=== PATIENT | male | born 1960 | race Caucasian/White ===

== ENCOUNTER → 2017-10-10 16:01 | Outpatient (CLI) | payer OTHER, SELFPAY ==
[2017-10-10 18:03] LABS: BUN 27 mg/dL (7-18); BUN/Creat Ratio 18.5 RATIO (10-20); Calcium,Total 9.1 mg/dL (8.5-10.1); Chloride 104 mmol/L (98-107); Creatinine, Serum 1.46 mg/dL (0.70-1.30); EST Glomerular Filtration Rate 53 mL/min (>60); Est Glom Filt Rate - Afr Amer 64 mL/min (>60); Glucose 89 mg/dL (74-106); Phosphorus 3.3 mg/dL (2.5-4.9); Potassium 3.8 mmol/L (3.5-5.1); Sodium Level 141 mmol/L (136-145)
[2017-10-10 18:14] LABS: Protein, Urine (Random) < 6.0 mg/dL (<11.9)
== END ==
PROVIDERS: Family Provider Preventive Medicine Occupational Medicine; PCP Preventive Medicine Occupational Medicine; Visit Provider Internal Medicine Nephrology
DX: N17.9 Acute kidney failure, unspecified (principal)
CPT/HCPCS: 36415; 80069; 82570; 84156

== ENCOUNTER 2019-10-08 23:36 | Emergency (ER) | payer OTHER, SELFPAY ==
[2019-10-08 23:37] VITALS: BP 132/101; PULSE 95; RESP 14; TEMP 36; O2SAT 96; BMI 23.8
[2019-10-08 23:50] VITALS: BP 139/100; PULSE 80; RESP 16; O2SAT 95
--- NOTE | 2019-10-08 23:57 | ED.VIS.GEN ---
History of Present Illness Chief Complaint: Complaint Detail of Chief Complaint: bladder spasms Informant: Patient Onset: Today Context: Gradual Onset Timing: Waxes and wanes Quality: pain Location: bladder Current Severity: Mild Maximum Severity: Moderate Worsened by: trying to urinate Relieved by: nothing in particular Associated Symptoms: Trouble urinating Narrative: Patient had a TURP [address] mal[address] He had hematuria, lots of bladder spasms, leaking of urine around his Mehta, and the catheter was clogged earlier today, he went to [facility] ER about 1.5 hrs ago, they removed his catheter but did not place a new one in, he states that they were uncomfortable and told him to go to [place] if he was unable to urinate. He states when the catheter was removed, he urinated a little but not a lot. Patient preferred not to go to [place] if he could help it, and is here because now he thinks he may have urinary retention. He states he feels like he needs to urinate but he is just dribbling but does not have a lot of severe discomfort right now. He was having some bladder spasms earlier, but that has resolved since the catheter was removed. He has been urinating some amount of blood. Denies any fevers but they told him he had an infection in the urine and [place], and he was prescribed an antibiotic, he does not know what it is. - Past Medical History (1) Stage III chronic kidney disease Status: Chronic (2) BPH (benign prostatic hyperplasia) Status: Chronic Past Medical History - Allergies and Home Meds Allergies/Adverse Reactions: Allergies No Known Allergies Allergy (Verified 10/08/19 23:37) Primary Care Physician: Cliff Amaro DO [Primary Care Provider] - Surgical History: TURP Lives: Spouse/ Significant Other Drugs: None Review of Systems General: Denies: Chills, Fever, Malaise, Sweats Eyes: Denies: Visual changes - bilaterally, Diplopia ENT: Denies: Rhinorrhea, Sore throat Cardiovascular: Denies: Chest pain, Palpitations Respiratory: Denies: Dyspnea, Cough, Dyspnea on exertion Gastrointestinal: Reports: Abdominal pain. Denies: Nausea, Vomiting, Diarrhea, Melena, Hematochezia Genitourinary: Reports: Dysuria, Hematuria, - - prob urinary retention. Denies: Frequency Musculoskeletal: Reports: Back pain - right low, worse w/ movement, mild. Denies: Neck pain, Swelling, Extremity Pain Skin: Denies: Rash, Wounds Neurological: Denies: Headache, Weakness, Numbness Physical Exam Vital Signs/Narrative: Vital Signs Temp Pulse Resp BP Pulse Ox 10/08/19 23:50 80 16 139/100 H 95 10/08/19 23:37 96.8 F L 95 14 132/101 H 96 Inital Vital Signs reviewed: Yes General: Well nourished, Well developed, No Acute Distress Head: Normocephalic, Atraumatic Eyes: Perrl, EOMI ENT: Moist mucous membranes, No rhinorrhea Neck: Supple, Nontender Cardiovascular: Regular rate, Regular rhythm, No murmurs Respiratory: No distress, CTA bilaterally, Chest nontender Abdomen: Soft, Nontender, Nondistended, Normal bowel sounds Back: Nontender, Normal Inspection. Negative for: CVA tenderness, Spinal tenderness Extremities: Nontender, No edema Skin: Normal color, No rash, No Trauma Neurological: Alert, Oriented x3, Cranial nerves II-XII grossly intact, Normal Strength, Normal Sensation, Normal Gait Psychological: Normal affect, Normal Mood Diagnostic/Tx/Re-eval - Medical Decision Making Patient urinated light bloody urine without clots here in the ER, relatively small amount. He was in a lot of discomfort just afterwards due to burning dysuria, which quickly resolved. He bladder scanned for 0 after that. I discussed with Dr. Rios who was on-call for his urologist. He advised reassuring the patient, he has an appointment tomorrow morning, he should be stable to follow-up then. He does not sound obstructed. Small amounts of hematuria postoperatively especially after the catheter comes out are normal. Discussed reasons to return. Patient is comfortable with that plan. ED Disposition - Plan for ED Patient: Disposition: Home or Assisted Living Diagnosis: Hematuria, S/P TURP Instructions: ED Hematuria, Transurethral Resection of the Prostate (TURP): Home Recovery Referrals: Cliff Amaro DO [Primary Care Provider] - Billy Malik [Other] (as scheduled at 10:30 tomorrow)
== END 2019-10-09 00:44 | disposition home or self-care (01) ==
LOC: ED 10-09 00:43
PROVIDERS: Emergency Provider Emergency Medicine; PCP Preventive Medicine Occupational Medicine
DX: R31.9 Hematuria, unspecified (principal); Z98.890 Other specified postprocedural states; N40.0 Benign prostatic hyperplasia without lower urinary tract symptoms; N18.3 Chronic kidney disease, stage 3 (moderate); Z79.899 Other long term (current) drug therapy
CPT/HCPCS: 99282

== ENCOUNTER 2019-10-11 10:51 | Emergency (ER) | payer OTHER, SELFPAY ==
[2019-10-11 10:53] VITALS: BP 127/91; PULSE 95; RESP 17; TEMP 36.4; O2SAT 95; BMI 23.7
--- NOTE | 2019-10-11 11:04 | CT_ITS ---
STUDY: CT ABDOMEN AND PELVIS WITH CONTRAST REASON FOR EXAM: Male, 59 years old. ABD PAIN S/P TURP 10/01/19, CONSTIPATION X 1 WK, PRESSURE, CHOLECYSTECTOMY RADIATION DOSAGE (If Supplied By Facility): CTDIvol = ( 13.11 ) mGy, DLP = ( 678.42 ) mGycm TECHNIQUE: Transaxial images were obtained from the dome of the diaphragm to the symphysis pubis without oral contrast. IV 100mL Isovue-300 was administered. Sagittal and coronal images were reconstructed. Individualized dose optimization techniques were used for this CT. COMPARISON: None. FINDINGS: The visualized lung bases are unremarkable. The visualized portions of the heart are within normal limits. Normal liver. There are surgical clips in the gallbladder fossa consistent with a prior cholecystectomy. Normal spleen. Normal pancreas. Normal bilateral adrenal glands. Normal right kidney. There is a cyst in the left kidney measures 3 cm. Normal visualized stomach. Normal small intestine. There are multiple colonic diverticula consistent with diverticulosis. The appendix is visualized and appears normal. Normal abdominal aorta. Normal inferior vena cava. Normal retroperitoneum. Normal urinary bladder. Normal abdominal wall. There are diffuse degenerative changes of the visualized lumbar spine. CT/Abdomen/Pelvis W IV Cont ONLY IMPRESSION: Descending colon and sigmoid diverticulosis. Electronically Signed: Lala Barlow, at 13:30 EDT Tel , Service support ,
--- NOTE | 2019-10-11 11:06 | ED.VIS.GEN ---
History of Present Illness Chief Complaint: Constipation Informant: Patient Onset: Days Context: Gradual Onset Timing: Continuous Current Severity: Moderate Maximum Severity: Moderate Narrative: Patient is a 59-year-old male presents to the emergency department with abdominal pain, constipation, and bladder spasm. The patient had a TURP done at [facility] on the 12th of this month. His postoperative care was complicated because he had obstruction of his three-way catheter. It was removed. The patient states he has been voiding without issue. He states over the past 2 days, he has had a lot more spasm in his bladder. He states he has been taking stool softener, but has not had any stool output. He called his urologist referred him to the emergency department. He denies any fevers or chills. He has no history of prior abdominal surgery. He is otherwise been in his normal state of health. Prior similar symptoms: No Recent Illness/Hospitalization: Yes Past Medical History - Allergies and Home Meds Allergies/Adverse Reactions: Allergies NSAIDS (Non-Steroidal Anti-Inflamma Adverse Reaction (Verified 10/11/19 10:53) STAGE 3 KIDNEY DISEASE Primary Care Physician: Cliff Amaro DO [Primary Care Provider] - Prior records reviewed: Yes Past Medical History: None Surgical History: TURP Smoking Status: Former smoker Review of Systems General: Denies: Chills, Fever, Sweats Eyes: Denies: Visual changes - bilaterally, Diplopia ENT: Denies: Rhinorrhea, Sore throat Cardiovascular: Denies: Chest pain, Palpitations Respiratory: Denies: Dyspnea, Cough, Dyspnea on exertion Gastrointestinal: Reports: Abdominal pain, Constipation. Denies: Nausea, Vomiting, Diarrhea, Melena, Hematochezia Genitourinary: Reports: Frequency. Denies: Dysuria, Hematuria Musculoskeletal: Denies: Back pain, Extremity Pain Skin: Denies: Rash, Wounds Neurological: Denies: Headache, Weakness, Numbness Physical Exam Vital Signs/Narrative: Vital Signs Temp Pulse Resp BP Pulse Ox 10/11/19 10:53 97.6 F L 95 17 127/91 H 95 Inital Vital Signs reviewed: Yes General: Well nourished, Well developed, No Acute Distress Head: Normocephalic, Atraumatic Eyes: Perrl, EOMI ENT: Moist mucous membranes, No rhinorrhea Neck: Supple, Nontender Cardiovascular: Regular rate, Regular rhythm, No murmurs Respiratory: No distress, CTA bilaterally, Chest nontender Abdomen: Soft, Nontender, Nondistended, Normal bowel sounds Back: Nontender, Normal Inspection Extremities: Nontender, No edema Skin: Normal color, No rash Neurological: Alert, Oriented x3, Cranial nerves II-XII grossly intact, Normal Strength, Normal Sensation Psychological: Normal affect, Normal Mood Diagnostic/Tx/Re-eval Clinical Impression(s) from Imaging Studies Abdomen/Pelvis CT 10/11/19 11:04 IMPRESSION: Descending colon and sigmoid diverticulosis. Electronically Signed: Lala Barlow, at 13:30 EDT Tel , Service support , Abnormal Lab Results 10/11/19 10/11/19 10/11/19 11:07 11:07 12:25 WBC 6.9 RBC 5.14 Hgb 14.7 Hct 45.2 MCV 87.9 MCH 28.6 MCHC 32.5 RDW Std Deviation 38.7 RDW Coeff of Armen 12.0 Plt Count 318 MPV 10.1 Immature Gran % (Auto) 0.300 Neut % (Auto) 71.8 H Lymph % (Auto) 17.4 L [place] % (Auto) 6.9 Eos % (Auto) 3.2 Baso % (Auto) 0.4 Absolute Neuts (auto) 5.0 Absolute Lymphs (auto) 1.21 Nucleated RBC % 0 Sodium 138 Potassium 3.8 Chloride 102 Carbon Dioxide 26.0 Anion Gap 10 BUN 29 H Creatinine 1.35 H Estim Creat Clear Calc 63.52 Est GFR (MDRD) Af Amer 70 Est GFR (MDRD) Non-Af 58 L BUN/Creatinine Ratio 21.5 H Glucose 112 H Calcium 9.6 Total Bilirubin 1.10 H AST 20 ALT 37 Alkaline Phosphatase 63 Total Protein 8.2 Albumin 3.6 Globulin 4.6 H Albumin/Globulin Ratio 0.8 L Urine Color Brown Urine Clarity Sl. Cloudy Urine pH 5.0 Ur Specific [place] 1.025 Urine Protein 100 H Urine Glucose (UA) Normal Urine Ketones 15 H Urine Occult Blood 250 H Urine Nitrite Positive H Urine Bilirubin 1 H Urine Urobilinogen 4 H Ur Leukocyte Esterase 100 H Urine RBC > 100 SEEN Urine WBC 5-10 SEEN Ur Squamous Epith Cells 0 SEEN Urine Bacteria 1+ Urine Mucus 0 SEEN - Medical Decision Making Patient presents with bladder spasm and constipation after TURP procedure. He is afebrile. His abdomen is soft and nontender. He was concerned that he may have had an obstruction. With his recent intervention, I did want to rule out deep space process. Screening labs were obtained were unremarkable. His urine does show evidence of infection and he has been on antibiotics for 3 days. Culture was added. CT does not show evidence of obstruction or other dangerous process. I did discuss the patient with urology who is in agreement for changing antibiotics to Cipro and adding antispasmodics. This was discussed with the patient and who are comfortable with this. He will be discharged home. Impression 1. Cystitis 2. Bladder spasm ED Disposition - Plan for ED Patient: Instructions: ED Constipation, ED CYSTITIS Male Adult Prescriptions: Ciprofloxacin [Cipro] 500 mg PO BID #14 tab Prescription Printed Oxybutynin [Ditropan] 5 mg PO BID #10 tab Prescription Printed Referrals: Cliff Amaro DO [Primary Care Provider] -
[2019-10-11] MEDS: 0.9% Normal Saline 1,000 ML 125 ML IV (11:23)
[2019-10-11 11:25] LABS: Absolute Lymphocyte Count 1.21 X10^3/uL (0.83-4.51); Basophil# 0.03 X10^3/uL; Basophil% 0.4 % (0-1); Eosinophil# 0.22 X10^3/uL; Eosinophils% 3.2 % (0-5); Hematocrit 45.2 % (40-54); Hemoglobin 14.7 g/dL (13.0-16.5); Lymphocyte # 1.21 X10^3/ul (4.0); Lymphocyte % 17.4 % (19-41); Mean Corp Hgb Conc 32.5 g/dL (32-36); Mean Corpuscular Hgb 28.6 pg (27.0-32.0); Mean Corpuscular Volume 87.9 fL (80-94); Mean Platelet Vol. 10.1 fl (6.2-12.0); Monocyte# 0.48 X10^3/uL; Monocyte% 6.9 % (0-10); NRBC Flagged by Analyzer 0 % (0-5); Neutrophil # 4.98 X10^3/uL (2.7-7.7); Neutrophil % 71.8 % (47-70); Platelet Count 318 K/mm3 (150-450); RBC Distribution Width SD 38.7 fl (35.1-43.9); Red Blood Count 5.14 M/mm3 (4.6-6.2); White Blood Count 6.9 K/mm3 (4.4-11.0)
[2019-10-11 11:40] LABS: ALB/GLOB Ratio 0.8 RATIO (0.9-2.4); AST(SGOT) 20 U/L (15-37); Alanine Aminotransfer ALT/SGPT 37 U/L (16-61); Albumin, Serum 3.6 g/dL (3.2-5.0); Alkaline Phosphatase 63 U/L (45-117); Anion Gap 10 (5-15); BUN 29 mg/dL (7-18); BUN/Creat Ratio 21.5 RATIO (10-20); Calcium,Total 9.6 mg/dL (8.5-10.1); Chloride 102 mmol/L (98-107); Creatinine, Serum 1.35 mg/dL (0.70-1.30); EST Glomerular Filtration Rate 58 mL/min (>60); Est Glom Filt Rate - Afr Amer 70 mL/min (>60); Estimated Creatinine Clearance 63.52 ml/min; Globulin 4.6 g/dL (2.2-4.2); Glucose 112 mg/dL (74-106); Potassium 3.8 mmol/L (3.5-5.1); Protein, Total 8.2 g/dL (6.4-8.2); Sodium Level 138 mmol/L (136-145)
[2019-10-11 12:41] LABS: Mucous, Urine 0 SEEN /hpf (<or=2+); Squamous Epithelial Cells - UA 0 SEEN /hpf (0-5)
[2019-10-11 12:45] LABS: Color, Urine Brown (Yellow); Glucose, Dipstick Normal (Normal); Ketone-Dipstick 15 mg/dl (Negative); Leukocyte Esterase-Dipstick 100 /ul (Negative); Nitrite-Dipstick Positive (Negative); Occult Blood-Urine 250 /ul (Negative); Protein-Dipstick 100 mg/dl (Negative); Specific Gravity, Urine 1.025 (1.002-1.030); Urine Clarity Sl. Cloudy (Clear); Urine Urobilinogen 4 mg/dl (Normal)
[2019-10-11 12:52] LABS: Urine Bilirubin Dipstick 1 mg/dL (Negative)
[2019-10-11 12:56] LABS: Bacteria 1+ /hpf (None Seen); Red Blood Cells-Urine > 100 SEEN /hpf (0-5); White Blood Cells 5-10 SEEN /hpf (0-5)
[2019-10-11 14:13] VITALS: BP 138/77; PULSE 79; RESP 16; O2SAT 98
== END 2019-10-11 14:20 | disposition home or self-care (01) ==
LOC: ED 11:32
PROVIDERS: Emergency Provider Emergency Medicine; PCP Preventive Medicine Occupational Medicine
DX: N30.90 Cystitis, unspecified without hematuria (principal); N32.89 Other specified disorders of bladder; K57.30 Diverticulosis of large intestine without perforation or abscess without bleeding; K59.00 Constipation, unspecified; Z87.891 Personal history of nicotine dependence
CPT/HCPCS: 74177; 80053; 81001; 85025; 87086; 96360; 96361; 99284; J7030; Q9967

== ENCOUNTER 2019-10-13 18:34 | Emergency (ER) | payer OTHER, SELFPAY ==
[2019-10-13 18:34] VITALS: BP 129/92; PULSE 100; RESP 18; TEMP 36.6; O2SAT 95; BMI 23.8
[2019-10-13 18:36] VITALS: BP 129/92; PULSE 100; RESP 18; TEMP 36.6; O2SAT 95
--- NOTE | 2019-10-13 19:06 | ED.VIS.GEN ---
History of Present Illness Chief Complaint: Complaint Informant: Patient Onset: Days Context: Gradual Onset Timing: Intermittent Narrative: Patient is a 59-year-old male that is 12 days postop from a TURP performed by at [facility] presenting with difficulty urinating and bladder spasms. Patient's postoperative course has been located by retention caused by sedimentation or blockage of his three-way Mehta catheter.His three-way Mehta catheter was removed on the , 5 days ago. Since then patient has had some difficulty urinating felt like he has been dribbling and not able to have a good stream of urine. He was seen in our ER on the for continued bladder spasms and discomfort. He was continued to have hematuria as well. At that time he did not have any acute urinary retention. He had a CT his abdomen pelvis which did not show any significant intra-abdominal process. Patient states he is also been constipated that time however he had a really good bowel movement today after 3 days of home medications. Patient is concerned because he gets strong urges to urinate but can only get a very small amount of urine out. He has discomfort in his lower abdomen/suprapubic region. He is currently on Cipro, oxybutynin, fenofibrate and tamsulosin. He denies any other complaints at this time including fever or chills or back pain. Past Medical History - Allergies and Home Meds Allergies/Adverse Reactions: Allergies NSAIDS (Non-Steroidal Anti-Inflamma Adverse Reaction (Verified 10/13/19 18:34) STAGE 3 KIDNEY DISEASE Primary Care Physician: Cliff Amaro DO [Primary Care Provider] - Past Medical History: - - CKD 3, BPH Surgical History: TURP Lives: Spouse/ Significant Other Smoking Status: Former smoker Review of Systems General: Denies: Chills, Fever, Sweats Eyes: Denies: Visual changes - bilaterally, Diplopia ENT: Denies: Rhinorrhea, Sore throat Cardiovascular: Denies: Chest pain, Palpitations Respiratory: Denies: Dyspnea, Cough, Dyspnea on exertion Gastrointestinal: Denies: Abdominal pain, Nausea, Vomiting, Diarrhea, Melena, Hematochezia Genitourinary: Reports: Dysuria, - - Bladder spasms, urinary retention. Denies: Hematuria, Frequency Musculoskeletal: Denies: Back pain, Extremity Pain Skin: Denies: Rash, Wounds Neurological: Denies: Headache, Weakness, Numbness Physical Exam Vital Signs/Narrative: Vital Signs Temp Pulse Resp BP Pulse Ox 10/13/19 18:36 97.9 F 100 18 129/92 H 95 10/13/19 18:34 97.9 F 100 18 129/92 H 95 Inital Vital Signs reviewed: Yes General: Well nourished, Well developed, No Acute Distress Head: Normocephalic, Atraumatic Eyes: Perrl, EOMI ENT: Moist mucous membranes, No rhinorrhea Neck: Supple, Nontender Cardiovascular: Regular rate, Regular rhythm, No murmurs Respiratory: No distress, CTA bilaterally, Chest nontender Abdomen: Soft, Nontender, Nondistended, Normal bowel sounds, - - Bladder is not palpable however he does have tenderness in the suprapubic region. Back: Nontender, Normal Inspection. Negative for: CVA tenderness Extremities: Nontender, No edema Skin: Normal color, No rash Neurological: Alert, Oriented x3, Cranial nerves II-XII grossly intact, Normal Strength, Normal Sensation Psychological: Normal affect, Normal Mood Diagnostic/Tx/Re-eval Laboratory Data 10/13/19 19:44 Urine Color [place] Urine Clarity Cloudy Urine pH 5.0 Ur Specific [place] 1.030 Urine Protein 100 H Urine Glucose (UA) Normal Urine Ketones 5 H Urine Occult Blood 250 H Urine Nitrite Positive H Urine Bilirubin 1 H Urine Urobilinogen 4 H Ur Leukocyte Esterase 100 H Urine RBC 50-100 SEEN Urine WBC 10-25 SEEN Ur Squamous Epith Cells 0 SEEN Calcium Oxalate Crystal RARE Amorphous Sediment 2+ Urine Bacteria 0 SEEN Urine Mucus 0 SEEN - Medical Decision Making Patient is evaluated for bladder spasms and urinary retention. He is 2 weeks postop from a TURP. Urinalysis is consistent with infection. Prior to urinalysis over the last week were more consistent with hematuria with negative cultures. Patient will be switched from Cipro which he is currently on to Keflex. Repeat culture sent. Mehta catheter is placed which he tolerated well. Patient ultimately had 600 cc of dark brown urine out. No obvious clots or sediment. Irrigation was not required. I did discuss the case with his urologist, , who is agreeable with plan. As patient does not have any further spasms he does not need any further medicine for pain control emergency room. Patient is counseled on Mehta catheter care and how to flush it. He is given a leg bag as well as larger bag for nighttime. Patient has Keflex at home so he will take his first dose tonight but he is given a new prescription for 5-day course. Patient is counseled on signs and symptoms requiring return to the emergency room. Patient verbalizes agreement and understand this plan. Patient discharged home in stable and improved condition. ED Disposition - Plan for ED Patient: Disposition: Home or Assisted Living Diagnosis: UTI (urinary tract infection), Urinary retention Instructions: ED Mehta Catheter Care, ED Urinary Retention Male, ED CYSTITIS Male Adult Prescriptions: Cephalexin [Keflex] 500 mg PO BID #10 cap Transmission Status: Received by [facility]/pharmacy #[id number] Referrals: Cliff Amaro DO [Primary Care Provider] - Additional Instructions: Call your urology office on Monday to set up follow-up for later this week for reevaluation of your Mehta catheter. Your urine is highly suspicious for urinary tract infection today. We will restart you on Keflex. Please take a dose tonight when you get home. If your Mehta catheter is not draining or you feel like your bladder is full, please flush the catheter as you were taught today. Return the emergency room with any worsening symptoms.
[2019-10-13] MEDS: Lidocaine Jelly 2% 20 ML Syringe (URO-JET) 20 APPLIC TOPICAL (19:26)
[2019-10-13 20:04] LABS: Bacteria 0 SEEN /hpf (None Seen); Mucous, Urine 0 SEEN /hpf (<or=2+); Squamous Epithelial Cells - UA 0 SEEN /hpf (0-5)
[2019-10-13 20:06] LABS: Color, Urine Amber (Yellow); Glucose, Dipstick Normal (Normal); Ketone-Dipstick 5 mg/dl (Negative); Leukocyte Esterase-Dipstick 100 /ul (Negative); Nitrite-Dipstick Positive (Negative); Occult Blood-Urine 250 /ul (Negative); Protein-Dipstick 100 mg/dl (Negative); Urine Clarity Cloudy (Clear); Urine Urobilinogen 4 mg/dl (Normal)
[2019-10-13 20:23] LABS: Urine Bilirubin Dipstick 1 mg/dL (Negative)
[2019-10-13 20:26] LABS: Amorphous Sediment 2+; White Blood Cells 10-25 SEEN /hpf (0-5)
[2019-10-13 20:27] LABS: Calcium Oxalate Crystals Ur RARE /hpf (<or=2+)
[2019-10-13 20:28] LABS: Red Blood Cells-Urine 50-100 SEEN /hpf (0-5)
[2019-10-13 20:34] VITALS: BP 125/82; PULSE 89; RESP 18; O2SAT 96
== END 2019-10-13 22:19 | disposition home or self-care (01) ==
PROVIDERS: Emergency Provider Emergency Medicine; PCP Preventive Medicine Occupational Medicine
DX: N39.0 Urinary tract infection, site not specified (principal); N40.1 Benign prostatic hyperplasia with lower urinary tract symptoms; R33.8 Other retention of urine; N18.3 Chronic kidney disease, stage 3 (moderate); Z79.899 Other long term (current) drug therapy; Z87.891 Personal history of nicotine dependence
CPT/HCPCS: 51702; 81001; 87086; 99283

== ENCOUNTER 2019-10-15 05:20 | Emergency (ER) | payer OTHER, SELFPAY ==
[2019-10-15 05:21] VITALS: BP 126/86; PULSE 80; RESP 16; TEMP 36.6; O2SAT 99; BMI 25.1
--- NOTE | 2019-10-15 06:05 | ED.VIS.GEN ---
History of Present Illness Chief Complaint: Complaint Informant: Patient Onset: Hours - several Timing: Intermittent Quality: suprapubic pressure, perineal pain Current Severity: Mild Maximum Severity: Severe Worsened by: nothing in particular Relieved by: nothing Narrative: Patient has been seen here multiple times in the past week. Initially seen by me because he was concerned that he had a urinary obstruction after having his clogged catheter removed postoperative from his TURP, he then returned 4 days later for fear of the same thing, he was flowing well, imaging was obtained, and after discussing with his urologist then, the physician placed him on Cipro for possible UTI. The culture from that day returned negative, from my review now. He then returned 2 days later and had urinary retention, had a catheter placed for 600 cc, he was having intense bladder spasms and pain before that, the catheter relieve that discomfort temporarily, but now he presents after having more bladder spasms and although his urine has been flowing through the catheter into the bag, it has been less tonight overnight, and he is fearful that he has an obstructed catheter again. He states he flushed at home, and when he flushed with 30 cc of fluid, only 20 came out, hence his fear. He was switched to cephalexin which she is been taking and another culture was sent, which is not yet returned/resulted. He denies any fevers, nausea, vomiting, other symptoms. He has not followed up with his urologist yet because it has been a holiday weekend, he is due to call today for an appointment. - Past Medical History (1) BPH (benign prostatic hyperplasia) Status: Chronic (2) Stage III chronic kidney disease Status: Chronic Past Medical History - Allergies and Home Meds Allergies/Adverse Reactions: Allergies NSAIDS (Non-Steroidal Anti-Inflamma Adverse Reaction (Verified 10/15/19 05:26) STAGE 3 KIDNEY DISEASE Primary Care Physician: Cliff Amaro DO [Primary Care Provider] - Surgical History: TURP Lives: Spouse/ Significant Other Smoking Status: Never smoker Review of Systems General: Denies: Chills, Fever, Sweats Eyes: Denies: Visual changes - bilaterally, Diplopia ENT: Denies: Rhinorrhea, Sore throat Cardiovascular: Denies: Chest pain, Palpitations Respiratory: Denies: Dyspnea, Cough, Dyspnea on exertion Gastrointestinal: Reports: Abdominal pain. Denies: Nausea, Vomiting, Diarrhea, Melena, Hematochezia Genitourinary: Denies: Hematuria Musculoskeletal: Denies: Neck pain, Back pain, Extremity Pain Skin: Denies: Rash, Wounds Neurological: Denies: Headache, Weakness, Numbness Physical Exam Vital Signs/Narrative: Vital Signs Temp Pulse Resp BP Pulse Ox 10/15/19 05:21 97.9 F 80 16 126/86 H 99 Inital Vital Signs reviewed: Yes General: Well nourished, Well developed, No Acute Distress Head: Normocephalic, Atraumatic Eyes: Perrl, EOMI Cardiovascular: Regular rate, Regular rhythm. Negative for: Tachycardia Respiratory: No distress, CTA bilaterally Abdomen: Soft, Nondistended, Normal bowel sounds, Tender - Mild suprapubic only. Negative for: Guarding, Rebound tenderness Back: Nontender, Normal Inspection. Negative for: CVA tenderness Skin: Normal color, No rash Neurological: Alert, Oriented x3, Cranial nerves II-XII grossly intact, Normal Strength, Normal Sensation, Normal Gait Psychological: Normal Mood, - - Anxious Diagnostic/Tx/Re-eval - Medical Decision Making Patient had a bladder scan was 0. We irrigated his Mehta with 60 cc of sterile saline, each 30 cc aliquot immediately return 20 cc, followed by a small amount later in the catheter. This indicates that the catheter is patent. Patient is concerned why he has not had as much urine output and why it looks dark. He drank 3 bottles of water yesterday. He was advised that overnight, since we are basically sleeping we tend not to drink as much and put out as much urine, plus he also has stage III chronic kidney disease. Patient is reassured and given a belladonna opium suppository which he refused to take but was offered to take it with him. He was requesting a small bottle of saline to take in case he wants to irrigate at home, I recommend not doing this on a routine basis only if he needs to, and he was advised to follow-up with his urologist to continue the cephalexin until the culture returns. ED Disposition - Plan for ED Patient: Disposition: Home or Assisted Living Diagnosis: Bladder spasms Instructions: ED Mehta Catheter Care Referrals: Cliff Amaro DO [Primary Care Provider] - Billy Mccarthy [Other] (thien) Additional Instructions: Do not flush her catheter regularly unless your urologist wants you to. Rather, only attempt to flush if you are having discomfort and there is no output.
[2019-10-15 07:02] VITALS: PULSE 88; RESP 16; O2SAT 98
== END 2019-10-15 07:06 | disposition home or self-care (01) ==
LOC: ED 07:06
PROVIDERS: Emergency Provider Emergency Medicine; PCP Preventive Medicine Occupational Medicine
DX: N32.89 Other specified disorders of bladder (principal); Z96.0 Presence of urogenital implants; N18.3 Chronic kidney disease, stage 3 (moderate); N40.0 Benign prostatic hyperplasia without lower urinary tract symptoms; Z79.899 Other long term (current) drug therapy
CPT/HCPCS: 99282

== ENCOUNTER → 2020-07-10 15:46 | Outpatient (CLI) | payer OTHER, SELFPAY ==
--- NOTE | 2020-07-10 15:49 | CT_ITS ---
STUDY: CT ABDOMEN AND PELVIS WITHOUT CONTRAST REASON FOR EXAM: Male, 60 years old. KIDNEY CYST LEFT SIDE, INCREASING IN SIZE. STAGE 3 CKD. RADIATION DOSAGE (If Supplied By Facility): CTDIvol = ( 10.04 ) mGy, DLP = ( 578.10 ) mGycm TECHNIQUE: Transaxial images were obtained from the dome of the diaphragm to the symphysis pubis without oral contrast, and without intravenous contrast. Sagittal and coronal images were reconstructed. Individualized dose optimization techniques were used for this CT. COMPARISON: 10/11/2019. FINDINGS: The visualized lung bases are unremarkable. Mildly prominent ascending aorta measuring 4.1 cm. The visualized portions of the heart are within normal limits. Normal liver. Status post cholecystectomy. No significant dilatation of the extrahepatic biliary system. Normal spleen. Normal pancreas. Normal bilateral adrenal glands. Normal right kidney. 2.9 x 2.4 x 2.9 cm exophytic cyst of the left kidney. This cyst previously measured 2.6 x 2.2 x 2.9 cm. Normal visualized stomach. Normal small intestine. Diverticulosis of colon. The appendix is visualized and appears normal. Normal abdominal aorta. Normal inferior vena cava. Normal retroperitoneum. Normal urinary bladder. The prostate measures 5.4 x 5.8 cm. Normal abdominal wall. Normal osseous structures. CT/Abdomen/Pelvis without Cont IMPRESSION: Left renal exophytic cyst as noted. Enlarged prostate. Colonic diverticulosis. Mildly prominent ascending aorta. Electronically Signed: Pasquale Winn DO at 16:41 EST Tel [phone], Service support ,
== END ==
PROVIDERS: PCP Preventive Medicine Occupational Medicine; Referring Provider Urology; Visit Provider Urology
DX: N28.1 Cyst of kidney, acquired (principal)
CPT/HCPCS: 74176

== ENCOUNTER 2020-08-04 11:21 | Outpatient (RCR) | payer OTHER, SELFPAY ==
[2020-08-04] MEDS: COVID-19 VACC, MRNA(PFIZER)/PF 30 MCG/0.3 ML SYRINGE IM (16:15)
[2020-08-25] MEDS: COVID-19 VACC, MRNA(PFIZER)/PF 30 MCG/0.3 ML SYRINGE IM (16:05)
== END 2020-10-27 23:59 ==
LOC: IMMUN 11:21
PROVIDERS: PCP Preventive Medicine Occupational Medicine; Visit Provider Family Medicine
DX: Z23 Encounter for immunization (principal)
CPT/HCPCS: 0001A; 0002A; 91300

== ENCOUNTER 2021-04-14 10:08 | Day surgery (SDC) | payer OTHER, SELFPAY ==
[2021-04-14] VITALS (12 sets, daily range): BP systolic 108–145; BP diastolic 72–103; PULSE 71–86; RESP 16–18; TEMP 36.3–36.8; O2SAT 92–99; BMI 24.5
--- NOTE | 2021-04-14 10:25 | EKG12_ITS ---
Test Reason : PRE-OP Blood Pressure : / mmHG Vent. Rate : 063 BPM Atrial Rate : 063 BPM P-R Int : 162 ms QRS Dur : 092 ms QT Int : 374 ms P-R-T Axes : 031 -32 017 degrees QTc Int : 382 ms Normal sinus rhythm Left axis deviation Abnormal ECG Confirmed by ОЛЕГ MORGAN, KAIT ([id number]), desk editor CHERI PALMER ([id number]) on 04/21/2021 9:31:15 AM Referred By: Chidi Farrell Confirmed By:KAIT DENNEY MD
[2021-04-14 10:49] LABS: Hematocrit 46.2 % (40-54); Hemoglobin 15.1 g/dL (13.0-16.5); Mean Corp Hgb Conc 32.7 g/dL (32-36); Mean Corpuscular Hgb 28.8 pg (27.0-32.0); Mean Platelet Vol. 9.5 fl (6.2-12.0); Platelet Count 350 K/mm3 (150-450); RBC Distribution Width CV 12.4 % (11.6-14.6); RBC Distribution Width SD 39.7 fl (35.1-43.9); Red Blood Count 5.25 M/mm3 (4.6-6.2); White Blood Count 5.2 K/mm3 (4.4-11.0)
[2021-04-14] MEDS: Lactated Ringers 1,000 ML 15 ML IV ×2 (10:54→14:00)
--- NOTE | 2021-04-14 12:10 | PROS_PTH ---
PATIENT: STEVE CLAUDIO LOC: [facility] [place] U#:[id number] AGE/SX: 61/M ROOM: RE04/14/[address]: Dr. Chidi Farrell MD : 1960 BED: DIS: 04/15/2021 SPEC #: [id number] RECD: 04/16/21 13:01 STATUS: BUCK REVictoria #: [id number] CRAIG: 04/14/21 12:[address]: Chidi Farrell DEPT: SURGICAL PATHOLOGY RECD BY: Clementina Juarez ENTERED: 04/16/21 13:45 SP TYPE: TURP OTHR DR: Dr. Cliff Amaro, DO Tissues: Prostate, NOS Procedures: Surgery Specimen Level IV HEADER OPERATION: Cystoscopy, transurethral resection of the prostate with the Olympus, removal of small bladder stone PRE-OP DIAGNOSIS: Benign prostatic hyperplasia with urinary obstruction TISSUE SUBMITTED: Prostate tissue and bladder stone MICROSCOPIC DIAGNOSIS Prostate, TUR: Benign prostatic hyperplasia, glandular and stromal type. Focal chronic inflammation. Fragments of stones (gross only). SJ 04/19/21 MICROSCOPIC DESCRIPTION Slides are reviewed. GROSS DESCRIPTION Received is one container labeled with the patient's name and designated prostate tissue. The specimen consists of multiple irregular fragments of pink-weber, rubbery, soft tissue that in aggregate weigh 14.4 gm and measure in aggregate 6.0 x 6.0 x 2.5cm. A few fragments of stones are also noted. Plastic Surgery Nurse tissue is submitted in ten cassettes. /HODA:phuong 04/16/21 TC:5 CPT: 52921
[2021-04-14] MEDS: Cefazolin 2 GM in 0.9% Normal Saline 100 ML IV (12:56)
--- NOTE | 2021-04-14 14:07 | PCM.HP.STD ---
HPI - General HPI Narrative STEVE CLAUDIO, is a 61 M who presents for a transurethral resection of the prostate, in the past he had a vaporization of the prostate with the button but it was an incomplete resection and he still has significant obstruction on cystoscopy so today we plan to proceed with a TURP [facility] Medical History (Updated 04/13/21 @ 09:46 by Kamilla Schrader) Alcohol use BPH (benign prostatic hyperplasia) Cardiology follow-up encounter CPAP (continuous positive airway pressure) dependence GERD (gastroesophageal reflux disease) High cholesterol History of renal disease Hypertriglyceridemia Indwelling urethral catheter present TATE on CPAP Prostate disease Smoker Stage III chronic kidney disease Wears contact lenses Wears glasses Home Medications fenofibrate 160 mg PO DAILY 10/11/19 [History Last Taken Unknown] ciprofloxacin HCl 500 mg PO BID #14 tab 04/14/21 [Rx Last Taken Unknown] Allergy/AdvReac Type Severity Reaction Status Date / Time NSAIDS (Non-Steroidal AdvReac STAGE 3 Verified 04/14/21 10:44 Anti-Inflamma KIDNEY DISEASE Family History (Updated 04/07/21 @ 16:41 by Janice Finch) Father Atrial fibrillation Cardiac pacemaker in situ Surgical History (Updated 04/13/21 @ 09:46 by Kamilla Schrader) History of back surgery History of cholecystectomy History of transurethral resection of prostate Hx of neck surgery Social History (Updated 04/07/21 @ 16:42 by Janice Finch) Smoking Status: Current some day smoker tobacco type: cigars alcohol intake: current details: Wine 3-5x per week substance use type: does not use caffeine: Yes Type: coffee Number of servings: 2 Vital Signs Vital Signs Vital Signs: 04/14/21 10:47 Temperature 97.3 F L Temperature Source Temporal Pulse Rate 71 Respiratory Rate 16 Respiratory Pattern Normal Blood Pressure 108/85 H Blood Pressure Mean 92 Blood Pressure Source Monitor Blood Pressure Position Semi-Fowlers Blood Pressure Location Left Arm Pulse Ox 97 Oxygen Delivery Method Room Air Weight Weight: 80 kg Body Mass Index (BMI) 24.5 Results Lab / Micro Data Result Diagrams: 04/14/21 10:40 Labs: Laboratory Results - last 24 hr 04/14/21 10:40: WBC 5.2, RBC 5.25, Hgb 15.1, Hct 46.2, MCV 88.0, MCH 28.8, MCHC 32.7, RDW Std Deviation 39.7, RDW Coeff of Armen 12.4, Plt Count 350, MPV 9.5
--- NOTE | 2021-04-14 14:07 | PCM.DC ---
Discharge Instructions Diet Discharge Diet: No restrictions Activity Discharge Activity: Return to Normal Activity and May Not Drive (while taking narcotic pain medications.) Dressing / Incision Call your doctor if you observe: Fever of 101 or Higher Follow Up Care Please Follow Up With: Chidi Farrell MD When: Call [phone] for an appointment Test Results: Test results from this visit will be discussed in further detail at your follow-up appointment, if applicable. Discharge Plan Admission Primary Reason for Your Visit: TURP Attending Provider: Chidi Farrell Primary Care Provider: Cliff Amaro Instructions Patient Instructions: RAMSES Home Recovery Discharge Orders/Prescriptions Prescriptions: New ciprofloxacin HCl 500 mg tablet 500 mg PO BID Qty: 14 RF: 0 Continued fenofibrate 160 MG tablet 160 mg PO DAILY RF: 0 Discontinued tamsulosin 0.4 mg capsule 0.4 mg PO BID RF: 0 dutasteride [Avodart] 0.5 mg Capsule 0.5 mg PO DAILY RF: 0 Referrals / Follow Up: Chidi Farrell MD [STAFF PHYSICIAN] - Cliff Amaro DO [Primary Care Provider] - Disposition Disposition (needs filled in before D/C Order can be placed): Home, Self Care
--- NOTE | 2021-04-14 14:08 | OP.PCM_ITS ---
Report of Operation Date of Procedure: 04/14/21 Pre-Operative Diagnosis: BPH with obstruction prior vaporization procedure he d id not have a TURP before Post-Operative Diagnosis: Same Surgery/Procedure Performed:: Transurethral resection of the prostate and cystolithalopaxy small. Description of Surgical Findings:: Patient was taken back to the operating room after smooth induction of general anesthesia he was placed in dorsolithotomy position. The penis and testicles were prepped and draped in usual sterile fashion I went into the bladder with a 26 [place] continuous-flow resectoscope using the visual obturator I inspected and found that he had a bladder stone in the back of the bladder this was a small stone less than 2.5 cm in size. He also had a lot of obstructive tissue it looks like at the bladder neck some sort of vaporization procedure had been done there was some opening at the bladder neck kind of undermining undermining the bladder up a little bit very close to the ureteral orifices is able to find the left and right ureteral orifice. I then switched over to the resectoscope but be behind the bladder neck that was vaporized with some sort of vaporization procedure it was not a TURP. I went into the bladder and using the cystoscope I had identified the stone and then the stone was removed performing litholapaxy. After this was done then I went back and proceeded with a TURP. On inspection he has NOT had aTUrP before it was sometime of vaporization procedure but had left significant tissue residual causing obstruction. Therefore this is his first TURP using a resectoscope. I then sewed the prostatic tissue from the bladder neck all the way back to the verumontanum I resected the right lobe of the prostate I resected the left lobe of the prostate I resected the apical tissue very carefully I did a flow test had a wide open flow I then used cauterization to cauterize the channel to control for bleeding on inspection at the end of the case had a nice open channel from the verumontanum all with way to the bladder neck the left and right ureteral orifice were open and clear I put a catheter in the bladder irrigated and put on continuous bladder irrigation patient was taken back to the PACU in good condition. CPT 16001 CPT 83829 Surgeon: luisa Type of Anesthesia: General Drains: 22fr 3 way Admit VTE Documentation VTE Present on Admission: No VTE Mechan Device Prophylaxis: SCD's VTE Pharm Prophylaxis ordered?: No
--- NOTE | 2021-04-14 15:48 | SUR.PHASEI ---
1520 12.5 mg benadryl 1520 10mg reglan Meds give d/t nausea post-op, see PACU order sheet.
[2021-04-14] MEDS: Acetaminophen 500 MG Tablet PO (21:55)
--- NOTE | 2021-04-14 22:00 | PCS.PANDOC ---
PANDEMIC DOCUMENTATION INITIATED: Date: 04/14/2021 Time: 9537
[2021-04-15 00:32] VITALS: BP 106/67; PULSE 64; RESP 18; TEMP 36.7; O2SAT 95
[2021-04-15 05:35] VITALS: BP 108/78; PULSE 63; RESP 18; TEMP 36.8; O2SAT 97
[2021-04-15 08:01] VITALS: BP 115/78; PULSE 69; RESP 14; TEMP 36.7; O2SAT 95
[2021-04-15] MEDS: Fenofibrate 145 MG Tablet PO (08:17)
[2021-04-15 11:30] VITALS: BP 128/90; PULSE 73; RESP 14; TEMP 36.7; O2SAT 92
[2021-04-15] MEDS: Ciprofloxacin 500 MG Tablet PO (12:46)
[2021-04-15] MEDS: Acetaminophen 500 MG Tablet PO (15:03)
--- NOTE | 2021-04-15 15:13 | NURSING ---
1300-MASSEY REMOVED, PT TOLERATED WELL. IV SITE COVERED AND PT SET UP FOR SHOWER
== END 2021-04-15 17:00 | disposition home or self-care (01) ==
LOC: SDC 10:08 → AC 10:09 → MS3 15:56
PROVIDERS: Anesthesiology; PCP Preventive Medicine Occupational Medicine; Referring Provider Urology; Visit Provider Urology
PROC: (CPT 52317; principal; 2021-04-14 12:00)
DX: N40.1 Benign prostatic hyperplasia with lower urinary tract symptoms (principal); N13.8 Other obstructive and reflux uropathy; N21.0 Calculus in bladder; E78.1 Pure hyperglyceridemia; E78.00 Pure hypercholesterolemia, unspecified; G47.33 Obstructive sleep apnea (adult) (pediatric); K21.9 Gastro-esophageal reflux disease without esophagitis; Z79.899 Other long term (current) drug therapy; F17.290 Nicotine dependence, other tobacco product, uncomplicated
CPT/HCPCS: 00914; 52317; 52601; 85027; 88305; 93005; 99406; J7120; J2405

== ENCOUNTER → 2021-05-04 13:40 | Outpatient (CLI) | payer OTHER, SELFPAY ==
--- NOTE | 2021-05-04 13:42 | ECHOD_ITS ---
Reason For Study: Family Hx Procedure This was a 2D Doppler, Color Flow transthoracic echocardiogram. The study was technically difficult. Exam performed in department. Left Ventricle Normal LV size. Left ventricular systolic function is normal. The estimated ejection fraction is 65 %. No evidence for diastolic dysfunction. No regional wall motion abnormalities noted. Right Ventricle Normal RV size. Normal systolic function. Atria Normal left atrium. Normal right atrium. No doppler evidence for ASD. Mitral Valve There is no mitral annular calcification. Normal mitral valve. Trivial mitral valve insufficiency. Tricuspid Valve Normal tricuspid valve. Mild tricuspid valve insufficiency. Right ventricular systolic pressure estimated to be 20 mmHg. Aortic Valve Trisinus/trileaflet aortic valve. Normal aortic valve. Trivial aortic valve insufficiency. Pulmonic Valve The pulmonic valve is not well visualized. Trivial pulmonic valve insufficiency. Great Vessels Mildly dilated aortic root. Pericardium/Pleural No pericardial effusion. MMode/2D Measurements & Calculations LVIDd: 3.9 cm IVSd: 1.5 cm Ao root diam: 4.2 cm LVIDs: 2.7 cm LVPWd: 1.1 cm LA dimension: 3.4 cm FS: 32.1 % LAV(MOD-bp): 41.8 ml LA A4 area: 13.7 cm2 RA A4 area: 12.9 cm2 LAV(MOD-bp) Indexed: 20.8 ml/m2 LAV(MOD-sp2): 54.7 ml LAV(MOD-sp4): 31.6 ml Time Measurements MV dec time: 0.20 sec Doppler Measurements & Calculations MV E max jose: 68.7 cm/sec Lat Peak E' Jose: 7.7 cm/sec Med Peak E' Jose: 6.9 cm/sec MV A max jose: 87.2 cm/sec E/E' lat: 8.9 E/E' med: 9.9 MV E/A: 0.79 MV V2 max: 83.8 cm/sec MV P1/2t max jose: 55.5 cm/sec Ao V2 max: 122.1 cm/sec MV max P.8 mmHg MV P1/2t: 70.9 msec Ao max P.0 mmHg MV V2 mean: 44.1 cm/sec MV dec slope: 229.3 cm/sec2 MV mean P.90 mmHg MVA(P1/2t): 3.1 cm2 MV V2 VTI: 22.7 cm LV V1 max: 107.2 cm/sec PA V2 max: 77.6 cm/sec TR max jose: 204.9 cm/sec LV V1 max P.6 mmHg TR max P.8 mmHg ECHO/Echo Complete Interpretation Summary The study was technically difficult. Left ventricular systolic function is normal. The estimated ejection fraction is 65 %. Trivial mitral valve insufficiency. Mild tricuspid valve insufficiency. Trivial aortic valve insufficiency. Trivial pulmonic valve insufficiency. Mildly dilated aortic root. Right ventricular systolic pressure estimated to be 20 mmHg. No evidence for diastolic dysfunction. Ordering Physician: Ezio Layton Referring Physician: Cliff Amaro Performed By: Brodwolf, García, RCS
== END ==
PROVIDERS: PCP Preventive Medicine Occupational Medicine; Referring Provider Internal Medicine Cardiovascular Disease; Visit Provider Internal Medicine Cardiovascular Disease
DX: E78.1 Pure hyperglyceridemia (principal); Z82.49 Family history of ischemic heart disease and other diseases of the circulatory system; R53.83 Other fatigue
CPT/HCPCS: 93306

== ENCOUNTER 2021-05-26 15:43 | Outpatient (CLI) | payer OTHER, SELFPAY ==
--- NOTE | 2021-05-26 15:46 | CT_ITS ---
EXAM: CT CHEST WITH INTRAVENOUS CONTRAST : 1960 CLINICAL INDICATION: Aortic root dilitation TECHNIQUE: Helically acquired images were obtained of the chest with intravenous contrast. This CT exam was performed using one or more of the following dose reduction techniques: automated exposure control, adjustment of the mA and/or kV according to patient size, and/or use of iterative reconstruction technique. This report was created using [employer] report generation technology. CONTRAST: IV 100mL Isovue-370 COMPARISON: None. FINDINGS: LUNGS AND PLEURAL SPACES: Unremarkable. No mass. No consolidation or edema. No pleural effusion or thickening. No pneumothorax. HEART: Unremarkable. Heart size is normal. No pericardial effusion. No significant coronary artery calcifications. MEDIASTINUM: Unremarkable. No mediastinal or hilar adenopathy. Esophagus is unremarkable. No hiatal hernia. THYROID: Unremarkable. No thyroid lesions. BONES/JOINTS: Unremarkable. No suspicious lytic or blastic abnormality. VASCULATURE: Ascending thoracic aorta measures 3.8 cm in maximum lateral dimension and 4.0 cm in AP dimension. Aortic arch measures 2.8 cm in maximum diameter. Descending thoracic aorta measures 2.7 cm in maximal diameter. No evidence of aortic dissection. No obvious central pulmonary embolism although this study was not performed with the pulmonary embolism protocol. LIVER: Mild hepatic steatosis. Several foci of enhanced contrast accumulation along the dome of the liver involving the right and left lobes suggestive of flash filling of small hemangiomata. KIDNEYS AND URETERS: No change in the 3 cm left renal cyst. CT/Chest WITH Contrast IMPRESSION: 1. No acute cardiopulmonary abnormality. 2. 4 cm maximal diameter of the ascending thoracic aorta. 3. Mild hepatic steatosis. Individualized dose optimization techniques were used for this CT. at 0830 Reported and signed by: Charles Olivares MD Electronically Signed: Charles Olivares MD at 8:29 EST Tel , Service support ,
[2021-05-26 16:05] LABS: CREATININE FINGERSTICK 1.1 mg/dL (0.70-1.30); EGFR FINGERSTICK > 60.0000 mL/min (>60)
== END 2021-05-26 23:59 | disposition short-term general hospital (02) ==
LOC: CT 15:45
PROVIDERS: PCP Family Medicine; Referring Provider Internal Medicine Cardiovascular Disease; Visit Provider Internal Medicine Cardiovascular Disease
DX: I77.810 Thoracic aortic ectasia (principal)
CPT/HCPCS: 71260; Q9967

== ENCOUNTER 2021-06-17 11:09 | Outpatient (CLI) | payer OTHER, SELFPAY ==
--- NOTE | 2021-06-17 12:53 | STRESSREP_ITS ---
Stress Test Report Date: 06-17-2021 Procedure: Exercise tolerance test/imaging study Indications: Family history of cardiovascular disease; chronic renal insuffic iency Consent: Per the patient Procedure: The patient exercised on a Basil protocol for 10 minutes and 15 seconds completing Stage III and 1 minute and 15 seconds of Stage IV achieving a peak heart rate of 160 bpm (100% predicted maximal heart rate) with a peak blood pressure 142/74 mmHg and a peak MET capacity of 13 METs. The baseline ECG demonstrated normal sinus rhythm. The peak exercise ECG demonstrated somatic/motion artifact with no obvious ECG changes. There were no cardiac dysrhythmias pretest, during exercise, or recovery. The functional capacity was considered good. There was no complaint of chest discomfort during exercise or recovery. The examination was discontinued secondary to leg discomfort. Impression: 1. Technically adequate (percent predicted maximal heart rate greater than 85%) exercise tolerance test 2. Peak exercise ECG somatic/motion artifact with no obvious ECG changes 3. There were no cardiac dysrhythmias pretest, during exercise, or recovery This note was generated with [employer] software. It may contain incorrect words, spelling, and punctuation that were not noted in checking the note before signing.
== END 2021-06-17 23:59 | disposition short-term general hospital (02) ==
LOC: CVS 11:13
PROVIDERS: PCP Family Medicine; Referring Provider Internal Medicine Cardiovascular Disease; Visit Provider Internal Medicine Cardiovascular Disease
DX: E78.1 Pure hyperglyceridemia (principal); R53.83 Other fatigue; Z82.49 Family history of ischemic heart disease and other diseases of the circulatory system
CPT/HCPCS: 93017

== ENCOUNTER → 2022-09-26 | Outpatient (CLI) | payer OTHER, SELFPAY ==
--- NOTE | 2022-09-26 14:32 | CT_ITS ---
STUDY: CT MAXILLOFACIAL SINUSES REASON FOR EXAM: Male, 62 years old. CHRONIC SINUSITIS RADIATION DOSAGE (If Supplied By Facility): CTDIvol = ( 33.06 ) mGy, DLP = ( 767.73 ) mGycm TECHNIQUE: The patient was scanned in a multi detector CT scanner. High resolution axial imaging was performed without the administration of intravenous contrast material. Sagittal and coronal images were reconstructed. Individualized dose optimization techniques were used for this CT. COMPARISON: None. FINDINGS: FRONTAL SINUSES: Minimal mucosal thickening of the left frontal sinus. ETHMOIDAL SINUSES: Partial opacification of the ethmoid sinuses bilaterally. MAXILLARY SINUSES: Partial opacification of the right maxillary sinus. Mucosal thickening of the left maxillary sinus. SPHENOIDAL SINUSES: Normal aeration, without mucosal inflammatory disease. Compromise of the ostiomeatal contours bilaterally due to mucosal thickening worse on the right side. Normal bilateral middle turbinates. Normal bilateral inferior turbinates. There is a right sided nasal septal deviation with a right sided nasal septal spur. There is patency of the bilateral nasal airways. The visualized osseous structures are normal. The visualized bilateral orbital contents are normal. CT/Sinus/Facial Bone IMPRESSION: Partial opacification of the ethmoid sinuses bilaterally. Partial opacification of the right maxillary sinus and mucosal thickening of the left maxillary sinus. Minimal mucosal thickening of the left frontal sinus. Right-sided nasal septal deviation with a right sided nasal septal spur. Electronically Signed: Jeb Rizvi MD at 14:58 EDT ,
== END | disposition home or self-care (01) ==
LOC: CT 14:30
PROVIDERS: PCP Family Medicine; Referring Provider Otolaryngology; Visit Provider Otolaryngology
DX: J32.8 Other chronic sinusitis (principal)
CPT/HCPCS: 70486

== ENCOUNTER → 2023-01-13 | Outpatient (CLI) | payer OTHER, SELFPAY ==
--- NOTE | 2023-01-13 17:49 | CT_ITS ---
STUDY: CT MAXILLOFACIAL SINUSES REASON FOR EXAM: Male, 63 years old. atypical facial pain RADIATION DOSAGE (If Supplied By Facility): CTDIvol = ( 33.06 ) mGy, DLP = ( 837.98 ) mGycm TECHNIQUE: The patient was scanned in a multi detector CT scanner. High resolution axial imaging was performed without the administration of intravenous contrast material. Sagittal and coronal images were reconstructed. Individualized dose optimization techniques were used for this CT. COMPARISON: None. FINDINGS: FRONTAL SINUSES: Slight mucosal thickening of the inferior left frontal sinus. Right frontal sinus is normal. ETHMOIDAL SINUSES: Moderate bilateral ethmoid mucosal thickening. MAXILLARY SINUSES: Focal mucosal thickening of the inferior posterior right maxillary sinus with mild inferior left maxillary sinus mucosal thickening. SPHENOIDAL SINUSES: Normal aeration, without mucosal inflammatory disease. There is patency of the bilateral maxillary infundibuli with normal uncinate processes, ethmoid bullae, and hiatus semilunaris. Normal bilateral middle turbinates. Normal bilateral inferior turbinates. There is a right sided nasal septal deviation with a right sided nasal septal spur. There is patency of the bilateral nasal airways. There is soft tissue density of the bilateral external auditory canals, probable cerumen. The visualized osseous structures are normal. The visualized bilateral orbital contents are normal. CT/Sinus/Facial Bone IMPRESSION: Ethmoid dominant paranasal sinus disease. Electronically Signed: Graham Galeana (Brooks), at 21:00 EDT Reading Location ID and State: [facility] / [place] , Service support ,
== END | disposition home or self-care (01) ==
PROVIDERS: PCP Family Medicine; Referring Provider Otolaryngology; Visit Provider Otolaryngology
DX: G50.1 Atypical facial pain (principal)
CPT/HCPCS: 70486

== ENCOUNTER → 2023-10-12 | Outpatient (CLI) | payer OTHER, SELFPAY ==
[2023-10-12 17:15] LABS: PSA,Total - Annual Screen 2.27 ng/mL (0.00-4.00)
== END | disposition home or self-care (01) ==
PROVIDERS: PCP Family Medicine; Referring Provider Urology; Visit Provider Urology
DX: Z12.5 Encounter for screening for malignant neoplasm of prostate (principal)
CPT/HCPCS: 36415; 84153; G0103

== ENCOUNTER → 2023-12-02 | Outpatient (CLI) | payer OTHER, SELFPAY ==
[2023-12-02 08:30] LABS: AST(SGOT) 31 U/L (15-37); Alanine Aminotransfer ALT/SGPT 40 U/L (16-61); Albumin, Serum 3.9 g/dL (3.2-5.0); Alkaline Phosphatase 55 U/L (45-117); Anion Gap 4 (5-15); BUN 32 mg/dL (7-18); BUN/Creat Ratio 24.2 RATIO (10-20); Calcium,Total 9.6 mg/dL (8.5-10.1); Chloride 107 mmol/L (98-107); Cholesterol 176 mg/dL (200); Creatinine, Serum 1.32 mg/dL (0.70-1.30); EST Glomerular Filtration Rate 58 mL/min (>60); Est Glom Filt Rate - Afr Amer 71 mL/min (>60); Globulin 3.8 g/dL (2.2-4.2); Glucose 117 mg/dL (74-106); High Density Lipoprotein 66 mg/dL; Protein, Total 7.7 g/dL (6.4-8.2); Sodium Level 139 mmol/L (136-145); Triglycerides 59 mg/dL; Very Low Density Lipoprotein 12 mg/dL (5-40)
== END | disposition home or self-care (01) ==
LOC: LAB 07:27
PROVIDERS: PCP Family Medicine; Referring Provider Family Medicine; Visit Provider Family Medicine
DX: Z00.00 Encounter for general adult medical examination without abnormal findings (principal); E78.1 Pure hyperglyceridemia
CPT/HCPCS: 36415; 80053; 80061

== ENCOUNTER → 2024-02-01 | Outpatient (CLI) | payer OTHER, SELFPAY ==
[2024-02-01 16:32] LABS: BUN 28 mg/dL (7-18); BUN/Creat Ratio 17.9 RATIO (10-20); Calcium,Total 9.6 mg/dL (8.5-10.1); Chloride 106 mmol/L (98-107); Creatinine, Serum 1.56 mg/dL (0.70-1.30); EST Glomerular Filtration Rate 48 mL/min (>60); Est Glom Filt Rate - Afr Amer 58 mL/min (>60); Glucose 94 mg/dL (74-106); Potassium 3.9 mmol/L (3.5-5.1); Sodium Level 139 mmol/L (136-145)
== END | disposition home or self-care (01) ==
LOC: LAB 15:42
PROVIDERS: PCP Family Medicine; Referring Provider Internal Medicine Nephrology; Visit Provider Internal Medicine Nephrology
DX: N18.31 Chronic kidney disease, stage 3a (principal)
CPT/HCPCS: 36415; 80069

== ENCOUNTER 2024-04-03 11:25 | Day surgery (SDC) | payer OTHER, SELFPAY ==
--- NOTE | 2024-03-21 13:49 | EKG12_ITS ---
Test Reason : PREOP Blood Pressure : */* mmHG Vent. Rate : 62 BPM Atrial Rate : 62 BPM P-R Int : 154 ms QRS Dur : 92 ms QT Int : 378 ms P-R-T Axes : 8 -34 28 degrees QTcB Int : 383 ms Normal sinus rhythm Left axis deviation Moderate voltage criteria for LVH, may be normal variant Abnormal ECG Confirmed by BRITT MORGAN, CITLALY ([id number]), market editor MAYNOR MAYORGA ([id number]) on 03/22/2024 11:10:02 AM Referred By: Pascual Davenport Confirmed By: CITLALY DE LA TORRE MD
[2024-03-21 14:08] LABS: Absolute Lymphocyte Count 1.82 X10^3/uL (0.83-4.51); Absolute Neutrophil Count 3.1 X10^3/uL (2.0-7.7); Basophil# 0.04 X10^3/uL; Basophil% 0.7 % (0-1); Eosinophils% 3.6 % (0-5); Hematocrit 46.2 % (40-54); Hemoglobin 15.4 g/dL (13.0-16.5); Lymphocyte # 1.82 X10^3/ul (0.83-4.51); Lymphocyte % 32.6 % (19-41); Mean Corp Hgb Conc 33.3 g/dL (32-36); Mean Corpuscular Hgb 29.3 pg (27.0-32.0); Mean Corpuscular Volume 87.8 fL (80-94); Mean Platelet Vol. 10.2 fl (6.2-12.0); Monocyte# 0.46 X10^3/uL; Monocyte% 8.2 % (0-10); NRBC Flagged by Analyzer 0 % (0-5); Neutrophil # 3.05 X10^3/uL (2.7-7.7); Neutrophil % 54.7 % (47-70); Platelet Count 288 K/mm3 (150-450); RBC Distribution Width CV 12.9 % (11.6-14.6); RBC Distribution Width SD 41.4 fl (35.1-43.9); Red Blood Count 5.26 M/mm3 (4.6-6.2); White Blood Count 5.6 K/mm3 (4.4-11.0)
[2024-03-21 14:37] LABS: Anion Gap 4 (5-15); BUN 24 mg/dL (7-18); BUN/Creat Ratio 16.8 RATIO (10-20); Calcium,Total 9.6 mg/dL (8.5-10.1); Chloride 107 mmol/L (98-107); Creatinine, Serum 1.43 mg/dL (0.70-1.30); EST Glomerular Filtration Rate 53 mL/min (>60); Est Glom Filt Rate - Afr Amer 64 mL/min (>60); Glucose 96 mg/dL (74-106); Potassium 4.1 mmol/L (3.5-5.1); Sodium Level 140 mmol/L (136-145)
[2024-03-21 14:40] LABS: Magnesium 2.7 mg/dL (1.6-2.6)
[2024-03-21 15:20] LABS: HIV - WCH Non-Reactive (Nonreactive); Hepatitis B Surface Antibody Non-Reactive; Hepatitis C Antibody Non-Reactive (Nonreactive)
[2024-03-23 05:08] LABS: Hepatitis A AB, Total Negative (Negative)
[2024-04-03] VITALS (8 sets, daily range): BP systolic 133–147; BP diastolic 87–102; PULSE 65–89; RESP 16–22; TEMP 35.8–37; O2SAT 92–100; BMI 25.0
--- NOTE | 2024-04-03 12:09 | PCM.PRE.AN2 ---
ASA Classification* ASA Classification ASA Classification: 2 Assessment & Plan Anesthesia* Anesthesia Assessment Anesthesia Assessment: Discussed sedation and/or anesthesia options, risks, benefits, and alternatives with patient/parents/legal guardian/POA. Questions invited. The patient/parents/legal guardian/POA seems to understand and agrees to proceed with anesthesia plan. Reviewed the physical assessment, medical history, allergy history and patient home medications list prior to surgery/procedure/anesthetic and documented any changes. Performed airway and anesthesia risk assessments. Anesthesia Type Anesthesia Type: General Anesthesia Focused Assessment* Airway Assessment Mouth opens: >3 cm Mallampati Score: II Focused Labs Anesthesia Preop lab: CBC WBC 5.6 K/mm3 (4.4-11.0) 03/21/24 13:38 RBC 5.26 M/mm3 (4.6-6.2) 03/21/24 13:38 Hgb 15.4 g/dL (13.0-16.5) 03/21/24 13:38 Hct 46.2 % (40-54) 03/21/24 13:38 Plt Count 288 K/mm3 (150-450) 03/21/24 13:38 CHEMISTRY Potassium 4.1 mmol/L (3.5-5.1) 03/21/24 13:38 Sodium 140 mmol/L (136-145) 03/21/24 13:38 Magnesium 2.7 mg/dL (1.6-2.6) H 03/21/24 13:38 Phosphorus 3.0 mg/dL (2.5-4.9) 02/01/24 16:04 BUN 24 mg/dL (7-18) H 03/21/24 13:38 Creatinine 1.43 mg/dL (0.70-1.30) H 03/21/24 13:38 Glucose 96 mg/dL (74-106) 03/21/24 13:38 COAG Pre-Assessment Diagnosis/Proposed Procedure Planned Operative Procedure(s): LEFT EXTRAFORAMINAL DISECTOMY L4-5 Anesthesia History 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 When Was Last Pacemaker Check QUESTION #4 FULL TEXT: You/Your Family Experience fever (hyperthermia) with Anesthesia Last Oral Intake Last Oral intake: Last Oral Intake NPO since Meds taken in AM with sips of water? Meds patient instructed to take am of surgery PONV PONV - engineering operations leader: PONV - engineering operations leader Female No 03/20/24 09:14 HX of Motion Sickness Yes 03/20/24 09:14 HX of N/V After Surgery No 03/20/24 09:14 Non-Smoker No 03/20/24 09:14 Duration of Surgery greater Yes 03/20/24 09:14 than 60 minutes Number of Risk Factors 2 03/20/24 09:14 PONV Score Moderate Risk 03/20/24 09:14 Height & Weight Height & Weight: Anesthesia: Height & Weight Height 5 ft 11 in 02/29/24 14:53 Respiratory Assessment Respiratory Assessment - engineering operations leader: Respiratory Tract Infection Hx - engineering operations leader Hx Respiratory Tract Infection No 03/20/24 09:14 STOP Sleep Apnea STOP Sleep Apnea - engineering operations leader: STOP Sleep Apnea - engineering operations leader Hx Hypertension Yes: JUST STARTED ON 03/20/24 09:14 AMLODIPINE 03/17/24 Hx Sleep Apnea Yes 03/20/24 09:14 CPAP Yes: NONCOMPLIANT 03/20/24 09:14 BIPAP No 03/20/24 09:14 Do you snore loudly (louder than talking or can be heard Do you often feel tired/ fatigued/ sleepy during daytime? Has anyone observed you stop breathing during sleep? STOP Results Positive 03/20/24 09:14 QUESTION #5 FULL TEXT : Do you snore loudly (louder than talking or can be heard through closed doors)? Tobacco Use History Tobacco Use History - engineering operations leader: Tobacco Use History - engineering operations leader Tobacco Use Smoking Status Current some day smoker 03/20/24 09:14 Hx Tobacco Use Yes 03/20/24 09:14 Years Smoking Packs Smoked per Day Smoking Cessation Date was within the last 15 years Hx Smoking Cessation Date Hx Smoking Cessation No 03/20/24 09:14 Counseling Hematologic Medial History Hematologic Hx - engineering operations leader: Hematologic Medical Hx - financial brokers Hx of Blood Transfusion No 03/20/24 09:14 Hx of Transfusion in last 3 No 03/20/24 09:14 Months Date of Last Transfusion (if within last 3 months) Ever experience any problems No 03/20/24 09:14 with transfusion(s)? Specify any problems Hx of Preganancy in last 3 N/A 03/20/24 09:14 Months Nurse Filling Out Transfusion DSCHRIBER 03/20/24 09:14 & Questions: Date: 03/20/24 03/20/24 09:14 Time: 09:16 03/20/24 09:14 Patient unable to answer at this time (ie. confused, unrespo /Reproduction History /Reproductive History - engineering operations leader: /Reproductive Hx- engineering operations leader Hx Now No 03/20/24 09:14 Gestational Age (in weeks): EDC: Hx Hx Para Hx Section SAB No 03/20/24 09:14 Active Medications Active Medications: Current Medications Generic Name Dose Route Start Last Admin Trade Name Freq PRN Reason Stop Dose Admin Acetaminophen 1,000 mg 04/03/24 13:25 Acetaminophen 500 Mg Tablet PO 04/03/24 13:26 X1 ONE Tranexamic Acid 1,000 mg/ 110 mls @ 660 mls/hr 04/03/24 13:25 Sodium Chloride IV 04/03/24 13:34 X1 ONE Tranexamic Acid 1,000 mg/ 110 mls @ 660 mls/hr 04/03/24 14:00 Sodium Chloride IV 04/03/24 14:09 X1 ONE Cefazolin Sodium 2 gm/ N/A 20 mls @ 400 mls/hr 04/03/24 13:25 IV 04/03/24 13:27 PREOP ONE Magnesium Sulfate 1 gm/ 102 mls @ 408 mls/hr 04/03/24 13:25 Dextrose IV 04/03/24 13:39 X1 ONE Lactated Ringer's 1,000 mls @ 15 mls/hr 04/03/24 11:45 IV 04/06/24 06:24 .Q48H HEATHER Protocol Insulin Human Lispro 1 - 6 unit 04/03/24 13:25 Insulin Lispro 100 Unit/Ml Insuln.Pen SC 04/03/24 19:30 Q4H PRN PRN BG>/= 180, SEE PROTOCOL Protocol PFSH Medical History History of steroid therapy Arthritis Back pain Numbness and tingling History of pain when walking Hypertension History of echocardiogram History of stress test Fatigue Family history of coronary artery disease Wears glasses Wears contact lenses Alcohol use Prostate disease History of renal disease High cholesterol Smoker CPAP (continuous positive airway pressure) dependence Cardiology follow-up encounter Hypertriglyceridemia GERD (gastroesophageal reflux disease) TATE on CPAP BPH (benign prostatic hyperplasia) Stage III chronic kidney disease Home Medications ?Medication ?Instructions ?Recorded ?Last Taken ?Type fenofibrate 160 mg tablet 160 mg PO DAILY 10/11/19 Unknown History acetaminophen 650 mg 1,300 mg PO DAILY 03/20/24 Unknown History tablet,extended release (Tylenol Arthritis Pain) amlodipine 5 mg tablet 5 mg PO DAILY 03/20/24 04/03/24 History ibuprofen 200 mg tablet 200 mg PO DAILY 03/20/24 Unknown History Allergy/AdvReac Type Severity Reaction Status Date / Time NSAIDS (Non-Steroidal AdvReac STAGE 3 Verified 04/03/24 11:55 Anti-Inflamma KIDNEY DISEASE Family History Father Atrial fibrillation Cardiac pacemaker in situ Grandfather CAD (coronary artery disease) Myocardial infarction, Onset Age: 55 Surgical History Hx of neck surgery History of transurethral resection of prostate History of back surgery History of cholecystectomy Social History household members: spouse Smoking Status: Current some day smoker tobacco type: cigars alcohol intake: current alcohol intake frequency: 0-2 drinks per day Alcohol type: wine substance use type: does not use caffeine: Yes Type: coffee Number of servings: 2 Review of Systems (Anesthesia) ROS Narrative System reviewed and no additional complaints, except as documented.
--- NOTE | 2024-04-03 12:10 | HP.PCM_ITS ---
History and Physical MR#: [id number] Acct: [id number] Name: STEVE CLAUDIO Rep #: [id number] : 1960 Provider: Dr. Pascual Davenport MD Age/Sex: 64/M Location: [facility] [place] Status: Signed Intake Vital Signs 02/28/2414:53 Height 5 ft 11 in Weight: 180 lb 2 oz BMI 25.1 Intake Visit Reasons: lumbar spine Accompanied by: Self Is patient in pain?: Yes Pain scale (1-10): 7 Allergies NSAIDS (Non-Steroidal Anti-Inflamma Adverse Reaction (Verified 03/28/24 14:25) STAGE 3 KIDNEY DISEASE Medications ?Medication ?Instructions ?Recorded ?Confirmed ?Type fenofibrate 160 mg tablet 160 mg PO DAILY 10/11/19 03/28/24 History acetaminophen 650 mg 1,300 mg PO DAILY 03/20/24 03/28/24 History tablet,extended release (Tylenol Arthritis Pain) amlodipine 5 mg tablet 5 mg PO DAILY 03/20/24 03/28/24 History ibuprofen 200 mg tablet 200 mg PO DAILY 03/20/24 03/28/24 History PFSH Medical History History of steroid therapy Arthritis Back pain Numbness and tingling History of pain when walking Hypertension History of echocardiogram History of stress test Fatigue Family history of coronary artery disease Wears glasses Wears contact lenses Alcohol use Prostate disease History of renal disease High cholesterol Smoker CPAP (continuous positive airway pressure) dependence Cardiology follow-up encounter Hypertriglyceridemia GERD (gastroesophageal reflux disease) TATE on CPAP BPH (benign prostatic hyperplasia) Stage III chronic kidney disease Surgical History Hx of neck surgery History of transurethral resection of prostate History of back surgery History of cholecystectomy Family History Father Atrial fibrillation Cardiac pacemaker in situGrandfather CAD (coronary artery disease) Myocardial infarction, Onset Age: 55 Social History household members: spouse Smoking Status: Current some day smoker tobacco type: cigars alcohol intake: current alcohol intake frequency: 0-2 drinks per day Alcohol type: wine substance use type: does not use caffeine: Yes Type: coffee Number of servings: 2 HPI lumbar spine Details: This documentation accurately reflects the service provided and the decisions made by me, Dr. Pascual Davenport MD 03/28/24 [id number]. Part of today?s visit was documented by Nancy TURNER , acting as scribe. STEVE CLAUDIO is a 64 year old M here today for Left Extraforaminal discectomy L4-5 d.o.s. 04/03/2024. Patient signed consent and received his drinks and soap. 03/01/24: STEVE CLAUDIO is a 64 year old M here today NEW patient referral from Dr Rene for low back pain. He states that 3 months ago he woke up and had pain. He states that 12 years ago he did have a lumbar laminectomy that was done by Dr. Ayala at [facility] but he is now retired. He has been seeing Dr Rene for 6 weeks and has had 2 injection which takes the edge off but doesn't completely relieve the pain. He had a lumbar epidural steroid L5-S1 injection. He does have radiating pain down his left buttock then into his left lateral calf to his willis and foot that goes to his little toes. He did do physical therapy 3 months ago which made the pain worse. Says that his pain has worsened in the 3 months. His PCP tried steroids which didn't help and also gave him gabapentin but he doesn't take it. He does have stage 3 kidney disease so he take Tylenol arthritis. He states that longer he walks the worse the pain gets. His pain is now affecting his ADLs such as putting his shoes and socks on or getting dressed. He notes even sneezing send his pain through the roof. He did have a recent MRI on 01/15/24 from an outside facility. Ortho Exam General General: Yes no acute distress Neurologic: Yes alert and Yes oriented x3 Spine SPINE TESTING CERVICAL THORACIC LUMBAR Musculoskeletal Strength 0=absent - 5=normal Details: Neurological exam of the lower extremities shows 5x5 power. Physical examination movements exacerbated pain. Antalgic when going from sitting to standing. Normal sensations across all dermatomes. No hyperreflexia. No clonus. No midline or paraspinal tenderness. Passive straight leg raise test is positive on the left. Coding Level of Care Code Off vis,est,level 4 Diagnoses Lumbar disc herniation with radiculopathy M51.16 Time Spent (min) 35 Assessment and Plan Assessment and Plan (1) Lumbar disc herniation with radiculopathy: Status: Acute Plan Again reviewed imaging today with the patient and reviewed MRI from 01/15/24. Imaging shows multilevel disc height loss with it most severe at L5-S1, a slight retrolisthesis at L4 on L5. MRI showed postsurgical changes of right laminotomy at L5-S1 from the past. There is a disc herniation at L4-L5 which is predominantly foraminal extraforaminal on the left. No dynamic instability on flexion-extension views. Again discussed imaging findings in detail. Patient has new onset 3-month history of severe radiculopathy in the left lower extremity which is not improving with physical therapy and epidural injections. Discussed options today which includes more injections from pain management, more physical therapy, or surgery. Given that he has tried PT and injections with no benefit and because he has had progressively worsening pain that is decreasing his quality of life and making it difficult to do activities of daily living, he wishes to discuss surgical options. Discussed surgical options inclu ding decompression alone versus decompression and fusion. Considering that majority of his symptoms are radicular, I recommend L4-5 extraforaminal discectomy on the left. BENEFITS and alternatives were discussed in detail with the risks include but are not limited to infection, bleeding, hematoma formation, injury to nerves and vessels, nerve injury, foot drop, persistent pain, persistent radiculopathy, persistent weakness and numbness, need for further surgery, need for fusion in the future, recurrent disc herniation, DVT, pulm embolism, cardiopulmonary event. Patient understands and agrees to proceed with surgery. Consent was signed.
[2024-04-03] MEDS: Magnesium 1 GM over 15 mins IV (12:18)
[2024-04-03] MEDS: Acetaminophen 500 MG Tablet 1000 MG PO (12:18)
[2024-04-03] MEDS: Lactated Ringers 1,000 ML 15 ML IV ×2 (12:18→16:21)
[2024-04-03 12:52] LABS: Bedside Glucose 104 mg/dL (74-106)
[2024-04-03] MEDS: Cefazolin 2 GM in Syringe IV (13:35)
[2024-04-03] MEDS: TXA 1000mg in NS100 100ml (IVPB at Incision) 660 MG IV (13:42)
--- NOTE | 2024-04-03 13:42 | RAD_ITS ---
STUDY: X-RAY - LUMBAR SPINE REASON FOR EXAM: Male, 64 years old. LT EXTRAFORAMINAL DISCECTOMY L4-5, ENDOSCOPIC TECHNIQUE: 4 fluoroscopic spot view(s) of the lumbar spine were obtained. 4 fluoroscopic spot films. 25.66 mgy COMPARISON: Lumbar spine radiograph February 29, 2024 FINDINGS: 4 fluoroscopic spot films demonstrate a metallic probe placement at L4-5 laterally. RAD/Lumbar Spine 2 or 3 Views IMPRESSION: Please correlate with clinical service Electronically Signed: Aries Ewing MD at 0:00 EST ,
[2024-04-03] MEDS: TXA 1000mg in NS100 100ml (IVPB at Closure) 660 MG IV (15:24)
[2024-04-03] MEDS: Triamcinolone Acetonide 40 MG/ML Vial (15:27)
[2024-04-03] MEDS: Bupiv/Epi 0.25% 30 ML Vial (15:27)
--- NOTE | 2024-04-03 15:37 | PCM.OPRPT ---
Operative Report (Standard) Operative Information Surgery/Procedure Performed: L4-5 left extraforaminal discectomy and decompression Surgeon: Pascual Davenport Date of Procedure: 04/03/24 Procedure Start Time: 14:04 Procedure Stop Time: 15:45 Pre-Operative Diagnosis: L4-5 left foraminal disc herniation Post-Operative Diagnosis: Same Select all DRAINS/GRAFTS/IMPLANTS that apply: None Type of Anesthesia: General Estimated Blood Loss: 5 cc Specimen collected: No Description of surgery: Preoperative diagnosis: L4-5 left foraminal disc herniation Postoperative diagnosis: Same Name of procedure: L4-5 left extraforaminal discectomy, foraminal decompression CPT 07119 Attending Surgeon: Dr. Pascual Davenport Estimated blood loss: 5 mL Anesthesia: General Indications: Patient is a 64-year-old gentleman who presented with low back pain and severe left lower extremity radiation. Imaging showed prior L5-S1 right laminotomy surgical changes, L4-5 disc degeneration with left foraminal disc herniation and stenosis. All options of treatment were discussed which included continued nonoperative treatment measures like rest physical therapy, injections. After failing a prolonged nonsurgical treatment, patient requested surgical intervention for discectomy. All risks and benefits associated with the procedure were explained to the patient. The risks include but are not limited to infection, bleeding, injury to nerves and vessels, persistent paresthesia, incidental dural tear, recurrent disc herniation, spinal instability and need for fusion or other procedures in future, persistent pain, persistent weakness and numbness, etc. Procedure: The patient was identified in the preoperative holding suite using Unique patient identifiers. Skin was marked, consent was reviewed, and all questions were answered. The patient was then brought back to the operative room. A surgical timeout was performed to make sure correct procedure was being done on the correct patient and all operative room staff were on the same page. General endotracheal anesthesia was then given to the patient. The patient was then turned prone onto a Travis table over a Talat frame. The back was prepped and draped in usual fashion. Preoperative antibiotic was injected IV. A final timeout was then again done just before starting the procedure. C-arm AP view was utilized to identify and the plane of the L4-5 disc. Skin markers were utilized to michele the midline, lateral pedicle line and line joining superior ipsilateral pedicle and inferior contralateral pedicle border. A lateral view was then taken to identify the depth of the L4-5 disc and this was measured and the incision was marked on the oblique pedicle line with the same distance from the midline. Long spinal needle was then introduced in an oblique direction going towards the left L4-5 facet joint. AP view confirmed the tip just lateral to the superior tickler process near the superior border of the left L5 pedicle. This was confirmed on lateral view to be in the foramen right above the L5 pedicle. A transverse incision was taken in this paramedian direction using the spinal needle. Guidewire was placed through the cannula of the spinal needle. Tubular retractors with serial tubular dilators were used using the C-arm AP view to dock onto the junction of the superior border of TP and lateral border of superior articular process of L5. Under direct light based visualization, soft tissues were removed with pituitary, bipolar was used to obtain hemostasis and the L4-5 disc was exposed and the Kambin Lima. A bur was utilized to remove a portion of the lateral superior articular process of L3. Kerrison rongeur was utilized to undercut the SAP from the lateral aspect. The left L5 pedicle was palpated. Disc space was confirmed on the C arm. This is a punch was utilized to make an annulotomy. Small pituitary was used to remove any loose fragments from the disc space. A ball-tipped probe was then utilized to remove the extruded fragments in the foramen. The fragments came out piecemeal. Adequate foraminotomy was then performed using Kerrison rongeurs undercutting the SAP. The ball-tipped probe was then used to probe in all directions to tease out more disc fragments. Further loose disc fragments from the disc space were also removed with help of pituitary. once adequate decompression was obtained by removal of all loose disc fragments including the ones that were extruded, 40 mg Kenalog was then injected in the foramen which is wide open and in communication with the lateral recess and extraforaminal area. The tubular cannula was then removed. Marcaine with epinephrine was injected along the path of the cannula. Closure was done in layers, 2-0 Vicryl for subcutaneous tissue, and 4-0 Monocryl for the skin. The skin closure was augmented with Dermabond. 2 x 2 gauze was then placed over the wound covered with Tegaderm. The patient was then turned supine onto a hospital bed. The patient was extubated and taken to PACU in stable condition. The patient tolerated the procedure well and no complications occurred. No instrumentation was utilized in this case. No dural tear occurred in this case. I was present for the entirety of the case and performed the surgery myself. 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
--- NOTE | 2024-04-03 16:45 | PCM.POST.ANE ---
Anesthesia: Postop Eval I Current Vital Signs Temperature: 98.6 F Pulse Rate: 77 Blood Pressure: 134/87 Respiratory Rate: 19 Pulse Ox: 99 Assessment Airway patent: Yes Spontaneous unlabored respirations: Yes nausea: No Vomiting: No Anesthesia Complication: No Fluid Hydration Crystalloid volume administer (ml): 800 Total IV fluid infused: 800 Progress Note Anesthesia document: Postop Eval 1 completed: Yes
--- NOTE | 2024-04-03 17:11 | PCM.POSTANE2 ---
Anesthesia Postop Eval I Sum Anesthesia Postop Eval I Summary Anesthesia Postop Eval I Summary: Anesthesia Postop Eval I: Assessment Summary Airway patent Spontaneous unlabored respirations Mental status nausea Vomiting Anesthesia Postop Eval I: Fluid Summary Crystalloid volume administer (ml) Colloids volume administered ( ml) Blood Product volume administered (ml) Total IV fluid infused Anesthesia Postop Eval I: Summary Notes Anesthesia Complication Anesthesia Complication Comment: Post-operative progress note Anesthesia: Postop Eval II Evaluation Mental status: Awake and Calm Pain Level: 2 nausea: No Vomiting: No Progress Note Post-operative progress note: Nausea treated in PACU with Benedryl/Reglan Complications Anesthesia Complication: No
[2024-04-04 08:08] VITALS: BP 134/87; PULSE 77; RESP 19; TEMP 37; O2SAT 99
== END 2024-04-03 17:51 | disposition home or self-care (01) ==
LOC: SDC 11:26 → AC 11:27
PROVIDERS: Anesthesiology; PCP Family Medicine; Referring Provider Orthopaedic Surgery Orthopaedic Surgery of the Spine; Visit Provider Orthopaedic Surgery Orthopaedic Surgery of the Spine
PROC: 0SB24ZZ Excision of Lumbar Vertebral Disc, Percutaneous Endoscopic Approach (ICD-10-PCS; CPT 62287; principal; 2024-04-03 13:10)
DX: M51.16 Intervertebral disc disorders with radiculopathy, lumbar region (principal); N18.30 Chronic kidney disease, stage 3 unspecified; I12.9 Hypertensive chronic kidney disease with stage 1 through stage 4 chronic kidney disease, or unspecified chronic kidney disease; E78.00 Pure hypercholesterolemia, unspecified; Z79.899 Other long term (current) drug therapy; N40.0 Benign prostatic hyperplasia without lower urinary tract symptoms; G47.33 Obstructive sleep apnea (adult) (pediatric); K21.9 Gastro-esophageal reflux disease without esophagitis; F17.290 Nicotine dependence, other tobacco product, uncomplicated
CPT/HCPCS: 63056; 00670; 36415; 72100; 76000; 80048; 82962; 83735; 85025; 86703; 86706; 86708; 86803; 86850; 86900; 86901; 87081; 93005; J7120; J2405; J3475

== ENCOUNTER → 2024-04-19 | Outpatient (CLI) | payer OTHER, SELFPAY ==
--- NOTE | 2024-04-19 11:04 | MRI_ITS ---
EXAM: MR LUMBAR SPINE WITHOUT INTRAVENOUS CONTRAST CLINICAL INDICATION: pain --persistent Lumbar Radiculopathy L5-S1, discectomy 2 weeks ago, no relief TECHNIQUE: Multiplanar and multisequence MR images of the lumbar spine without intravenous contrast. COMPARISON: MR Lumbar Spine dated 01/15/2024 FINDINGS: VERTEBRAE: Alignment of the lumbar vertebral bodies is normal. Normal vertebral body height. No bone marrow edema. SPINAL CORD: Normal. Normal position and signal intensity of the conus medullaris. SOFT TISSUES: Normal. DISCS/SPINAL CANAL/NEURAL FORAMINA: L1-L2: Normal. Normal disc height and morphology. Normal spinal canal and lateral recesses. Normal neuroforamina. L2-L3: Normal. Normal disc height and morphology. Normal spinal canal and lateral recesses. Normal neuroforamina. L3-L4: Normal. Normal disc height and morphology. Normal spinal canal and lateral recesses. Normal neuroforamina. L4-L5: Mild disc space narrowing at L4-5 unchanged from prior exam. Left posterolateral disc protrusion and facet arthropathy result in narrowing of the left lateral recess and left neural foramen. Mild spinal stenosis. L5-S1: Moderate disc space narrowing associated with Modic type II endplate changes. No disc protrusion. No spinal stenosis. Prominent narrowing of the right neural foramen related to vertebral body hypertrophy and facet arthropathy. Intact left neural foramen. MRI/Spine Lumbar (Routine) IMPRESSION: 1. Narrowing of the left L4-5 lateral recess and neural foramen related to the left sided disc protrusion. 2. Prominent narrowing of the right L5-S1 neural foramen secondary to bony hypertrophy. Electronically Signed: Charles Olivares MD at 16:56 EST ,
== END | disposition home or self-care (01) ==
LOC: MRI 10:50
PROVIDERS: PCP Family Medicine; Referring Provider Orthopaedic Surgery Orthopaedic Surgery of the Spine; Visit Provider Orthopaedic Surgery Orthopaedic Surgery of the Spine
DX: Z98.890 Other specified postprocedural states (principal); M54.16 Radiculopathy, lumbar region
CPT/HCPCS: 72148

== ENCOUNTER → 2024-08-03 | Outpatient (CLI) | payer OTHER, SELFPAY ==
[2024-08-03 08:58] LABS: Hemoglobin A1c 5.9 % (<=5.6)
[2024-08-03 09:07] LABS: ALB/GLOB Ratio 1.5 RATIO (0.9-2.4); AST(SGOT) 37 U/L (<=37); Alanine Aminotransfer ALT/SGPT 33 U/L (<=46); Albumin, Serum 4.6 g/dL (3.4-4.8); Alkaline Phosphatase 63 U/L (40-129); Anion Gap 12 (5-15); BUN 28 mg/dL (4-19); BUN/Creat Ratio 21.2 RATIO (10-20); Calcium,Total 9.9 mg/dL (7.6-11.0); Carbon Dioxide 24.3 mmol/L (21.0-32.0); Chloride 105 mmol/L (98-108); Cholesterol 202 mg/dL (<=200); Creatinine, Serum 1.34 mg/dL (0.70-1.20); EST Glomerular Filtration Rate 60 (>60); Glucose 107 mg/dL (70-99); High Density Lipoprotein 63 mg/dL; Low Density Lipoprotein Calc. 125 mg/dL; Potassium 4.2 mmol/L (3.3-5.1); Protein, Total 7.6 g/dL (5.9-8.4); Sodium Level 141 mmol/L (133-145); Total Bilirubin 0.64 mg/dL (0.00-1.30); Triglycerides 72 mg/dL; Very Low Density Lipoprotein 14 mg/dL (5-40); cholesterol:hdl ratio screen 3.23
== END | disposition home or self-care (01) ==
LOC: LAB 07:55
PROVIDERS: PCP Family Medicine; Referring Provider Family Medicine; Visit Provider Family Medicine
DX: Z00.00 Encounter for general adult medical examination without abnormal findings (principal); Z12.5 Encounter for screening for malignant neoplasm of prostate; R73.01 Impaired fasting glucose
CPT/HCPCS: 36415; 80053; 80061; 83036; 84153; G0103

== ENCOUNTER 2024-12-19 06:06 | Day surgery (SDC) | payer OTHER, SELFPAY ==
--- NOTE | 2024-12-16 09:40 | PAT.ANE_ITS ---
Pre-Assessment Diagnosis/Proposed Procedure Planned Operative Procedure(s): COLONOSCOPY Anesthesia History Anesthesia History - occupational health professional: Anesthesia History - occupational health professional Hx Hospitalization No 12/16/24 09:34 Any Problems With Anesthesia Yes: SLOW TO AWAKEN 12/16/24 09:34 Cholinesterase deficiency No 12/16/24 09:34 You/Your Family Experience No 12/16/24 09:34 fever (hyperthermia) with Relationship Recent Exposure to Contagious No 04/03/24 12:01 Disease Does patient have nerve No 12/16/24 09:34 stimulator Patient instructed to have device shut off --Does patient have Pacemaker or ICD? When Was Last Pacemaker Check QUESTION #4 FULL TEXT: You/Your Family Experience fever (hyperthermia) with Anesthesia Last Oral Intake Last Oral intake: Last Oral Intake NPO since Meds taken in AM with sips of water? Meds patient instructed to take am of surgery PONV PONV - occupational health professional: PONV - occupational health professional Female No 12/16/24 09:34 HX of Motion Sickness No 12/16/24 09:34 HX of N/V After Surgery No 12/16/24 09:34 Non-Smoker Yes 12/16/24 09:34 Duration of Surgery greater No 12/16/24 09:34 than 60 minutes Number of Risk Factors 1 12/16/24 09:34 PONV Score Low Risk 12/16/24 09:34 Height & Weight Height & Weight: Anesthesia: Height & Weight Height 5 ft 11 in 10/24/24 14:31 Respiratory Assessment Respiratory Assessment - occupational health professional: Respiratory Tract Infection Hx - occupational health professional Hx Respiratory Tract Infection No 12/16/24 09:34 STOP Sleep Apnea STOP Sleep Apnea - occupational health professional: STOP Sleep Apnea - occupational health professional Hx Hypertension Yes: CONTROLLED ON MED 12/16/24 09:34 Hx Sleep Apnea Yes 12/16/24 09:34 CPAP Yes: NONCOMPLIANT 12/16/24 09:34 BIPAP No 12/16/24 09:34 Do you snore loudly (louder than talking or can be heard Do you often feel tired/ fatigued/ sleepy during daytime? Has anyone observed you stop breathing during sleep? STOP Results Positive 12/16/24 09:34 QUESTION #5 FULL TEXT : Do you snore loudly (louder than talking or can be heard through closed doors)? 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 Specify any problems Hx of Preganancy in last 3 N/A 12/16/24 09:34 Months Nurse Filling Out Transfusion VCHRISTIN 12/16/24 09:34 & Questions: Date: 12/16/24 12/16/24 09:34 Time: 09:35 12/16/24 09:34 Patient unable to answer at this time (ie. confused, unrespo /Reproduction History /Reproductive History - occupational health professional: /Reproductive Hx- occupational health professional Hx Now No 12/16/24 09:34 Gestational Age (in weeks): EDC: Hx Hx Para Hx Section SAB No 12/16/24 09:34 [facility] Medical History (Updated 12/16/24 @ 09:37 by Zehra Hyman) History of steroid therapy Arthritis Back pain Numbness and tingling History of pain when walking Hypertension History of echocardiogram History of stress test Fatigue Family history of coronary artery disease Wears glasses Wears contact lenses Alcohol use Prostate disease History of renal disease High cholesterol Smoker CPAP (continuous positive airway pressure) dependence Cardiology follow-up encounter Hypertriglyceridemia GERD (gastroesophageal reflux disease) TATE on CPAP BPH (benign prostatic hyperplasia) Stage III chronic kidney disease Home Medications ?Medication ?Instructions ?Recorded ?Last Taken ?Type fenofibrate 160 mg tablet 160 mg PO DAILY 10/11/19 Unk nown History amlodipine 5 mg tablet 5 mg PO DAILY 03/20/2404/03 History multivitamin 1 tab PO QDAY 10/24/24 Unkno wn History sod picosulf 10 mg-magnes 3.5 175 ml PO .COMPLEX 1 dos e #350 mL 10/24/24 Unknown Rx gram-citric 12 gram/175 mL oral solution (Clenpiq) Allergy/AdvReac Type Severity Reaction Status Date / Time gabapentin AdvReac Other Verified 12/16/24 09:30 NSAIDS (Non-Steroidal AdvReac STAGE 3 Verified 12/16/24 09:30 Anti-Inflamma KIDNEY DISEASE Family History Father Atrial fibrillation Cardiac pacemaker in situ Grandfather CAD (coronary artery disease) Myocardial infarction, Onset Age: 55 Surgical History (Updated 12/16/24 @ 09:34 by Zehra Hyman) History of back surgery Hx of microdiscectomy Hx of neck surgery History of transurethral resection of prostate History of back surgery History of cholecystectomy Social History household members: spouse Smoking Status: Current some day smoker tobacco type: cigars alcohol intake: current alcohol intake frequency: 0-2 drinks per day Alcohol type: wine substance use type: does not use caffeine: Yes Type: coffee Number of servings: 2 Audit: Pertinent Findings Pertinent Findings EKG Perinent findings: 03/21/2024. Normal sinus rhythm 62 bpm. Stress test pertinent findings: 06/17/2021. Negative. Echo (EF%) pertinent findings: 05/04/2021. EF 65%. Pulmonary artery pressure 20. Consult pertinent findings: Cardiology 04/22/2021. Family history of coronary artery disease. Check stress test and echocardiogram. Recommendation Anesthesia Recommendation Anesthesia recommendation: OPTIMIZED for anesthesia
--- OUTSIDE RECORDS SUMMARY | 2024-12-19 06:10 | XMS RPT_ITS | CCD ---
Author Organization [facility] Care Team Providers Care Aboriginal Education Worker Coordinator Name Role Phone KAIT SAM Unavailable Unavailable KAIT ASM Unavailable Unavailable JENNIFER HOFFMAN Unavailable Unavailable Jennifer Hoffman Primary Care Provider [phone] JENNIFER HOFFMAN DO Primary Care Physician ABRAHAM , DR JEFF Spann Primary Care Physician ROSELINE RIVAS Attending Un available ABRAHAM DO, DR JEFF Spann Primary Care Unavailabl e ABRAHAM DO, DR JEFF Spann Attending Unavailabl e ABRAHAM DO, DR JEFF Spann Primary Care Unavailabl e ABRAHAM DO, DR JEFF Spann Attending Unavailabl e ABRAHAM DO, DR JEFF Spann Primary Care Unavailabl e ABRAHAM DO, DR JEFF Spann Attending Unavailabl e ABRAHAM DO, DR JEFF Spann Primary Care Unavailabl e ROSELINE RIVAS Attending Un available ABRAHAM DO, DR JEFF Spann Primary Care Unavailabl e Jennifer Hoffman DO Primary Care Provider DIPAK ALBERTO Attending Unavailable JENNIFER HOFFMAN Primary Care Unavailable BONYN HERMOSILLO Referring Unavailable LALO COVARRUBIAS Referring Unavailable JENNIFER HOFFMAN Primary Care Unavailable Jeff Rosario MD Primary Care Provider [phone] Abraham , Dr. Obregon Primary Care Provider Abraham GRANADO, Dr. Obregon Referring Provider Issac MORGAN, Dr. Garner Attending Provider [phone] Dr. Pascual Davenport MD Referring Provider Abraham GRANADO, Dr. Obregon Attending Provider [phone] SELF, SELF Referring Unavailable ABRAHAM, JEFF Primary Care Unavailable MEYER, ROSELINE Attending Unavailable ABRAHAM, JEFF Primary Care Unavailable MEYER, ROSELINE Attending Unavailable MEYER, ROSELINE Admitting Unavailable SELF, SELF Referring Unavailable ABRAHAM, JEFF Primary Care Unavailable MEYER, ROSELINE Attending Unavailable ABRAHAM, JEFF Primary Care Unavailable MEYER, ROSELINE Attending Unavailable MEYER, ROSELINE Referring Unavailable SELF, SELF Referring Unavailable BELULAURA Attending Unavailable ABRAHAM, JEFF Primary Care Unavailable ABRAHAM, JEFF Primary Care Unavailable ABRAHAM, JEFF Referring Unavailable MEYER, ROSELINE Attending Unavailable MEYER, ROSELINE Referring Unavailable JEF, MADI B Attending Unavailable ABRAHAM, JEFF Primary Care Unavailable JEF, MADI B Attending Unavailable MEYER, ROSELINE Referring Unavailable ABRAHAM, JEFF Primary Care Unavailable ABRAHAM DO, DR JEFF Spann Primary Care Unavailabl e ABRAHAM DO, DR JEFF Spann Attending Unavailabl e BELU, AIR TRAFFIC SUPERVISOR-CENA LAURA Attending Unavaila ble ABRAHAM DO, DR JEFF Spann Primary Care Unavailabl e JUAN DO, HILARY Emery Attending Unavailable ABRAHAM DO, DR JEFF Spann Primary Care Unavailabl e ABRAHAM DO, DR JEFF Spann Primary Care Unavailabl e ABRAHAM DO, DR JEFF Spann Attending Unavailabl e Abraham DO, Dr. Obregon Primary Care Provider Abraham DO, Dr. Obregon Referring Provider Johnson SEXUAL ABUSE COUNSELLOR-CLaura Attending Provider Abraham, Jeff Primary Care Unavailable Yenni Correa Attending Unavailable Abraham, Jeff Referring Unavailable Abraham, Jeff Primary Care Unavailable Abraham, Jeff Attending Unavailable Abraham, Jeff Primary Care Unavailable Sunny Yenni Referring Unavailable SunnyYenni Attending Unavailable Abraham, Jeff Primary Care Unavailable Davenport, Pascual Referring Unavailable Davenport, Pascual Attending Unavailable Abraham, Jeff Primary Care Unavailable Abraham, Jeff Referring Unavailable Bernadette, Felisa Attending Unavailable Davenport, Pascual Consulting Unavailable Abraham, Jeff Primary Care Unavailable Davenport, Pascual Referring Unavailable Davenport, Pascual Attending Unavailable Abraham, Jeff Primary Care Unavailable Kody, Ricky Attending Unavailable Abraham, Jeff Primary Care Unavailable Abraham, Jeff Referring Unavailable Davenport, Pascual Attending Unavailable Abraham, Jeff Primary Care Unavailable Abraham, Jeff Referring Unavailable Davenport, Pascual Attending Unavailable Abraham, Jeff Primary Care Unavailable Abraham, Jeff Referring Unavailable Davenport, Pascual Attending Unavailable Abraham, Jeff Primary Care Unavailable Abraham, Jeff Referring Unavailable JohnsonKaylee traylorfer Attending Unavailable Abraham, Jeff Primary Care Unavailable Abraham, Jeff Referring Unavailable Davenport, Pascual Attending Unavailable Abraham, Jeff Primary Care Unavailable Davenport, Pascual Referring Unavailable Kody, [place] Attending Unavailable Davenport, Pascual Referring Unavailable Abraham, Jeff Primary Care Unavailable Davenport, Pascual Attending Unavailable Abraham, Jeff Referring Unavailable Abraham, Jeff Primary Care Unavailable Friend, Chris Attending Unavailable Allergies Allergy Classification Reported Allergen(s) Allergy Type Date of Onset Reaction(s) Facility (13 sources) Ibuprofen; Translations: [IBUPROFEN] Drug Allergy 09-27-19 Other: See Comments [place], [place] (14 sources) Chlorpheniramine / Pseudoephedrine; Translations: [chlorpheniramine-p seudoephedrine] Drug Allergy 12-18-19 Swollen prostate (finding), Other: See Comments [facility] (15 sources) NSAIDs; Translations: [NSAIDs] Drug allergy 05-10-20 kidney disease [facility] (4 sources) Nonsteroidal Anti-inflammatory Compounds Propensity to adverse reactions 04-22-20 STAGE 3 KIDNEY DISEASE [facility] (5 sources) Non-steroidal anti-inflammatory agent; Translations: [NSAIDS (NON-STEROIDAL ANTI-INFLAMMATORY DRUG)] Drug Allergy 10-11-19 Other: See Comments [facility] (1 source) CHLORPHENIRAMINE-PS EUDOEPHED; Translations: [CHLORPHENIRAMINE-P SEUDOEPHED] Propensity to adverse reactions to drug (disorder) 12-18-19 [facility] (7 sources) gabapentin Drug Allergy 04-26-20 [facility] Work Phone: Comment on above: Made genitals bright red and burning sensation (1 source) gabapentin Drug Allergy 12-17-19 [facility] (1 source) NSAIDs Drug allergy (disorder) 12-17-19 [facility] Medications Current Medications Medication Drug Class(es) Dates Sig (Normalized) Sig (Original) acetaminophen 325 mg / oxyCODONE hydrochloride 5 mg oral tablet (4 sources) Opioid Agonist Start: 12-02-2014 take 1 tablet by mouth every four hours as needed oxyCODONE-acetam inophen (PERCOCET) 5-325 mg tablet Take 1 tablet by mouth every 4 hours as needed. 30 tablet 0 12/02/2014 Active amLODIPine 5 mg oral tablet (10 sources) Dihydropyridine Calcium Channel Cherie Start: 03-14-2024 take 1 tablet by mouth once daily Amlodipine 5 mg tablet Active 5 mg PO DAILY March 20, 2024 12:00am calcium chloride 0.0014 meq/ml / potassium chloride 0.004 meq/ml / sodium chloride 0.103 meq/ml / sodium lactate 0.028 meq/ml injectable solution (1 source) Start: 10-01-2019 lactated ringers infusion dicyclomine hydrochloride 20 mg oral tablet (4 sources) Anticholinergic Start: 11-11-2014 dicyclomine (BENTYL) 20 mg tablet 11/11/2014 Active 0.4 ml enoxaparin sodium 100 mg/ml prefilled syringe (1 source) Low Molecular Weight Heparin Start: 10-01-2019 enoxaparin (LOVENOX) injection 40 mg fenofibrate 160 mg oral tablet (20 sources) Peroxisome Proliferator Receptor alpha Agonist Start: 10-01-2019 take 1 tablet by mouth once daily Fenofibrate 160 MG tablet Active 160 mg PO DAILY October 11, 2019 12:00am lidocaine hydrochloride 0.02 mg/mg topical gel (2 sources) Antiarrhythmic, Amide Local Anesthetic Start: 11-09-2019 lidocaine (XYLOCAINE) 2 % uro-jet Start: 10-07-2019 Lidocaine HCl 2 % CREA Apply 1 Bottle topically 2 times daily as needed (apply to tip of penis twice daily as needed for pain) 118 mL 0 10/07/2019 Active Multiple Vitamins-Minerals (THERAPEUTIC MULTIVITAMIN-MINERALS) tablet (3 sources) take 1 tablet by mouth once daily Multiple Vitamins-Minerals (THERAPEUTIC MULTIVITAMIN-MINERALS) tablet Take 1 tablet by mouth daily 0 Active Multivitamin preparation (10 sources) Start: 12-01-19 take 1 tablet by mouth once daily Multivitamin Dose = 1 tab(s), Oral, Daily, 0 Refill(s) Start Date: 11/30/20 Status: Ordered Repeat number: 1 Start: 11-30-2020 take 1 tablet by tasha th once daily Multivitamin Dose = 1 tab(s), Oral, Daily, 0 Refill(s) Start Date: 11/30/20 Status: Ordered Multivitamin tablet (1 source) Start: 10-24-2024 Multivitamin t ablet Active 1 {tbl} PO daily October 24, 2024 12:00am omeprazole 40 mg delayed release oral capsule (4 sources) Proton Pump Inhibitor Start: 11-05-2014 Omeprazole 40 mg capsule 11/05/2014 Active 2 ml ondansetron 2 mg/ml injection (5 sources) Serotonin-3 Receptor Antagonist Start: 10-01-2019 ondansetron (ZOFRAN) injection 4 mg Start: 12-04-2014 take 1 tablet by tasah th every eight hours as needed ondansetron (ZOFRAN, HYDROCHLORIDE,) 4 mg tablet Take 1 tablet by mouth every 8 hours as needed. 20 tablet 0 12/04/2014 Active 24 hr oxybutynin chloride 5 mg extended release oral tablet (1 source) Cholinergic Muscarinic Antagonist Start: 10-15-2019 take 1 tablet by mouth once daily oxybutynin (DITROPAN-XL) 5 MG extended release tablet Indications: Bladder spasm Take 1 tablet by mouth daily for 7 days 7 tablet 0 10/15/2019 Active phenazopyridine hydrochloride 200 mg oral tablet (3 sources) Start: 10-02-2019 End: 10-05-2019 take 1 tablet by mouth three times daily as needed for pain phenazopyridine (PYRIDIUM) 200 MG tablet Take 1 tablet by mouth 3 times daily as needed for Pain 9 tablet 0 10/02/2019 10/05/2019 Active Start: 10-01-2019 phenazopyridin e (PYRIDIUM) tablet 100 mg polyethylene glycol 3350 [id number] mg powder for oral solution (1 source) Osmotic Laxative Start: 10-01-2019 polyethylene glycol (GLYCOLAX) packet 17 g silodosin 8 mg oral capsule (4 sources) alpha-Adrenergi c Cherie take 1 capsule by mouth once daily at dinner silodosin (RAPAFLO) 8 mg cap capsule Take by mouth daily with dinner. Active Sod Picosulf-Mag Ox-Citric Ac (1 source) Start: 10-24-2024 Sod Picosulf-M ag Ox-Citric Ac (Clenpiq) 10 mg-3.5 gram- 12 gram/175 mL solution Active 175 mL PO .COMPLEX 350 October 24, 2024 12:00am 175 mL orally; as directed for split dose bowel prep 3 ml sodium chloride 9 mg/ml injection (3 sources) Start: 10-01-2019 0.9 % sodium chloride infusion Start: 10-01-2019 sodium chlorid e flush 0.9 % injection 10 mL sodium chloride flush 0.9 % injection 3 mL (1 source) Start: 11-09-2019 sodium chloride flush 0.9 % injection 3 mL sulfamethoxazole 800 mg / trimethoprim 160 mg oral tablet (1 source) Dihydrofolate Reductase Inhibitor Antibacterial, Sulfonamide Antimicrobial Start: 10-29-2019 take 1 tablet by mouth twice daily sulfamethoxazole -trimethoprim (BACTRIM DS) 800-160 MG per tablet Indications: Benign prostatic hyperplasia with post-void dribbling Take 1 tablet by mouth 2 times daily 42 tablet 0 10/29/2019 Active therapeutic multivitamin-minerals tablet (5 sources) take 1 tablet by mouth once daily in the morning therapeutic multivitamin-min erals tablet Take 1 tablet by mouth daily every morning. Active take 1 tablet by mouth once marielle y therapeutic multivitamin-minerals tablet Take 1 tablet by mouth daily. Active tiZANidine 4 mg oral tablet (1 source) Central alpha-2 Adrenergic Agonist Start: 12-20-2023 tiZANidine 4 mg oral tablet Dose : 4 mg = 1 tab(s), Oral, qHS, # 10 tab(s), 1 Refill(s), Pharmacy: [facility]/pharmacy #[id number], Acute radicular low back pain, 180, cm, 12/20/23 13:17:00 EDT, Height, kg, 12/20/23 13:17:00 EDT, Dosing Weight Start Date: 12/20/23 Status: Ordered traMADol hydrochloride 50 mg oral tablet (4 sources) Opioid Agonist Start: 12-04-2014 take 1 tablet by mouth every four hours as needed traMADol (ULTRAM) 50 mg tablet Take 1 tablet by mouth every 4 hours as needed. 30 tablet 0 12/04/2014 Active Completed/Discontinued Medications Medication Drug Class(es) Dates Sig (Normalized) Sig (Original) acetaminophen 500 mg oral tablet (8 sources) Start: 06-14-2024 End: 06-27-2024 take 2 tablets by mouth every six hours as needed acetaminophen 500 MG tablet Take 2 tablets by mouth every 6 hours as needed for Mild Pain for up to 14 days. 112 tablet 06/14/2024 06/27/2024 Discontinued Start: 03-20-2024 End: 04-03-2024 Acetaminophen (Tylenol Arthr itis Pain) 650 mg tablet extended release Discontinued 1300 mg PO DAILY March 20, 2024 12:00am April 03, 2024 4:46pm Start: 10-01-2019 acetaminophen (TYLENOL) tablet 650 mg Start: 10-01-2019 End: 10-01-2019 acetaminophen (TYLENOL) tabl et 1,000 mg Start: 06-19-2019 acetaminophen (TYLENOL) 500 mg tablet 800 mg. 06/19/2019 Active take 2 tablets by mo uth once daily in the morning Acetaminophen (TYLENOL ARTHRITIS EXT RELIEF PO) Take 2 tablets by mouth daily every morning. Active acetaminophen 325 mg / HYDROcodone bitartrate 5 mg oral tablet (2 sources) Opioid Agonist Start: 04-03-2024 End: 04-16-2024 Hydrocodone-Acetaminophen 5-325 mg tablet Discontinued 1 {tbl} PO EVERY 6 HOURS as needed for pain 12 April 03, 2024 April 16, 2024 3:41pm ceFAZolin 2000 mg injection (1 source) Cephalosporin Antibacterial Start: 10-01-2019 End: 10-01-2019 ceFAZolin (ANCEF) 2 g in dextrose 4 % 100 mL IVPB (premix) ciprofloxacin 500 mg oral tablet (4 sources) Quinolone Antimicrobial Start: 04-14-2021 End: 04-22-2021 take 1 tablet by mouth twice daily Ciprofloxacin Hcl 500 mg tablet Discontinued 500 mg PO TWICE A DAY April 14, 2021 1:00am April 22, 2021 4:06pm cyclobenzaprine hydrochloride 5 mg oral tablet (1 source) Muscle Relaxant Start: 06-14-2024 End: 06-27-2024 take 1 tablet by mouth three times daily as needed for muscle spasms Cyclobenzaprine 5 MG tablet Take 1 tablet by mouth 3 times daily as needed for Muscle spasms for up to 7 days. 20 tablet 06/14/2024 06/27/2024 Discontinued dutasteride 0.5 mg oral capsule (8 sources) 5-alpha Reductase Inhibitor Start: 04-13-2021 End: 04-22-2021 take 1 capsule by mouth once daily Dutasteride 0.5 mg Capsule Discontinued 0.5 mg PO DAILY April 14, 2021 1:00am April 22, 2021 4:06pm famotidine 20 mg oral tablet (1 source) Histamine-2 Receptor Antagonist Start: 10-01-2019 End: 10-01-2019 famotidine (PEPCID) tablet 20 mg Start: 10-01-2019 End: 10-01-2019 famotidine (PEPCID) tablet 2 0 mg gabapentin 300 mg oral capsule (3 sources) Anti-epileptic Agent Start: 04-16-2024 End: 10-24-2024 take 1 capsule by mouth at bedtime Gabapentin 300 mg capsule Discontinued 300 mg PO AT BEDTIME April 16, 2024 1:00am October 24, 2024 2:29pm Start: 10-01-2019 End: 10-01-2019 gabapentin (NEURONTIN) capsu le 300 mg 1 ml HYDROmorphone hydrochloride 1 mg/ml cartridge (1 source) Opioid Agonist Start: 10-01-2019 End: 10-01-2019 HYDROmorphone (DILAUDID) injection 0.5 mg ibuprofen 200 mg oral tablet (2 sources) Nonsteroidal Anti-inflammatory Drug Start: 03-20-2024 End: 10-24-2024 take 1 tablet by mouth once daily Ibuprofen 200 mg tablet Discontinued 200 mg PO DAILY March 20, 2024 12:00am October 24, 2024 2:29pm loratadine 10 mg oral tablet (4 sources) Start: 06-09-2023 End: 06-16-2023 Claritin 10 mg oral tablet Dose : 10 mg = 1 tab(s), Oral, qDay, # 7 tab(s), 0 Refill(s) Start Date: 06/09/23 Stop Date: 06/16/23 Status: Ordered Quantity: 7.0 Unit: tab(s) Repeat number: 1 1 ml LORazepam 2 mg/ml injection (2 sources) Benzodiazepine Start: 10-01-2019 End: 10-01-2019 LORazepam (ATIVAN) 2 MG/ML injection Start: 10-01-2019 End: 10-01-2019 LORazepam (ATIVAN) injection 0.5 mg 1 ml meperidine hydrochloride 25 mg/ml cartridge (1 source) Opioid Agonist Start: 10-01-2019 End: 10-01-2019 meperidine (DEMEROL) injection 12.5 mg methylPREDNISolone 4 mg oral tablet (4 sources) Corticosteroid Start: 06-17-2024 End: 06-27-2024 methylPREDNIsolone 4 MG Tab Therapy Pack tablet follow package directions 21 tablet 06/17/2024 06/27/2024 Discontinued Start: 04-09-2024 End: 04-16-2024 take 1 tablet by mouth once Methylprednisolone (Medrol (Jacky)) 4 mg tablets,dose pack Discontinued 0 PO per package directions April 09, 2024 1:00am April 16, 2024 3:41pm PO PER PKG DIR Start: 12-20-2023 End: 12-26-2023 take 1 tablet by mouth once daily methylPREDNISolone 4 mg oral tablet 1 packet(s), Oral, qDay, as directed on package labeling, X 6 day(s), # 21 tab(s), 0 Refill(s), 12/26/23 1:54:00 PM EDT, Pharmacy: [facility]/pharmacy #[id number], Acute radicular low back pain, 180, cm, 12/20/23 13:17:00 EDT, Height, kg, 12/20/23 13:17:00 EDT, Dosing Weight Start Date: 12/20/23 Stop Date: 12/26/23 Status: Ordered oxyCODONE hydrochloride 5 mg oral tablet (1 source) Opioid Agonist Start: 06-14-2024 End: 06-27-2024 take 1 tablet by mouth every six hours as needed for pain oxyCODONE 5 MG tablet Indications: Post-op pain Take 1 tablet by mouth every 6 hours as needed for Moderate Pain or Severe Pain for up to 7 days. 28 tablet 06/14/2024 06/27/2024 Discontinued predniSONE 10 mg oral tablet (10 sources) Start: 04-16-2024 End: 06-27-2024 take 1 tablet by mouth once daily in the morning predniSONE 10 MG tablet Take 1 tablet by mouth daily every morning. 04/16/2024 06/27/2024 Discontinued Start: 04-16-2024 End: 10-24-2024 take 1 tablet by mouth twice daily Prednisone 10 mg tablet Discontinued 10 mg PO TWICE A DAY May 08, 2024 9:44am October 24, 2024 2:30pm Start: 01-16-2023 End: 01-28-2023 prednisone 10mg tab (TAPER) Taper 40-30-20-10 x 3 days each dose, Oral, qDay, Take with food/meal, # 30 tab(s), 0 Refill(s), Pharmacy: [facility]/pharmacy #[id number], Cervical pain Sinus congestion, 177, cm, 01/16/23 14:32:00 EDT, Height, kg, 01/16/23 14:32:00 EDT, Dosing Weight Start Date: 01/16/23 Stop Date: 01/28/23 Status: Ordered tamsulosin hydrochloride 0.4 mg oral capsule (19 sources) alpha-Adrenergic Cherie Start: 02-15-2019 End: 04-22-2021 take 0.4 mg by mouth twice daily Flomax Discontinued 0.4 mg SL/PO TWICE A DAY April 14, 2021 1:00am April 22, 2021 4:06pm Problems Active Problems Problem Classification Problem Date Documented Date Episodic/Chronic Acute and unspecified renal failure (10 sources) Chronic renal failure 02-11-2019 Chronic Aortic; peripheral; and visceral artery aneurysms (7 sources) Aortic root dilatation; Translations: [Thoracic aortic ectasia] 05-05-2021 Chronic Chronic kidney disease (5 sources) Chronic kidney disease stage 3; Translations: [Stage 3 chronic kidney disease] 04-07-2021 Chronic Chronic kidney disease (2 sources) Chronic kidney disease; Translations: [Chronic kidney disease, stage 3a] Onset: 02-02-2024 Diabetes mellitus without complication (11 sources) Prediabetes; Translations: [Prediabetes] 02-11-2019 Episodic Disorders of lipid metabolism (15 sources) Hypertriglyceridemia; Translations: [Pure hyperglyceridemia] 02-11-2019 Chronic Esophageal disorders (14 sources) Gastroesophageal reflux disease; Translations: [Gastro-esophageal reflux disease without esophagitis] 05-08-2015 Chronic Essential hypertension (4 sources) Hypertensive disorder; Translations: [Benign essential hypertension] 03-14-2024 Chronic Genitourinary symptoms and ill-defined conditions (14 sources) Acute retention of urine ; Translations: [Retention of urine] Onset: 10-15-2019 10-15-2019 Episodic Hyperplasia of prostate (20 sources) Benign prostatic hyperplasia; Translations: [Benign prostatic hypertrophy with outflow obstruction] Onset: 12-01-2016 05-08-2019 Chronic Inflammatory conditions of male genital organs (1 source) Chronic prostatitis; Translations: [Chronic prostatitis] Onset: 11-06-2019 11-06-2019 Chronic Malaise and fatigue (7 sources) Fatigue; Translations: [Other fatigue] Onset: 08-07-2024 04-22-2021 Episodic Nutritional deficiencies (10 sources) Vitamin D deficiency 02-11-2019 Chronic Other connective tissue disease (1 source) Pain of left thigh; Translations: [Pain in left thigh] Episodic Other diseases of bladder and urethra (4 sources) Spasm of bladder; Translations: [Other specified disorders of bladder] 10-16-2019 Chronic Other diseases of bladder and urethra (1 source) Spasm of bladder; Translations: [Bladder spasm] Onset: 10-15-2019 10-15-2019 Episodic Other nutritional; endocrine; and metabolic disorders (1 source) Hypophosphatemia; Translations: [Other disorders of phosphorus metabolism] 06-06-2024 Chronic Other screening for suspected conditions (not mental disorders or infectious disease) (3 sources) Patient encounter status; Translations: [Encounter for screening for malignant neoplasm of colon] Onset: 10-24-2024 10-24-2024 Episodic Other upper respiratory infections (7 sources) Sinusitis 08-03-2022 Chronic Residual codes; unclassified (15 sources) Obstructive sleep apnea syndrome; Translations: [Obstructive sleep apnea (adult) (pediatric)] 01-28-2021 Chronic Residual codes; unclassified (3 sources) History of transurethral prostatectomy; Translations: [S/P TURP] Onset: 10-01-2019 10-01-2019 Episodic Residual codes; unclassified (4 sources) Family history of coronary arteriosclerosis; Translations: [Family history of ischemic heart disease and other diseases of the circulatory system] 04-22-2021 Episodic Residual codes; unclassified (2 sources) History of lumbar discectomy; Translations: [Other specified postprocedural states] 06-27-2024 Episodic Residual codes; unclassified (2 sources) History of operative procedure on lumbar spinal structure; Translations: [Other specified postprocedural states] 04-03-2024 Episodic Residual codes; unclassified (1 source) Physical deconditioning 08-18-2024 Episodic Spondylosis; intervertebral disc disorders; other back problems (9 sources) Cervical spondylosis; Translations: [Spondylosis without myelopathy or radiculopathy, cervical region] Onset: 02-01-2012 Chronic Unclassified (1 source) Unknown / UNK(Unknown) Onset: 12-01-2016 Unclassified (10 sources) Patient encounter status 02-11-2019 Unclassified (1 source) Low back pain, unspecified; Translations: [Low back pain, unspecified] Onset: 02-29-2024 Urinary tract infections (4 sources) Urinary tract infectious disease; Translations: [Urinary tract infection, site not specified] 10-14-2019 Episodic Past or Other Problems Problem Classification Problem Date Documented Da te Episodic/Chronic Biliary tract disease (4 sources) Biliary colic; Translations: [Calculus of bile duct without cholangitis or cholecystitis without obstruction] Onset: 11-26-2014 11-26-2014 Episodic Other diseases of kidney and ureters (4 sources) Renal insufficiency; Translations: [Disorder of kidney and ureter, unspecified] Onset: 12-18-2019 12-18-2019 Episodic Other gastrointestinal disorders (4 sources) Heartburn; Translations: [Heartburn] Onset: 11-28-2014 11-28-2014 Episodic Other nervous system disorders (2 sources) Other acute postprocedural pain; Translations: [Other acute postprocedural pain] Onset: 06-14-2024 Episodic Residual codes; unclassified (4 sources) Tobacco use and exposure - finding; Translations: [Tobacco use] Onset: 11-28-2014 11-28-2014 Episodic Residual codes; unclassified (3 sources) Other specified postprocedural states; Translations: [Other specified postprocedural states] Onset: 05-20-2024 Episodic Spondylosis; intervertebral disc disorders; other back problems (20 sources) Neck pain; Translations: [Stenosis of lumbar vertebral foramen] Onset: 03-05-2024 01-16-2023 Episodic Unclassified (1 source) History of lumbar discectomy 08-18-2024 Results Test Name Value Interpretation Reference Range Facility /[facility] 12-16-2024 /PAT.[facility] Medical Records Department [address] [place] [address] PAT - Anesthesia 12/16/24 0940 MR#: [id number] Acct: [id number] Name: DORIAN CLAUDIO Rep #: [id number] : 1960 64 From: Luther Frausto MD PCP: Dr. Jeff Rosario, DO Status:PRE SDC Y Race: C Location: [place] Pre-Assessment Diagnosis/Proposed Procedure Planned Operative Procedure(s): COLONOSCOPY Anesthesia History Anesthesia History - clinical cytopathologist: Anesthesia History - clinical cytopathologist Hx Hospitalization No 12/16/24 09:34 Any Problems With Anesthesia Yes: SLOW TO AWAKEN 12/16/24 09:34 Cholinesterase deficiency No 12/16/24 09:34 You/Your Family Experience No 12/16/24 09:34 fever (hyperthermia) with Relationship Recent Exposure to Contagious No 04/03/24 12:01 Disease Does patient have nerve No 12/16/24 09:34 stimulator Patient instructed to have device shut off --Does patient have Pacemaker or ICD? When Was Last Pacemaker Check QUESTION #4 FULL TEXT: You/Your Family Experience fever (hyperthermia) with Anesthesia Last Oral Intake Last Oral intake: Last Oral Intake NPO since Meds taken in AM with sips of water? Meds patient instructed to take am of surgery PONV PONV - clinical cytopathologist: PONV - clinical cytopathologist Female No 12/16/24 09:34 HX of Motion Sickness No 12/16/24 09:34 HX of N/V After Surgery No 12/16/24 09:34 Non-Smoker Yes 12/16/24 09:34 Duration of Surgery greater No 12/16/24 09:34 than 60 minutes Number of Risk Factors 1 12/16/24 09:34 PONV Score Low Risk 12/16/24 09:34 Height Weight Height Weight: Anesthesia: Height Weight Height 5 ft 11 in 10/24/24 14:31 Respiratory Assessment Respiratory Assessment - clinical cytopathologist: Respiratory Tract Infection Hx - clinical cytopathologist Hx Respiratory Tract Infection No 12/16/24 09:34 STOP Sleep Apnea STOP Sleep Apnea - clinical cytopathologist: STOP Sleep Apnea - clinical cytopathologist Hx Hypertension Yes: CONTROLLED ON MED 12/16/24 09:34 Hx Sleep Apnea Yes 12/16/24 09:34 CPAP Yes: NONCOMPLIANT 12/16/24 09:34 BIPAP No 12/16/24 09:34 Do you snore loudly (louder than talking or can be heard Do you often feel tired/ fatigued/ sleepy during daytime? Has anyone observed you stop breathing during sleep? STOP Results Positive 12/16/24 09:34 QUESTION #5 FULL TEXT : Do you snore loudly (louder than talking or can be heard through closed doors)? 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 Specify any problems Hx of Preganancy in last 3 N/A 12/16/24 09:34 Months Nurse Filling Out Transfusion VCHRISTIN 12/16/24 09:34 Questions: Date: 12/16/24 12/16/24 09:34 Time: 09:35 12/16/24 09:34 Patient unable to answer at this time (ie. confused, unrespo /Reproductio n History /Reproductiv e History - clinical cytopathologist: /Reproductiv e Hx- clinical cytopathologist Hx Now No 12/16/24 09:34 Gestational Age (in weeks): EDC: Hx Hx Para Hx Section SAB No 12/16/24 09:34 [facility] Medical History (Updated 12/16/24 @ 09:37 by Zehra Hyman) History of steroid therapy Arthritis Back pain Numbness and tingling History of pain when walking Hypertension History of echocardiogram History of stress test Fatigue Family history of coronary artery disease Wears glasses Wears contact lenses Alcohol use Prostate disease History of renal disease High cholesterol Smoker CPAP (continuous positive airway pressure) dependence Cardiology follow-up encounter Hypertriglyceridemia GERD (gastroesophageal reflux disease) TATE on CPAP BPH (benign prostatic hyperplasia) Stage III chronic kidney disease Home Medications ???Medication ???Instructions ???Recorded ???Last Taken ???Type fenofibrate 160 mg tablet 160 mg PO DAILY 10/11/19 Unknown H istory amlodipine 5 mg tablet 5 mg PO DAILY 03/20/24 04/03/24 Hi story multivitamin 1 tab PO QDAY 10/24/24 Unknown His tory (more content not included)... Normal [facility] Gastroenterology Visit Repor ton 10-24-2024 Gastroenterology Visit Report [facility] [address] [place] [address] OFFICE VISIT Date of Service: 10/24/24 MR#: [id number] Acct: [id number] Name: DORIAN CLAUDIO Rep #: [id number] 20 : 1960 Provider: SANDI cisneros Age/Sex: 64/M Location[place] [facility] Status: Signed Intake Vital Signs 04/03/24 12:01 10/24/24 14:31 Height 5 ft 11 in 5 ft 11 in Weight: 177 lb 4 oz BMI 24.7 BP 127/85 H Respiration 16 Pulse 68 Pulse Oximetry (%) 94 Oxygen Delivery Method room air Intake Visit Reasons: Pre Colon Chief Complaint: screening colonoscopy Allergies gabapentin Adverse Reaction (Verified 10/24/24 14:27) Other NSAIDS (Non-Steroidal Anti-Inflamma Adverse Reaction (Verified 10/24/24 14:27) STAGE 3 KIDNEY DISEASE Medications ???Medication ???Instructions ???Recorded ???Confirmed ???Type fenofibrate 160 mg tablet 160 mg PO DAILY 10/11/19 10/24/24 History amlodipine 5 mg tablet 5 mg PO DAILY 03/20/24 10/24/24 Hi story multivitamin 1 tab PO QDAY 10/24/24 10/24/24 Hi story sod picosulf 10 mg-magnes 3.5 175 ml PO .COMPLEX 1 dose #350 mL 10/24/24 10/24/24 Rx gram-citric 12 gram/175 mL oral solution (Clenpiq) PFSH Medical History History of steroid therapy Arthritis Back pain Numbness and tingling History of pain when walking Hypertension History of echocardiogram History of stress test Fatigue Family history of coronary artery disease Wears glasses Wears contact lenses Alcohol use Prostate disease History of renal disease High cholesterol Smoker CPAP (continuous positive airway pressure) dependence Cardiology follow-up encounter Hypertriglyceridemia GERD (gastroesophageal reflux disease) TATE on CPAP BPH (benign prostatic hyperplasia) Stage III chronic kidney disease Surgical History Hx of neck surgery History of transurethral resection of prostate History of back surgery History of cholecystectomy Family History Father Atrial fibrillation Cardiac pacemaker in situ Grandfather CAD (coronary artery disease) Myocardial infarction, Onset Age: 55 Social History household members: spouse Smoking Status: Current some day smoker tobacco type: cigars alcohol intake: current alcohol intake frequency: 0-2 drinks per day Alcohol type: wine substance use type: does not use caffeine: Yes Type: coffee Number of servings: 2 HPI HPI Chief Complaint: screening colonoscopy Details: DORIAN CLAUDIO, is a 64 M who presents to the office today for - denies any any family h/o colon CA - screening colon 10 years ago - denies any change in bowel habits or weight loss - denies any HB, N/V - denies any heart or lung disease ROS Const Constitutional: No fatigue, fever(s) or weight change ENT ENT: No difficulty swallowing Gastro GI: No abdominal pain, belching, bloating, change in bowel habits, change in stool character, coffee ground emesis, constipation, cramping, diarrhea, heartburn, difficulty swallowing, feeling full early, excessive flatus, incontinent of stools, Vomiting blood/hematemesis, Blood in stool, loose stools, Black,tarry stools, nausea/dyspepsia, pain with swallowing, vomiting or other Musc Musculoskeletal: No joint pain Skin Skin: No yellowing of the eye or itchy eyes Psych Psychiatric: No anxiety and No depression Endo Endocrine: No fatigue or weight change Aller/Imm Allergy/Immunologic: No itchy eyes Dexter/Lymp Hematologic/Lymphatic : No easy bleeding or easy bruising Exam Const General: cooperative, healthy appearing, no acute distress and well developed Nutritional Appearance: average body habitus and well nourished Orientation: alert and oriented x3 HENMT Head: normocephalic Ears: hearing grossly normal bilaterally Mouth: moist mucous membranes Teeth and gingiva: dentition normal Eyes Conjunctivae: conjunctivae normal Sclera: sclerae normal Neck Neck: normal visual inspection, full ROM and trachea midline Resp Effort Inspection: normal respiratory effort, able to speak in complete sentences and symmetric chest movement Auscultation: Bilateral: Clear to Auscultation Cardio Rate: regular rate Rhythm: regular rhythm GI Inspection: normal to inspection Auscultation: normal bowel sounds Palpation: soft and no hepatosplenomegaly Rectal Exam: deferred Skin General: no rashes or lesions noted and turgor normal Neuro General: patient alert and patient oriented x3 Cranial Nerves: other (CN's grossly intact, non-focal exam) Cognition: normal cognition Speech: speech normal Gait: normal gait Extrem General: normal (more content not included)... Normal [facility] Anion gap in Serum or Plasma Ordered By: Jeff Rosario on 08-03-2024 Anion gap [Moles/Vol] 12 mmol/L 10-03 [facility] BUN/creatinine ratioOrdered By: Jeff Rosario on 08-03-2024 Urea nitrogen/Creatinine [Mass ratio] 21.2 mg/mg High 10- [facility] Bilirubin, totalOrdered By: Jeff Rosario on 08-03-2024 Bilirubin [Mass/Vol] 0.64 mg/dL 0.00-1.30 [facility] Calculated very low density lipoprotein (VLDL) cholesterol measurementOrdered By: Jeff Rosario on 08-03-2024 Calculated very low density lipoprotein (VLDL) cholesterol measurement 14 mg/dL [facility] VLDL Cholesterol 14 mg/dL [facility] Carbon dioxide, total [Moles /volume] in Central venous bloodOrdered By: Jeff Rosario on 08-03-2024 CO2 [Moles/Vol] 24.3 mmol/L 21.0-32.0 [facility] Chloride assayOrdered By: Freddy Rosario on 08-03-2024 Chloride [Moles/Vol] 105 mmol/L 98-108 [facility] Comprehensive Metabolic Prof ilon 08-03-2024 Albumin [Mass/Vol] 4.6 g/dL Normal 3.4-4.8 [facility] Comment on above: Performed By: #### L 500.4100, L501.9985, L501.9910, L500.4050 #### [facility] Laboratory [address] [place], [address] Albumin/Globulin [Mass ratio] 1.5 {ratio} Normal 0.9-2.4 [facility] Comment on above: Performed By: #### L 500.4100, L501.9985, L501.9910, L500.4050 #### [facility] [address] [place], [address] ALK PHOS 63 U/L Normal 40-129 [facility] Comment on above: Performed By: #### L 500.4100, L501.9985, L501.9910, L500.4050 #### [facility] [address] [place], [address] ALT [Catalytic activity/Vol] 33 U/L Normal <=46 [facility] Comment on above: Performed By: #### L 500.4100, L501.9985, L501.9910, L500.4050 #### [facility] [address] [place], [address] AST [Catalytic activity/Vol] 37 U/L Normal <=37 [facility] Comment on above: Performed By: #### L 500.4100, L501.9985, L501.9910, L500.4050 #### [facility] [address] [place], [address] Bilirubin [Mass/Vol] 0.64 mg/dL Normal 0.00-1.30 [facility] Comment on above: Performed By: #### L 500.4100, L501.9985, L501.9910, L500.4050 #### [facility] [address] [place], [address] BUN/CRE 21.2 RATIO High 10-20 [facility] Comment on above: Performed By: #### L 500.4100, L501.9985, L501.9910, L500.4050 #### [facility] [address] [place], [address] Calcium [Mass/Vol] 9.9 mg/dL Normal 7.6-11.0 [facility] Comment on above: Performed By: #### L 500.4100, L501.9985, L501.9910, L500.4050 #### [facility] [address] [place], [address] Chloride [Moles/Vol] 105 mmol/L Normal 98-108 [facility] Comment on above: Performed By: #### L 500.4100, L501.9985, L501.9910, L500.4050 #### [facility] [address] [place], [address] CO2 [Moles/Vol] 24.3 mmol/L Normal 21.0-32.0 [facility] Comment on above: Performed By: #### L 500.4100, L501.9985, L501.9910, L500.4050 #### [facility] [address] [place], [address] Creatinine [Mass/Vol] 1.34 mg/dL High 0.70-1.20 [facility] Comment on above: Performed By: #### L 500.4100, L501.9985, L501.9910, L500.4050 #### [facility] [address] [place], [address] GAP 12 Normal 5-15 [facility] Comment on above: Performed By: #### L 500.4100, L501.9985, L501.9910, L500.4050 #### [facility] [address] [place], [address] GFR/1.73 sq M.predicted among non-blacks MDRD (S/P/Bld) [Vol rate/Area] 60 mL/min/{1.73_m2} Normal >60 [facility] Comment on above: Result Comment: mL/m in/1.73m2 CKD-EPI Creatinine Equation (2020) Performed By: #### L 500.4100, L501.9985, L501.9910, L500.4050 #### [facility] [address] [place], [address] Globulin (S) [Mass/Vol] 3.0 g/dL Normal 2.2-4.2 [facility] Comment on above: Performed By: #### L 500.4100, L501.9985, L501.9910, L500.4050 #### [facility] Laboratory [address] [place], [address] Glucose [Mass/Vol] 107 mg/dL High 70-99 [facility] Comment on above: Performed By: #### L 500.4100, L501.9985, L501.9910, L500.4050 #### [facility] [address] [place], [address] Potassium [Moles/Vol] 4.2 mmol/L Normal 3.3-5.1 [facility] Comment on above: Performed By: #### L 500.4100, L501.9985, L501.9910, L500.4050 #### [facility] [address] [place], [address] Sodium [Moles/Vol] 141 mmol/L Normal 133-145 [facility] Comment on above: Performed By: #### L 500.4100, L501.9985, L501.9910, L500.4050 #### [facility] [address] [place], [address] T PROT 7.6 g/dL Normal 5.9-8.4 [facility] Comment on above: Performed By: #### L 500.4100, L501.9985, L501.9910, L500.4050 #### [facility] [address] [place], [address] Urea nitrogen [Mass/Vol] 28 mg/dL High 4-19 [facility] Comment on above: Performed By: #### L 500.4100, L501.9985, L501.9910, L500.4050 #### [facility] [address] [place], [address] GFR/1.73 sq M.predicted annemarie g non-blacks MDRD (S/P/Bld) [Vol rate/Area]Ordered By: Jeff Rosario on 08-03-2024 Estimated GFR (MDRD) Non-Af Amer 60 >60 [facility] Comment on above: mL/min/1.73m2 CKD-EP I Creatinine Equation (2020) Glomerular filtration rate ( GFR) estimation/1.73 sq m using serum, plasma, or whole bOrdered By: Jeff Rosario on 08-03-2024 GFR/1.73 sq M.predicted among non-blacks MDRD (S/P/Bld) [Vol rate/Area] 60 mL/min/{1.73_m2} >60 [facility] Comment on above: mL/min/1.73m2 CKD-EP I Creatinine Equation (2020) Hemoglobin A1con 08-03-2024 HbA1c (Bld) [Mass fraction] 5.9 % Normal <=5.6 [facility] Comment on above: Performed By: #### L 500.4100, L501.9985, L501.9910, L500.4050 #### [facility] [address] [place], [address] Hemoglobin A1c percentageOrd ered By: Jeff Rosario on 08-03-2024 HbA1c (Bld) [Mass fraction] 5.9 % >5.7 [facility] LDL calc ser/plasOrdered By: Jeff Rosario on 08-03-2024 Cholesterol in LDL [Mass/Vol] 125 mg/dL [facility] Comment on above: Frjpbznzvv=932-631 m g/dL & Higher Wind=553 mg/dL or greater LDL Cholesterol, Calculated 125 mg/dL [facility] Comment on above: Hwqftgwgzl=522-446 m g/dL & Higher Wrul=395 mg/dL or greater Laboratory - Chemistry and C hemistry - challengeOrdered By: Jeff Rosario on 08-03-2024 AST [Catalytic activity/Vol] 37 U/L <38 [facility] Lipid Profileon 08-03-2024 CHOL:HDL 3.23 Normal [facility] Comment on above: Performed By: #### L 500.4100, L501.9985, L501.9910, L500.4050 #### [facility] Laboratory [address] [place], [address] Cholesterol [Mass/Vol] 202 mg/dL High <=200 [facility] Comment on above: Result Comment: Chol esterol level, Desirable <200 mg/dL Borderline high cholesterol 200-239 mg/dL High cholesterol >=240 mg/dL Recommendations of the NCEP Adult Treatment Panel for the following risk-cutoff thresholds for the [place] population. Performed By: #### L 500.4100, L501.9985, L501.9910, L500.4050 #### [facility] [address] [place], [address] Cholesterol in HDL [Mass/Vol] 63 mg/dL Normal [facility] Comment on above: Result Comment: Lorenza onal Cholesterol Education Program (NCEP) guidelines: <40 mg/dL: Low HDL-cholesterol (major risk factor for CHD) >= 60 mg/dL: High HDL-cholesterol (negative risk factor for CHD) HDL-cholesterol is affected by a number of factors, e.g. smoking, exercise, hormones, sex and age. Performed By: #### L 500.4100, L501.9985, L501.9910, L500.4050 #### [facility] [address] [place], [address] Cholesterol in LDL [Mass/Vol] 125 mg/dL Normal [facility] Comment on above: Result Comment: Bord bhbrgx=577-828 mg/dL Higher Lcpq=026 mg/dL or greater Performed By: #### L 500.4100, L501.9985, L501.9910, L500.4050 #### [facility] Laboratory [address] [place], [address] Cholesterol in VLDL [Mass/Vol] 14 mg/dL Normal 5-40 [facility] Comment on above: Performed By: #### L 500.4100, L501.9985, L501.9910, L500.4050 #### [facility] [address] [place], [address] Triglyceride [Mass/Vol] 72 mg/dL Normal [facility] Comment on above: Result Comment: The drugs N-Acetylcysteine and Metamizole may falsely depress this assay. Normal range: <150 mg/dL Borderline High: 150-199 mg/dL High: 200-499 mg/dL Very High: >500 mg/dL Performed By: #### L 500.4100, L501.9985, L501.9910, L500.4050 #### [facility] [address] [place], [address] PSA, total screeningOrdered By: Jeff Rosario on 08-03-2024 Prostate Specific Antigen Screen 1.90 ng/mL 0.02-4.00 [facility] Comment on above: This test was perfor med using the [employer] tPSA method. Measured values of a patient sample can vary depending on the testing procedure used. PSA values determined on patient samples by different testing procedures cannot be used interchangeably. If there is a change in PSA assays while monitoring therapy, sequential testing should be performed to confirm baseline values. PSA,Total - Annual Screenon 08-03-2024 PSA,TOT SCREEN 1.90 ng/mL Normal 0.02-4.00 [facility] Comment on above: Result Comment: This test was performed using the [employer] tPSA method. Measured values of a patient??sample can vary depending on the testing procedure used. PSA values determined on patient samples by different testing procedures cannot be used interchangeably. If there is a change in PSA assays while monitoring therapy, sequential testing should be performed to confirm baseline values. Performed By: #### L 500.4100, L501.9915, L501.9910, L500.4050 ####[facility] [address] [place], [address] Potassium (Unsp spec) [Mass/ Vol]Ordered By: Jeff Rosario on 08-03-2024 Potassium [Moles/Vol] 4.2 mmol/L 3.3-5.1 [facility] Potassium measurement (mass/ volume)Ordered By: Jeff Rosario on 08-03-2024 Potassium (Unsp spec) [Mass/Vol] 4.2 mmol/L 3.3-5.1 [facility] Screening total cholesterol/ high density lipoprotein (HDL) cholesterol ratioOrdered By: Jeff Rosario on 08-03-2024 Cholesterol.total/Chol esterol in HDL [Mass ratio] 3.23 {ratio} [facility] Serum creatinine measurement (mass/volume)Ordered By: Jeff Rosario on 08-03-2024 Creatinine [Mass/Vol] 1.34 mg/dL High 0.70-1.20 [facility] Serum globulin measurementOr dered By: Jeff Rosario on 08-03-2024 Globulin (S) [Mass/Vol] 3.0 g/dL 2.2-4.2 [facility] Serum glucose measurement (m ass/volume)Ordered By: Jeff Rosario on 08-03-2024 Glucose [Mass/Vol] 107 mg/dL High 70-99 [facility] Serum or plasma alanine smith otransferase (ALT) measurementOrdered By: Jeff Rosario 08-03-2024 ALT [Catalytic activity/Vol] 33 U/L <47 [facility] Serum or plasma albumin ambar urement (mass/volume)Ordered By: Jeff Rosario on 08-03-2024 Albumin [Mass/Vol] 4.6 g/dL 3.4-4.8 [facility] Serum or plasma albumin/glob ulin mass ratioOrdered By: Jeff Rosario on 03-15-2025 Albumin/Globulin [Mass ratio] 1.5 {ratio} 0.9-2.4 [facility] Serum or plasma alkaline rosa maria sphatase measurementOrdered By: Jeff Rosario on 08-03-2024 ALP [Catalytic activity/Vol] 63 U/L 40-129 [facility] Serum or plasma calcium ambar urement (mass/volume)Ordered By: Jeff Rosario on 08-03-2024 Calcium [Mass/Vol] 9.9 mg/dL 7.6-11.0 [facility] Serum or plasma cholesterol in HDL measurement (mass/volume)Ordered By: Jeff Rosario on 08-03-2024 Cholesterol in HDL [Mass/Vol] 63 mg/dL >40 [facility] Comment on above: National Cholesterol Education Program (NCEP) guidelines:<40 mg/dL: Low HDL-cholesterol (major risk factor for CHD)>= 60 mg/dL: High HDL-cholesterol (negative risk factor for CHD)HDL-cholesterol is affected by a number of factors, e.g. smoking, exercise, hormones, sex and age. Serum or plasma cholesterol measurement (mass/volume)Ordered By: Jeff Rosario on 08-03-2024 Cholesterol [Mass/Vol] 202 mg/dL High <201 [facility] Comment on above: Cholesterol level, D esirable <200 mg/dLBorderline high cholesterol 200-239 mg/dLHigh cholesterol >=240 mg/dLRecommendations of the NCEP Adult Treatment Panel for the following risk-cutoff thresholds for the [place] population. Serum or plasma urea nitroge n measurement (mass/volume)Ordered By: Jeff Rosario on 08-03-2024 Urea nitrogen [Mass/Vol] 28 mg/dL High 4-19 [facility] Sodium levelOrdered By: Wagner Rosario on 08-03-2024 Sodium [Moles/Vol] 141 mmol/L 133-145 [facility] Total proteinOrdered By: Cece Rosario on 08-03-2024 Protein [Mass/Vol] 7.6 g/dL 5.9-8.4 [facility] Triglycerides measurementOrd ered By: Jeff Rosario on 08-03-2024 Triglyceride [Mass/Vol] 72 mg/dL <199 [facility] [place] Comment on above: The drugs N-Acetylcy steine and Metamizole may falsely depress this assay. Normal range: <150 mg/dLBorderline High: 150-199 mg/dLHigh: 200-499 mg/dLVery High: >500 mg/dL ABORH TYPE RECONFIRMATIONon 06-14-2024 ABO/RH(D) TYPE Positive Normal [facility] Comment on above: Performed By: #### T YPEC #### [facility] (DEFAULT) [address] [place] [address] SCREEN: MRSA/MSSAOrdered By: Heather Wallace on 06-01-2024 Interpretation and review of laboratory results Normal [facility] Methicillin Resistant S. Aureus By Pcr Negative Negative [facility] Staphylococcus Aureus By Pcr Negative Negative [facility] This test was performed using a real time PCR assay. Results should be interpreted in conjunction with other clinical and laboratory findings. A positive result does not necessarily indicate the presence of viable organism. This test should not be used as a test of cure. For E-swab specimens, this test was developed and its performance characteristics determined by the Clinical Microbiology Laboratory at [facility]. It has not been cleared or approved by the FDA.The laboratory is regulated under CLIA as qualified to perform high-complexity testing. This test is used for clinical purposes. It should not be regarded as investigational or for research. [facility] CALCIUMon 05-31-2024 Calcium [Mass/Vol] 10.0 mg/dL 8.6 - 10. 5 mg/dL [facility] Calcium [Mass/Vol] 10.0 mg/dL Normal 8.6-10.5 [facility] Comment on above: Performed By: #### C A, MGO, IPB, CHM7 #### [facility] (DEFAULT) [address] [place] [address] CBC AND ELECTRONIC DIFFon Basophils (Bld) [#/Vol] K/uL 0.00 - 0.09 K/uL [facility] Basophils/100 WBC (Bld) 0.4 % [facility] Differential cell count method Nom (Bld) Electronic Differential [facility] Eosinophils (Bld) [#/Vol] 0.06 10*3/uL 0.00 - 0.48 K/uL [facility] Eosinophils/100 WBC (Bld) 0.7 % [facility] Erythrocyte distribution width (RBC) [Ratio] 12.6 % 10.9 - 14.3 % [facility] Hematocrit (Bld) [Volume fraction] 48.1 % 39.6 - 48.8 % [facility] Hemoglobin (Bld) [Mass/Vol] 15.9 g/dL 13.4 - 16.8 g/dL [facility] Immature granulocytes (Bld) [#/Vol] K/uL NINF - 0.07 K/uL [facility] Immature granulocytes/100 WBC (Bld) 0.4 % [facility] Interpretation and review of laboratory results Abnormal [facility] Lymphocytes (Bld) [#/Vol] 0.93 10*3/uL 0.83 - 3.57 K/uL [facility] Lymphocytes/100 WBC (Bld) 11.0 % [facility] MCH (RBC) [Entitic mass] 29.6 pg 26.1 - 33.3 pg [facility] MCHC (RBC) [Mass/Vol] 33.1 g/dL 31.9 - 36.5 g/dL [facility] MCV (RBC) [Entitic vol] 89.4 fL 79.0 - 94.5 fL [facility] Monocytes (Bld) [#/Vol] 0.36 10*3/uL 0.24 - 0.93 K/uL [facility] Monocytes/100 WBC (Bld) 4.3 % [facility] Neutrophils (Bld) [#/Vol] 7.04 10*3/uL High 1.57 - 6.19 K/uL [facility] Nucleated RBC/100 WBC (Bld) [Ratio] 0.0 % [facility] Platelet mean volume (Bld) [Entitic vol] 10.3 fL 8.7 - 12.3 fL [facility] Platelets (Bld) [#/Vol] 296 10*3/uL 146 - 337 K/uL [facility] RBC (Bld) [#/Vol] 5.38 10*6/uL [facility] Segmented neutrophils/100 WBC (Bld) 83.2 % [facility] WBC (Bld) [#/Vol] 8.45 10*3/uL 3.73 - 10. 10 K/uL [facility] Abs Baso Auto < Normal 0.00-0.09 [facility] Comment on above: Performed By: #### L [id number] #### [facility] (DEFAULT) [address] [address] Basophils/100 WBC (Bld) 0.4 % Normal [facility] Comment on above: Performed By: #### L [id number] #### [facility] (DEFAULT) [address] [address] DIFF STATUS Electronic Differential Normal [facility] Comment on above: Performed By: #### L [id number] #### [facility] (DEFAULT) [address] [address] Eosinophils (Bld) [#/Vol] 0.06 10*3/uL Normal 0.00-0.48 [facility] Comment on above: Performed By: #### L [id number] #### [facility] (DEFAULT) [address] [address] Eosinophils/100 WBC (Bld) 0.7 % Normal [facility] Comment on above: Performed By: #### L [id number] #### [facility] (DEFAULT) [address] [address] Hematocrit (Bld) [Volume fraction] 48.1 % Normal 39.6-48.8 [facility] Comment on above: Performed By: #### L [id number] #### [facility] (DEFAULT) [address] [place] [address] Hemoglobin (Bld) [Mass/Vol] 15.9 g/dL Normal 13.4-16.8 [facility] Comment on above: Performed By: #### L [id number] #### [facility] (DEFAULT) [address] [address] Immature Grans % 0.4 % Normal [facility] Comment on above: Performed By: #### L [id number] #### [facility] (DEFAULT) [address] [address] Immature Grans Absolute < Normal <=0.07 [facility] Comment on above: Performed By: #### L [id number] #### [facility] (DEFAULT) [address] [address] Lymphocytes (Bld) [#/Vol] 0.93 10*3/uL Normal 0.83-3.57 [facility] Comment on above: Performed By: #### L [id number] #### [facility] (DEFAULT) [address] [address] Lymphocytes/100 WBC (Bld) 11.0 % Normal [facility] Comment on above: Performed By: #### L [id number] #### [facility] (DEFAULT) [address] [address] MCV (RBC) [Entitic vol] 89.4 fL Normal 79.0-94.5 [facility] Comment on above: Performed By: #### L [id number] #### [facility] (DEFAULT) [address] [address] Mean Cell Hgb 29.6 pg Normal 26.1-33.3 [facility] Comment on above: Performed By: #### L [id number] #### [facility] (DEFAULT) [address] [address] Mean Cell Hgb Conc 33.1 g/dL Normal 31.9-36.5 [facility] Comment on above: Performed By: #### L [id number] #### [facility] (DEFAULT) [address] [place] [address] Monocytes (Bld) [#/Vol] 0.36 10*3/uL Normal 0.24-0.93 [facility] Comment on above: Performed By: #### L [id number] #### [facility] (DEFAULT) [address] [place] [address] Monocytes/100 WBC (Bld) 4.3 % Normal [facility] Comment on above: Performed By: #### L [id number] #### [facility] (DEFAULT) [address] [place] [address] Nucleated RBC 0.0 /100 WBC Normal <=0.2 [facility] Comment on above: Performed By: #### L [id number] #### [facility] (DEFAULT) [address] [place] [address] Platelet mean volume (Bld) [Entitic vol] 10.3 fL Normal 8.7-12.3 [facility] Comment on above: Performed By: #### L [id number] #### [facility] (DEFAULT) [address] [place] [address] Platelets (Bld) [#/Vol] 296 10*3/uL Normal 146-337 [facility] Comment on above: Performed By: #### L [id number] #### [facility] (DEFAULT) [address] [place] [address] RBC (Bld) [#/Vol] 5.38 10*6/uL Normal 4.38-5.83 [facility] Comment on above: Performed By: #### L [id number] #### [facility] (DEFAULT) [address] [place] [address] RBC Distribution 12.6 % Normal 10.9-14.3 [facility] Comment on above: Performed By: #### L [id number] #### [facility] (DEFAULT) [address] [place] [address] Segs + Bands Auto 83.2 % Normal [facility] Comment on above: Performed By: #### L [id number] #### [facility] (DEFAULT) [address] [place] [address] Segs + Bands,Absolute Auto 7.04 K/uL High 1.57-6.19 [facility] Comment on above: Performed By: #### L [id number] #### [facility] (DEFAULT) [address] [place] [address] WBC (Bld) [#/Vol] 8.45 10*3/uL Normal 3.73-10.10 [facility] Comment on above: Performed By: #### L [id number] #### [facility] (DEFAULT) [address] [address] CHEM 7 (LYTES,BUN,CREA,GLUC) on 05-31-2024 Anion gap [Moles/Vol] 13 mmol/L 7 - 17 mmol/L [facility] Chloride [Moles/Vol] 104 mmol/L 98 - 10 8 mmol/L [facility] CO2 [Moles/Vol] 29 mmol/L 21 - 31 mmol/L [facility] Creatinine [Mass/Vol] 1.44 mg/dL High 0.70 - 1.30 mg/dL [facility] eGFR, CKD-EPI, Male 56 Low - PINF [facility] Comment on above: Reported eGFR is bas ed on the CKD-EPI 2020 equation using creatinine, age, and sex. Glucose [Mass/Vol] 123 mg/dL High 70 - 99 mg/dL [facility] Osmolality Calc [Osmolality] 303 [facility] Potassium [Moles/Vol] 4.3 mmol/L 3.5 - 5.0 mmol/L [facility] Sodium [Moles/Vol] 142 mmol/L 135 - 145 mmol/L [facility] Urea nitrogen [Mass/Vol] 26 mg/dL High 7 - 25 mg/dL [facility] Urea nitrogen/Creatinine [Mass ratio] 18 mg/mg [facility] Anion gap [Moles/Vol] 13 mmol/L Normal 7-17 [facility] Comment on above: Performed By: #### L [id number], PTI #### [facility] (DEFAULT) [address] [address] Chloride [Moles/Vol] 104 mmol/L Normal 98-108 [facility] Comment on above: Performed By: #### L [id number], PTI #### [facility] (DEFAULT) [address] [address] CO2 [Moles/Vol] 29 mmol/L Normal 21-31 [facility] Comment on above: Performed By: #### L [id number], PTI #### [facility] (DEFAULT) [address] [address] Creatinine [Mass/Vol] 1.44 mg/dL High 0.70-1.30 [facility] Comment on above: Performed By: #### L [id number], PTI #### [facility] (DEFAULT) [address] [address] GFR/1.73 sq M.predicted among non-blacks MDRD (S/P/Bld) [Vol rate/Area] 55 mL/min/{1.73_m2} Low >=60 [facility] Comment on above: Result Comment: Repo rted eGFR is based on the CKD-EPI 2020 equation using creatinine, age, and sex. Performed By: #### L [id number], PTI #### [facility] (DEFAULT) [address] [place] [address] Glucose [Mass/Vol] 123 mg/dL High 70-99 [facility] Comment on above: Performed By: #### L [id number], PTI #### [facility] (DEFAULT) [address] [place] [address] Osmolality [Osmolality] 303 mosm/kg Normal 278-305 [facility] Comment on above: Performed By: #### L [id number], PTI #### [facility] (DEFAULT) [address] [place] [address] Potassium [Moles/Vol] 4.3 mmol/L Normal 3.5-5.0 [facility] Comment on above: Performed By: #### L [id number], PTI #### [facility] (DEFAULT) [address] [place] [address] Sodium [Moles/Vol] 142 mmol/L Normal 135-145 [facility] Comment on above: Performed By: #### L [id number], PTI #### [facility] (DEFAULT) [address] [place] [address] Urea nitrogen [Mass/Vol] 26 mg/dL High 7-25 [facility] Comment on above: Performed By: #### L [id number], PTI #### [facility] (DEFAULT) [address] [place] [address] Urea nitrogen/Creatinine [Mass ratio] 18 mg/mg Normal [facility] Comment on above: Performed By: #### L [id number], PTI #### [facility] (DEFAULT) [address] [place] [address] EXTRA LIGHT BLUE TOP DOUBLE SPINon 05-31-2024 Dummy LRR - Route to Double Spin Received [facility] EXTRA MICROon 05-31-2024 [facility] EXTRA URINEon 05-31-2024 [facility] HEMOGLOBIN A1Con 05-31-2024 Average glucose Estimated from glycated hemoglobin (Bld) [Mass/Vol] 120 mg/dL [facility] HbA1c (Bld) [Mass fraction] 5.8 % High 4.7 - 5.6 % [facility] Interpretation and review of laboratory results Abnormal [facility] Glucose [Mass/Vol] 120 mg/dL Normal [facility] Comment on above: Performed By: #### L [id number], PTI #### [facility] (DEFAULT) [address] [place] [address] Hemoglobin A1C HPLC 5.8 % High 4.7-5.6 [facility] Comment on above: Performed By: #### L [id number], PTI #### [facility] (DEFAULT) [address] [place] [address] MAGNESIUMon 05-31-2024 Magnesium [Mass/Vol] 2.2 mg/dL 1.6 - 2 .6 mg/dL [facility] Magnesium [Mass/Vol] 2.2 mg/dL Normal 1.6-2.6 [facility] Comment on above: Performed By: #### C A, MGO, IPB, CHM7 #### [facility] (DEFAULT) [address] [place] [address] NICOTINE SCREEN URINEOrdered By: Yusuf Love on 05-31-2024 Cotinine (U) [Mass/Vol] Not detected Cutoff: 500 ng/mL [facility] Interpretation and review of laboratory results Normal [facility] NICOTINE SCREEN URINEon 05-22 Nicotine (Cotinine) Not detected Normal Cutoff: 500 ng/mL [facility] Comment on above: Performed By: #### N ICOTU #### [facility] (DEFAULT) [address] [place] [address] No Panel Informationon 05-31 Interpretation and review of laboratory results Abnormal [facility] Interpretation and review of laboratory results Normal [facility] PHOSPHATE, INORGANICon 05-31 Phosphate [Mass/Vol] 1.6 mg/dL Low 2.2 - 4 .6 mg/dL [facility] Phosphorous 1.6 mg/dL Low 2.2-4.6 [facility] Comment on above: Performed By: #### L [id number], PTI #### [facility] (DEFAULT) [address] [place] [address] PREPARE TO TRANSFUSE OR RED BLOOD CELLSon 05-31-2024 [facility] PROTIME-INRon 05-31-2024 INR Coag (Bld) [Relative time] 0.9 {INR} 0.9 - 1.1 [facility] Interpretation and review of laboratory results Normal [facility] PT Coag (PPP) [Time] 12.4 s [facility] INR Coag (PPP) [Relative time] 0.9 {INR} Normal 0.9-1.1 [facility] Comment on above: Performed By: #### L [id number], PTI #### [facility] (DEFAULT) [address] [place] [address] PT Coag (PPP) [Time] 12.4 s Normal 11.9-14.2 [facility] Comment on above: Performed By: #### L [id number], PTI #### [facility] (DEFAULT) [address] [place] [address] PTT W/MIXING STUDY PERF ONLY Ordered By: Darius Avery on 05-31-2024 aPTT Coag (PPP) [Time] 27.9 s [facility] PTT Mixing Study With Normal Plasma Not Indicated [facility] PTT W/MIXING STUDY PERF ONLY on 05-31-2024 aPTT Coag (Bld) [Time] 27.9 s Normal 24.0-34.3 [facility] Comment on above: Performed By: #### L [id number], PTI #### [facility] (DEFAULT) [address] [place] [address] PTT Mixing Study With Normal Plasma Not Indicated Normal [facility] Comment on above: Performed By: #### L [id number], PTI #### [facility] (DEFAULT) [address] [place] [address] SCREEN: MRSA/MSSAon 05-31-19 25 Methicillin Resistant S. Aureus By Pcr Negative Normal Negative [facility] Comment on above: Order Comment: This test was performed using a real time PCR assay. Results should be interpreted in conjunction with other clinical and laboratory findings. A positive result does not necessarily indicate the presence of viable organism. This test should not be used as a test of cure. For E-swab specimens, this test was developed and its performance characteristics determined by the Clinical Microbiology Laboratory at [facility]. It has not been cleared or approved by the FDA.The laboratory is regulated under CLIA as qualified to perform high-complexity testing. This test is used for clinical purposes. It should not be regarded as investigational or for research. Performed By: #### S CRSB #### [facility] (DEFAULT) [address] [place] [address] Staphylococcus Aureus By Pcr Negative Normal Negative [facility] Comment on above: Order Comment: This test was performed using a real time PCR assay. Results should be interpreted in conjunction with other clinical and laboratory findings. A positive result does not necessarily indicate the presence of viable organism. This test should not be used as a test of cure. For E-swab specimens, this test was developed and its performance characteristics determined by the Clinical Microbiology Laboratory at [facility]. It has not been cleared or approved by the FDA.The laboratory is regulated under CLIA as qualified to perform high-complexity testing. This test is used for clinical purposes. It should not be regarded as investigational or for research. Performed By: #### S CRSB #### [facility] (DEFAULT) [address] [place] [address] TYPE AND SCREEN - PREADMISSI ONon 05-31-2024 ABO/RH(D) TYPE Positive [facility] Outdate Specimen 06/30/2024 23:59 [facility] ABO/RH(D) TYPE Positive Normal [facility] Comment on above: Performed By: #### L [id number], PTI #### [facility] (DEFAULT) [address] [address] Outdate Specimen 06/17/2024 23:59 Normal [facility] Comment on above: Performed By: #### L [id number], PTI #### [facility] (DEFAULT) [address] [address] URINALYSIS REFLEX TO CULTURE PERFORMABLEOrdered By: Shelby Lazar on 05-31-2024 Appearance (U) Clear Clear [facility] Bacteria LM Ql (Urine sed) ABSENT ABSENT [facility] Color (U) Yellow Yellow [facility] Epithelial cells.squamous LM Ql (Urine sed) 0-2/hpf 0-2/hpf, 3-5/hpf = 1+ [facility] Gl[facility] Test [facility] (U) [Mass/Vol] Negative [facility] Interpretation and review of laboratory results [facility] Ketones (U) [Mass/Vol] Negative Negative [facility] Leukocyte esterase Test strip Ql (U) Negative Negative [facility] Nitrite Ql (U) Negative Negative [facility] pH (U) 7.0 [pH] 5.0 - 7.0 [facility] Protein (U) [Mass/Vol] Negative Negative [facility] RBC (U) [#/Vol] Negative [facility] RBC LM.HPF (Urine sed) [#/Area] 0-2 [facility] Specific gravity (U) [Rel density] 1.015 1.001 - 1.035 [facility] Urobilinogen (U) [Mass/Vol] 0.2 E.U./dL 0.2 E.U/dL, 1.0 E.U/dL [facility] WBC LM.HPF (Urine sed) [#/Area] 0 - 5 [facility] URINALYSIS REFLEX TO CULTURE PERFORMABLEon 05-31-2024 Appearance (U) Clear Normal Clear [facility] Comment on above: Performed By: #### U [id number] #### [facility] (DEFAULT) [address] [address] Bacteria ABSENT Normal ABSENT [facility] Comment on above: Performed By: #### U [id number] #### [facility] (DEFAULT) [address] [address] Blood Urine Negative Normal Negative [facility] Comment on above: Performed By: #### U [id number] #### [facility] (DEFAULT) [address] [place] [address] Color (U) Yellow Normal Yellow [facility] Comment on above: Performed By: #### U [id number] #### [facility] (DEFAULT) [address] [place] [address] Glucose Ql (U) Negative Normal Negative [facility] Comment on above: Performed By: #### U [id number] #### [facility] (DEFAULT) [address] [place] [address] Ketones Ql (U) Negative Normal Negative [facility] Comment on above: Performed By: #### U [id number] #### [facility] (DEFAULT) [address] [place] [address] Leukocyte esterase Test strip Ql (U) Negative Normal Negative [facility] Comment on above: Performed By: #### U [id number] #### [facility] (DEFAULT) [address] [place] [address] Nitrites Urine Negative Normal Negative [facility] Comment on above: Performed By: #### U [id number] #### [facility] (DEFAULT) [address] [place] [address] pH (U) 7.0 [pH] Normal 5.0-7.0 [facility] Comment on above: Performed By: #### U [id number] #### [facility] (DEFAULT) [address] [place] [address] Protein Urine Negative Normal Negative [facility] Comment on above: Performed By: #### U [id number] #### [facility] (DEFAULT) [address] [place] [address] RBC Urine 0-2 Normal 0-2 [facility] Comment on above: Performed By: #### U [id number] #### [facility] (DEFAULT) [address] [place] [address] Specific Wall Urine 1.015 Normal 1.001-1.035 [facility] Comment on above: Performed By: #### U [id number] #### [facility] (DEFAULT) [address] [address] Squamous/Epithelial Cells 0-2/hpf Normal 0-2/hpf, 3-5/hpf = 1+ [facility] Comment on above: Performed By: #### U [id number] #### [facility] (DEFAULT) [address] [place] [address] Urobilinogen Urine 0.2 E.U./dL Normal 0.2 E.U/d L, 1.0 E.U/dL [facility] Comment on above: Performed By: #### U [id number] #### [facility] (DEFAULT) [address] [address] WBC Urine 0 - 5 Normal 0 - 5 [facility] Comment on above: Performed By: #### U [id number] #### [facility] (DEFAULT) [address] [address] XR SPINE LUMBAR 4+ VIEWSon 1 07-11-2023 XR SPINE LUMBAR 4+ VIEWS EXAM: XR SPINE LUMBAR 5 VIEWS, 05/10/2024 09:40 AM COMPARISON: No priors available for comparison. CLINICAL INDICATIONS: Low back pain RELEVANT CLINICAL HISTORY: M54.40:Low back pain with sciatica, sciatica laterality unspecified, unspecified back pain laterality, unspecified chronicity Standing AP, lateral, flexion and extension; FINDINGS: 5 images obtained. Vertebral: There are 5 typical lumbar spine vertebral bodies. No compression deformity. Disc: Multilevel endplate osteophytes throughout the lumbar spine. Disc space narrowing is most severe at the L3-4, L4-5, and L5-S1 levels. There is minimal retrolisthesis of L3 on L4 and of L4 and L5. No instability. Joint: Facet arthropathy throughout the lumbar spine, most prominent at the L4-L5 and L5-S1 levels. IMPRESSION: Multilevel degenerative disc disease and facet arthropathy. No instability. I personally viewed and interpreted these images and I have reviewed and approved this report. Normal [facility] XR Spine Lumbar and Sacrum 5 Viewson 05-10-2024 IMPRESSION: Multilevel degenerative disc disease and facet arthropathy. No instability. I personally viewed and interpreted these images and I have reviewed and approved this report. OLOGY EXAM: XR SPINE LUMBA R 5 VIEWS, 05/10/2024 09:40 AM COMPARISON: No priors available for comparison. CLINICAL INDICATIONS: Low back pain RELEVANT CLINICAL HISTORY: M54.40:Low back pain with sciatica, sciatica laterality unspecified, unspecified back pain laterality, unspecified chronicity Standing AP, lateral, flexion and extension; FINDINGS: 5 images obtained. Vertebral: There are 5 typical lumbar spine vertebral bodies. No compression deformity. Disc: Multilevel endplate osteophytes throughout the lumbar spine. Disc space narrowing is most severe at the L3-4, L4-5, and L5-S1 levels. There is minimal retrolisthesis of L3 on L4 and of L4 and L5. No instability. Joint: Facet arthropathy throughout the lumbar spine, most prominent at the L4-L5 and L5-S1 levels. RADIOLOGY Yusuf Meyer MD - 05/10/2024 EXAM: XR SPINE LUMBAR 5 VIEWS, 05/10/2024 09:40 AM COMPARISON: No priors available for comparison. CLINICAL INDICATIONS: Low back pain RELEVANT CLINICAL HISTORY: M54.40:Low back pain with sciatica, sciatica laterality unspecified, unspecified back pain laterality, unspecified chronicity Standing AP, lateral, flexion and extension; FINDINGS: 5 images obtained. Vertebral: There are 5 typical lumbar spine vertebral bodies. No compression deformity. Disc: Multilevel endplate osteophytes throughout the lumbar spine. Disc space narrowing is most severe at the L3-4, L4-5, and L5-S1 levels. There is minimal retrolisthesis of L3 on L4 and of L4 and L5. No instability. Joint: Facet arthropathy throughout the lumbar spine, most prominent at the L4-L5 and L5-S1 levels. IMPRESSION IMPRESSION: Multilevel degenerative disc disease and facet arthropathy. No instability. I personally viewed and interpreted these images and I have reviewed and approved this report. [facility] Radiology Study observation (narrative) [facility] XR Spine Lumbar and Sacrum 5 ViewsOrdered By: Yusuf Meyer on 05-10-2024 [facility] Work Phone: Orthopedic Visit Reporton Orthopedic Visit Report [facility] [address] [place] [address] OFFICE VISIT Date of Service: 04/26/24 MR#: [id number] Acct: [id number] Name: DORIAN CLAUDIO Rep #: [id number] : 1960 Provider: Dr. Pascual Davenport MD Age/Sex: 64/M Location: [facility] Status: Signed Intake Vital Signs 04/03/24 12:01 Height 5 ft 11 in Intake Visit Reasons: LUMBAR SPINE Chief Complaint: MRI Review Accompanied by: Self Is patient in pain?: Yes Pain scale (1-10): 5 Allergies gabapentin Adverse Reaction (Verified 04/26/24 07:37) Other NSAIDS (Non-Steroidal Anti-Inflamma Adverse Reaction (Verified 04/26/24 07:35) STAGE 3 KIDNEY DISEASE Medications ???Medication ???Instructions ???Recorded ???Confirmed ???Type fenofibrate 160 mg tablet 160 mg PO DAILY 10/11/19 04/26/24 History amlodipine 5 mg tablet 5 mg PO DAILY 03/20/24 04/26/24 History ibuprofen 200 mg tablet 200 mg PO DAILY 03/20/24 04/26/24 History gabapentin 300 mg capsule 300 mg PO QHS #14 caps 04/16/24 04/26/24 Rx prednisone 10 mg tablet 10 mg PO BID #30 tabs 04/16/24 04/26/24 Rx PFSH Medical History History of steroid therapy Arthritis Back pain Numbness and tingling History of pain when walking Hypertension History of echocardiogram History of stress test Fatigue Family history of coronary artery disease Wears glasses Wears contact lenses Alcohol use Prostate disease History of renal disease High cholesterol Smoker CPAP (continuous positive airway pressure) dependence Cardiology follow-up encounter Hypertriglyceridemia GERD (gastroesophageal reflux disease) TATE on CPAP BPH (benign prostatic hyperplasia) Stage III chronic kidney disease Surgical History Hx of neck surgery History of transurethral resection of prostate History of back surgery History of cholecystectomy Family History Father Atrial fibrillation Cardiac pacemaker in situ Grandfather CAD (coronary artery disease) Myocardial infarction, Onset Age: 55 Social History household members: spouse Smoking Status: Current some day smoker tobacco type: cigars alcohol intake: current alcohol intake frequency: 0-2 drinks per day Alcohol type: wine substance use type: does not use caffeine: Yes Type: coffee Number of servings: 2 HPI LUMBAR SPINE Details: This documentation accurately reflects the service provided and the decisions made by me, Dr. Pascual Davenport MD 04/26/24 0730. Part of today???s visit was documented by Leda Sood ATC, acting as scribe. DORIAN CLAUDIO is a 64 year old M here today for lumbar spine MRI review. Patient rates his pain a 5/10. Patient states this week the pain has been improved but still far from completely gone. He states the more he walks the more his pain will bother him. Patient states he continues to take the Prednisone but is no longer taking Gabapentin as he had an adverse reaction to it. He took only one day of the gabapentin. Patient states the numbness/tingling that he was having in the left leg has gotten a little better and is more just numbness now rather than tingling and it is more in the top of the foot. No right sided symptoms. Ortho Exam General General: Yes no acute distress Neurologic: Yes alert and Yes oriented x3 Spine SPINE TESTING CERVICAL THORACIC LUMBAR Musculoskeletal Strength 0=absent - 5=normal Details: Incision well-healed. Neurological exam of the lower extremities shows 5x5 power, pain with knee extension. Normal sensations across all dermatomes. No hyperreflexia. No midline or paraspinal tenderness. Passive straight leg raise test is positive on the left. 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 MRI showed narrowing of the left L4-5 lateral recess and neural foramen related to the left sided disc protrusion. Imaging shows multilevel disc height loss with it most severe at L5-S1, a slight retrolisthesis at L4 on L5. MRI showed postsurgical changes of right laminotomy at L5-S1 from the past. Postsurgical changes of left extraforaminal discectomy at L4-5 also noticed. Explained imaging findings in detail. He seems to develop recurrent disc herniation this time more in the lateral recess as a paracentral disc bulge at L4-5 on the left. His extraforaminal disc herniation has resolved. Although the disc herniation is mild to moderate with mild to moderate lateral recess stenosis, it seems (more content not included)... Normal [facility] Spine Lumbar (Routine)on Spine Lumbar (Routine) [facility] Imaging Services [address] [place], [place] [address] Spine Lumbar (Routine) MR#: [id number] Acct: [id number] Name: DORIAN CLAUDIO Rep #: [id number] : 1960 M 64 From: Charles Olivares MD PCP: Dr. Jeff Rosario, DO Status: REG CLI Study: Spine Lumbar (Routine) Date of Exam: 04/19/24 Exam# [id number] Ordering Dr: Pascual Davenport MD [id number] EXAM: MR LUMBAR SPINE WITHOUT INTRAVENOUS CONTRAST CLINICAL INDICATION: pain --persistent Lumbar Radiculopathy L5-S1, discectomy 2 weeks ago, no relief TECHNIQUE: Multiplanar and multisequence MR images of the lumbar spine without intravenous contrast. COMPARISON: MR Lumbar Spine dated 01/15/2024 FINDINGS: VERTEBRAE: Alignment of the lumbar vertebral bodies is normal. Normal vertebral body height. No bone marrow edema. SPINAL CORD: Normal. Normal position and signal intensity of the conus medullaris. SOFT TISSUES: Normal. DISCS/SPINAL CANAL/NEURAL FORAMINA: L1-L2: Normal. Normal disc height and morphology. Normal spinal canal and lateral recesses. Normal neuroforamina. L2-L3: Normal. Normal disc height and morphology. Normal spinal canal and lateral recesses. Normal neuroforamina. L3-L4: Normal. Normal disc height and morphology. Normal spinal canal and lateral recesses. Normal neuroforamina. L4-L5: Mild disc space narrowing at L4-5 unchanged from prior exam. Left posterolateral disc protrusion and facet arthropathy result in narrowing of the left lateral recess and left neural foramen. Mild spinal stenosis. L5-S1: Moderate disc space narrowing associated with Modic type II endplate changes. No disc protrusion. No spinal stenosis. Prominent narrowing of the right neural foramen related to vertebral body hypertrophy and facet arthropathy. Intact left neural foramen. MRI/Spine Lumbar (Routine) IMPRESSION: 1. Narrowing of the left L4-5 lateral recess and neural foramen related to the left sided disc protrusion. 2. Prominent narrowing of the right L5-S1 neural foramen secondary to bony hypertrophy. Electronically Signed: Charles Olivares MD at 16:56 EST Reading Location ID and State: [facility] / ID Tel , Service support , CC: Dr. Jeff Rosario DO; Dr. 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 Pascual Davenport MD Age/Sex: 64/M Location: [facility] Status: Signed Intake Vital Signs 02/29/24 14:53 04/03/24 12:01 Height 5 ft 11 in 5 ft 11 in Intake Visit Reasons: lumbar spine Accompanied by: Self Is patient in pain?: Yes Pain scale (1-10): 8 Allergies NSAIDS (Non-Steroidal Anti-Inflamma Adverse Reaction (Verified 04/16/24 14:40) STAGE 3 KIDNEY DISEASE Medications ???Medication ???Instructions ???Recorded ???Confirmed ???Type fenofibrate 160 mg tablet 160 mg PO DAILY 10/11/19 04/16/24 History amlodipine 5 mg tablet 5 mg PO DAILY 03/20/24 04/16/24 History ibuprofen 200 mg tablet 200 mg PO DAILY 03/20/24 04/16/24 History gabapentin 300 mg capsule 300 mg PO QHS #14 caps 04/16/24 04/16/24 Rx prednisone 10 mg tablet 10 mg PO BID #30 tabs 04/16/24 04/16/24 Rx PFSH Medical History History of steroid therapy Arthritis Back pain Numbness and tingling History of pain when walking Hypertension History of echocardiogram History of stress test Fatigue Family history of coronary artery disease Wears glasses Wears contact lenses Alcohol use Prostate disease History of renal disease High cholesterol Smoker CPAP (continuous positive airway pressure) dependence Cardiology follow-up encounter Hypertriglyceridemia GERD (gastroesophageal reflux disease) TATE on CPAP BPH (benign prostatic hyperplasia) Stage III chronic kidney disease Surgical History Hx of neck surgery History of transurethral resection of prostate History of back surgery History of cholecystectomy Family History Father Atrial fibrillation Cardiac pacemaker in situ Grandfather CAD (coronary artery disease) Myocardial infarction, Onset Age: 55 Social History household members: spouse Smoking Status: Current some day smoker tobacco type: cigars alcohol intake: current alcohol intake frequency: 0-2 drinks per day Alcohol type: wine substance use type: does not use caffeine: Yes Type: coffee Number of servings: 2 HPI lumbar spine Details: This documentation accurately reflects the service provided and the decisions made by me, Dr. Pascual Davenport MD 04/16/24 9926. Part of today???s visit was documented by Ananya KERR, acting as scribe. DORIAN CLAUDIO is a 64 year old M here today for 2 week post op, lumbar spine, dos 04/03/24, L4-5 left extraforaminal discectomy and decompression. He states that he is still having the same pain as he did before surgery and is having pain on his left lateral calf and is very sensitive. He is taking Tylenol for pain. He does have numbness and tingling in the leg that comes and goes vs. before surgery it was there constantly. Denies any back pain both now and prior to surgery. He rates his pain today an 8/10. He mostly has pain when he is walking and laying down, if he is in his recliner he doesn't have any pain. Says that his left leg feels weak when going down the stairs. History of stage 3 kidney disease. Ortho Exam General General: Yes no acute distress Neurologic: Yes alert and Yes oriented x3 Spine SPINE TESTING CERVICAL THORACIC LUMBAR Musculoskeletal Strength 0=absent - 5=normal Details: Incision well-healed. Neurological exam of the lower extremities shows 5x5 power. Normal sensations across all dermatomes. No hyperreflexia. No midline or paraspinal tenderness. Passive straight leg raise test is positive on the left. Coding Level of Care Code Global Post Op Diagnoses Lumbar radiculopathy M54.16 Assessment and Plan Assessment and Plan (1) Lumbar radiculopathy: Status: Acute Orders: Orders Spine Lumbar (Routine) 04/16/24 M54.16 - Radiculopathy, lumbar region, Z98.890 - Other specified postprocedural states Medications: New prednisone 10 mg PO BID 30 tabs 0RF gabapentin 300 mg PO QHS 14 caps 0RF Plan Patient is here today to 2 weeks postop L4-5 left extraforaminal discectomy and decompression. He continues to have pain after the surgery and feels that the pain when sitting has increased. Again reviewed imaging today with the patient and reviewed MRI from 01/15/24. Imaging shows multilevel disc height loss with it most severe at L5-S1, a slight retrolisthesis at L4 on L5. MRI showed postsurgical changes of right laminotomy at L5-S1 from the past. There is a disc herniation at L4- L5 which is predominantly foraminal extrafo (more content not included)... Normal [facility] Bedside Glucoseon 04-03-2024 FINGERSTICK GLU 104 mg/dL Normal 74-106 [facility] Comment on above: Result Comment: KIERAN CASTRO OF PATIENT CARE PER NURSING PROTOCOL Performed By: #### L 501.080 ####[facility] [id number] [place], [place], [id number] Lumbar Spine 2 or 3 Viewson 04-03-2024 Lumbar Spine [address] [facility] Imaging Services [address] [place] [address] Lumbar Spine 2 or 3 Views MR#: [id number] Acct: [id number] Name: DORIAN CLAUDIO Rep #: [id number] : 1960 M 64 From: Aries Emery PCP: Dr. Jeff Rosario DO Status: [facility] Study: Lumbar Spine 2 or 3 Views Date of Exam: Exam# [id number] Ordering Dr: Pascual Davenport MD [id number] STUDY: X-RAY - LUMBAR SPINE REASON FOR EXAM: Male, 64 years old. LT EXTRAFORAMINAL DISCECTOMY L4-5, ENDOSCOPIC TECHNIQUE: 4 fluoroscopic spot view(s) of the lumbar spine were obtained. 4 fluoroscopic spot films. 25.66 mgy COMPARISON: Lumbar spine radiograph February 29, 2024 FINDINGS: 4 fluoroscopic spot films demonstrate a metallic probe placement at L4-5 laterally. RAD/Lumbar Spine 2 or 3 Views IMPRESSION: Please correlate with clinical service Electronically Signed: Aries Ewing MD at 0:00 EST Reading Location ID and State: [facility] / [place] Tel , Service support , CC: Dr. Jeff Rosario DO; Dr. Pascual Davenport MD Insurance Sales Executive: Signed Normal [facility] MR/[email or web address] 04-03-2024 MR/POSTOP.[facility] Medical Records Department [address] [place] [address] Anesthesia Postop Eval I 04/03/24 1645 MR#: [id number] Acct: [id number] Name: DORIAN CLAUDIO Rep #: [id number] : 1960 64 From: Luther Frausto MD PCP: Dr. Jeff Rosario, DO Status:[facility] Y Race: C Location: [facility] Anesthesia: Postop Eval I Current Vital Signs Temperature: 98.6 F Pulse Rate: 77 Blood Pressure: 134/87 Respiratory Rate: 19 Pulse Ox: 99 Assessment Airway patent: Yes Spontaneous unlabored respirations: Yes nausea: No Vomiting: No Anesthesia Complication: No Fluid Hydration Crystalloid volume administer (ml): 800 Total IV fluid infused: 800 Progress Note Anesthesia document: Postop Eval 1 completed: Yes 04/04/24 0808 Date [facility] Signature: Date CC: Signed Normal [facility] MR/[id number] 04-03-2024 [facility] Medical Records Department [address] [place] [address] Anesthesia Postop Eval II 04/03/24 1711 MR#: [id number] Acct: [id number] Name: DORIAN CLAUDIO Rep #: [id number] : 1960 64 From: Harsh Hancock MD PCP: Dr. Jeff Rosario, DO Status:[facility] Y Race: C Location: [place] [address] Anesthesia Postop Eval I Sum Anesthesia Postop Eval I Summary Anesthesia Postop Eval I Summary: Anesthesia Postop Eval I: Assessment Summary Airway patent Spontaneous unlabored respirations Mental status nausea Vomiting Anesthesia Postop Eval I: Fluid Summary Crystalloid volume administer (ml) Colloids volume administered ( ml) Blood Product volume administered (ml) Total IV fluid infused Anesthesia Postop Eval I: Summary Notes Anesthesia Complication Anesthesia Complication Comment: Post-operative progress note Anesthesia: Postop Eval II Evaluation Mental status: Awake and Calm Pain Level: 2 nausea: No Vomiting: No Progress Note Post-operative progress note: Nausea treated in PACU with Benedryl/Reglan Complications Anesthesia Complication: No 04/03/24 1714 Date Harsh Hancock MD Cosigner Signature: Date CC: Signed Normal [facility] Operative Reporton 4 Operative Report [facility] Medical Records Department [address] [place] [address] Operative Report 04/03/24 1537 MR#: [id number] Acct: [id number] Name: DORIAN CLAUDIO Rep #: [id number] : 1960 64 From: Pascual Davenport MD PCP: Dr. Jeff Rosario, Status:[facility] Location: [place] [address] Operative Report (Standard) Operative Information Surgery/Procedure Performed: L4-5 left extraforaminal discectomy and decompression Surgeon: Pascual Davenport Date of Procedure: 04/03/24 Procedure Start Time: 14:04 Procedure Stop Time: 15:45 Pre-Operative Diagnosis: L4-5 left foraminal disc herniation Post-Operative Diagnosis: Same Select all DRAINS/GRAFTS/IMPLANT S that apply: None Type of Anesthesia: General Estimated Blood Loss: 5 cc Specimen collected: No Description of surgery: Preoperative diagnosis: L4-5 left foraminal disc herniation Postoperative diagnosis: Same Name of procedure: L4-5 left extraforaminal discectomy, foraminal decompression CPT 20232 Attending Surgeon: Dr. Pascual Davenport Estimated blood loss: 5 mL Anesthesia: General Indications: Patient is a 64-year-old gentleman who presented with low back pain and severe left lower extremity radiation. Imaging showed prior L5-S1 right laminotomy surgical changes, L4-5 disc degeneration with left foraminal disc herniation and stenosis. All options of treatment were discussed which included continued nonoperative treatment measures like rest physical therapy, injections. After failing a prolonged nonsurgical treatment, patient requested surgical intervention for discectomy. All risks and benefits associated with the procedure were explained to the patient. The risks include but are not limited to infection, bleeding, injury to nerves and vessels, persistent paresthesia, incidental dural tear, recurrent disc herniation, spinal instability and need for fusion or other procedures in future, persistent pain, persistent weakness and numbness, etc. Procedure: The patient was identified in the preoperative holding suite using Unique patient identifiers. Skin was marked, consent was reviewed, and all questions were answered. The patient was then brought back to the operative room. A surgical timeout was performed to make sure correct procedure was being done on the correct patient and all operative room staff were on the same page. General endotracheal anesthesia was then given to the patient. The patient was then turned prone onto a Travis table over a Talat frame. The back was prepped and draped in usual fashion. Preoperative antibiotic was injected IV. A final timeout was then again done just before starting the procedure. C-arm AP view was utilized to identify and the plane of the L4-5 disc. Skin markers were utilized to michele the midline, lateral pedicle line and line joining superior ipsilateral pedicle and inferior contralateral pedicle border. A lateral view was then taken to identify the depth of the L4-5 disc and this was measured and the incision was marked on the oblique pedicle line with the same distance from the midline. Long spinal needle was then introduced in an oblique direction going towards the left L4-5 facet joint. AP view confirmed the tip just lateral to the superior tickler process near the superior border of the left L5 pedicle. This was confirmed on lateral view to be in the foramen right above the L5 pedicle. A transverse incision was taken in this paramedian direction using the spinal needle. Guidewire was placed through the cannula of the spinal needle. Tubular retractors with serial tubular dilators were used using the C-arm AP view to dock onto the junction of the superior border of TP and lateral border of superior articular process of L5. Under direct light based visualization, soft tissues were removed with pituitary, bipolar was used to obtain hemostasis and the L4-5 disc was exposed and the Kambin [place]. A bur was utilized to remove a portion of the lateral superior articular process of L3. Kerrison rongeur was utilized to undercut the SAP from the lateral aspect. The left L5 pedicle was palpated. Disc space was confirmed on the C arm. This is a punch was utilized to make an annulotomy. Small pituitary was used to remove any loose fragments from the disc space. A ball-tipped probe was then utilized to remove the extruded fragments in the foramen. The fragments came out piecemeal. Adequate foraminotomy was then performed using Kerrison rongeurs undercutting the SAP. The ball- tipped probe was then used to probe in all directions to tease out more disc fragments. Further loose disc fragments from the disc space were also removed with help of pituitary. once adequate decompression was obtained by removal of all loose disc fragments including the ones that were extruded, 40 mg Kenalog was then injected in the foramen which is wide open and in (more content not included)... Normal [facility] CT THORAX W/O CONTRASTon CT THORAX W/O CONTRAST ORIGINAL EXAMINATION: CT CHEST WITHOUT CONTRAST 03/29/2024 3:50 pm HISTORY: ORDERING SYSTEM PROVIDED HISTORY: Reason for Exam: recheck aortic root dilatation, no current chest complaints. GATED SCAN.. TECHNIQUE: Multiple-row detector helical CT examination of the thorax without IV contrast. Axial, sagittal, and coronal reconstructed images. This exam was performed according to the departmental dose-optimization program which includes automated exposure control, adjustment of the mA and/or kV according to patient size and/or use of iterative reconstruction technique. COMPARISON: None FINDINGS: The heart is normal in size. Mild coronary artery calcifications seen. No pericardial effusion. The pulmonary arteries are normal in caliber. Limited evaluation of the aorta was performed without contrast. The annulus is not well delineated but is approximately 2.7 cm. At the coronary sinus level, the thoracic aorta is approximately 4.3 cm. At the sino-tubular junction level, the thoracic aorta is approximately 3.6 cm. At the level of the pulmonary outflow, the ascending thoracic aorta measures 4.4 cm. The mid aortic arch is measured at 3.2 cm. The descending thoracic aorta is normal in caliber. There is no visible lymphadenopathy within the limits imposed by lack of IV contrast. The lungs are not evaluated in their entirety due to the protocol used. There is multifocal atelectasis/scarring. No suspicious pulmonary abnormality is identified within the field of view. No aggressive osseous lesions identified. Degenerative changes seen of the spine. No aggressive bony lesions. The abdomen is not evaluated in detail. No suspicious findings seen in the visualized portion of the abdomen. IMPRESSION: Ectasia of the ascending thoracic aorta. There are no priors for comparison Atherosclerosis with mild coronary artery calcifications Interpreted by: Arturo Tovar MD Preliminary Report By: Arturo Tovar MD Electronically signed By Arturo Tovar MD Dictated Date: 04/01/2024 4:49:53 PM Prelim Date: 04/01/2024 4:54:37 PM Sign Date: 04/01/2024 4:54:37 PM Ordering Provider: JEFF Saravia [facility] Orthopedic Visit Reporton Orthopedic Visit Report [facility] [address] [place] [address] [address] [place] [address] OFFICE VISIT Date of Service: 03/28/24 MR#: [id number] Acct: [id number] Name: DORIAN CLAUDIO Rep #: [id number] : 1960 Provider: Dr. Pascual Davenport MD Age/Sex: 64/M Location: [facility] Status: Signed Intake Vital Signs 02/29/24 14:53 Height 5 ft 11 in Weight: 180 lb 2 oz BMI 25.1 Intake Visit Reasons: lumbar spine Accompanied by: Self Is patient in pain?: Yes Pain scale (1-10): 7 Allergies NSAIDS (Non-Steroidal Anti-Inflamma Adverse Reaction (Verified 03/28/24 14:25) STAGE 3 KIDNEY DISEASE Medications ???Medication ???Instructions ???Recorded ???Confirmed ???Type fenofibrate 160 mg tablet 160 mg PO DAILY 10/11/19 03/28/24 History acetaminophen 650 mg 1,300 mg PO DAILY 03/20/24 03/28/24 History tablet,extended release (Tylenol Arthritis Pain) amlodipine 5 mg tablet 5 mg PO DAILY 03/20/24 03/28/24 History ibuprofen 200 mg tablet 200 mg PO DAILY 03/20/24 03/28/24 History PFSH Medical History History of steroid therapy Arthritis Back pain Numbness and tingling History of pain when walking Hypertension History of echocardiogram History of stress test Fatigue Family history of coronary artery disease Wears glasses Wears contact lenses Alcohol use Prostate disease History of renal disease High cholesterol Smoker CPAP (continuous positive airway pressure) dependence Cardiology follow-up encounter Hypertriglyceridemia GERD (gastroesophageal reflux disease) TATE on CPAP BPH (benign prostatic hyperplasia) Stage III chronic kidney disease Surgical History Hx of neck surgery History of transurethral resection of prostate History of back surgery History of cholecystectomy Family History Father Atrial fibrillation Cardiac pacemaker in situ Grandfather CAD (coronary artery disease) Myocardial infarction, Onset Age: 55 Social History household members: spouse Smoking Status: Current some day smoker tobacco type: cigars alcohol intake: current alcohol intake frequency: 0-2 drinks per day Alcohol type: wine substance use type: does not use caffeine: Yes Type: coffee Number of servings: 2 HPI lumbar spine Details: This documentation accurately reflects the service provided and the decisions made by me, Dr. Pascual Davenport MD 03/28/24 8462. Part of today???s visit was documented by Nancy TURNER , acting as scribe. DORIAN CLAUDIO is a 64 year old M here today for Left Extraforaminal discectomy L4-5 d.o.s. 04/03/2024. Patient signed consent and received his drinks and soap. 03/01/24: DORIAN CLAUDIO is a 64 year old M here today NEW patient referral from Dr Hermosillo for low back pain. He states that 3 months ago he woke up and had pain. He states that 12 years ago he did have a lumbar laminectomy that was done by Dr. Ayala at [facility] but he is now retired. He has been seeing Dr Hermosillo for 6 weeks and has had 2 injection which takes the edge off but doesn't completely relieve the pain. He had a lumbar epidural steroid L5-S1 injection. He does have radiating pain down his left buttock then into his left lateral calf to his willis and foot that goes to his little toes. He did do physical therapy 3 months ago which made the pain worse. Says that his pain has worsened in the 3 months. His PCP tried steroids which didn't help and also gave him gabapentin but he doesn't take it. He does have stage 3 kidney disease so he take Tylenol arthritis. He states that longer he walks the worse the pain gets. His pain is now affecting his ADLs such as putting his shoes and socks on or getting dressed. He notes even sneezing send his pain through the roof. He did have a recent MRI on 01/15/24 from an outside facility. Ortho Exam General General: Yes no acute distress Neurologic: Yes alert and Yes oriented x3 Spine SPINE TESTING CERVICAL THORACIC LUMBAR Musculoskeletal Strength 0=absent - 5=normal Details: Neurological exam of the lower extremities shows 5x5 power. Physical examination movements exacerbated pain. Antalgic when going from sitting to standing. Normal sensations across all dermatomes. No hyperreflexia. No clonus. No midline or paraspinal tenderness. Passive straight leg raise test is positive on the left. Coding Level of Care Code Off vis,est,level 4 Diagnoses Lumbar disc herniation with radiculopathy M51.16 Time Spent (min) 35 Assessment and Plan Assessment and Plan (1) Lumbar disc herniation with radiculopathy: Status: Acute Plan Again reviewed imaging today with the pa (more content not included)... Normal [facility] Hepatitis A AB, Totalon HEPATITIS A,TOT Negative Normal Negative [facility] Comment on above: Result Comment: Comm ent: The HAV total antibody assay detects both IgG and IgM but does not differentiate between them. A negative result suggests susceptibility to infection. A positive result could be due to vaccination, previously resolved infection or active infection. Testing for HAV IgM should be performed if active HAV infection is suspected. [facility] offers profiles that will automatically reflex positive HAV total antibody results to IgM (e.g., panel #[id number] HAV Antibody w/ Rfx). Performed at: [address] [id number] Signal Maintenance Technician: Rahat Fountain PhD, Phone: [phone] Performed By: #### L 94600300, M7880.8260, L3440.4610, M100.651, L500.2500, BTSPAT, L100.0100, L3070.1325 ####[facility] [address] [place], [address] MRSA/SAID NASAL SCREENon MRSA+SAID SCRN Reason for Exam: PREOP MRSA MRSA Negative S. AUREUS S. aureus Negative Normal [facility] Comment on above: Performed By: #### L 3100.0300, L3890.6300, L3890.6200, M100.651, L500.2500, BTSPAT, L100.0100, L3890.6005 ####[facility] [address] [facility] [place], [address] 12 Lead EKGon 03-21-[address] [facility] [address] [place] [address] 12 Lead EKG 03/21/24 1350 MR#: [id number] Acct: [id number] Name: DORIAN CLAUDIO Rep #: [id number] : 1960 64 From: Ricky Gates MD Attending Dr: Dr. Pascual Davenport MD Status: PRE [facility] Ordering Dr: Pascual Davenport MD Date: 03/21/24 Location: [facility] Sex: M C Admitted: Test Reason : PREOP Blood Pressure : */* mmHG Vent. Rate : 62 BPM Atrial Rate : 62 BPM P-R Int : 154 ms QRS Dur : 92 ms QT Int : 378 ms P-R-T Axes : 8 -34 28 degrees QTcB Int : 383 ms Normal sinus rhythm Left axis deviation Moderate voltage criteria for LVH, may be normal variant Abnormal ECG Confirmed by RICKY GATES MD ([id number]), editor publications MAYNOR MAYORGA ([id number]) on 03/22/2024 11:10:02 AM Referred By: Pascual Davenport Confirmed By: RICKY GATES MD 03/22/24 1110 Date Ricky Gates MD CC: Dr. Jeff Rosario DO; Dr. Pascual Davenport MD Signed Normal [facility] Basic Metabolic Profile (BMP )on 03-21-2024 BUN/CRE 16.8 RATIO Normal 10-20 [facility] Comment on above: Performed By: #### L 3100.0300, L3890.6300, L3890.6200, M100.651, L500.2500, BTSPAT, L100.0100, L3890.6005 ####[facility] [address] [place], [address] CA,Total 9.6 mg/dL Normal 8.5-10.1 [facility] Comment on above: Performed By: #### L 3100.0300, L3890.6300, L3890.6200, M100.651, L500.2500, BTSPAT, L100.0100, L3890.6005 ####[facility] [address] [place], [address] Chloride [Moles/Vol] 107 mmol/L Normal 98-107 [facility] Comment on above: Performed By: #### L 3100.0300, L3890.6300, L3890.6200, M100.651, L500.2500, BTSPAT, L100.0100, L3890.6005 ####[facility] [address] [place], [address] CO2 [Moles/Vol] 29.0 mmol/L Normal 21.0-32.0 [facility] Comment on above: Performed By: #### L 3100.0300, L3890.6300, L3890.6200, M100.651, L500.2500, BTSPAT, L100.0100, L3890.6005 ####[facility] [address] [place], [address] Creatinine [Mass/Vol] 1.43 mg/dL High 0.70-1.30 [facility] Comment on above: Result Comment: The validity of the calculated GFR GFRAA in patients over 70 years has not been determined. Clinical correlation is essential. Performed By: #### L 3100.0300, L3890.6300, L3890.6200, M100.651, L500.2500, BTSPAT, L100.0100, L3890.6005 ####[facility] [address] [place], [address] EST GFR - AA 64 mL/min Normal >60 [facility] Comment on above: Result Comment: Afri can Turk[place] GFR Calc Performed By: #### L 3100.0300, L3890.6300, L3890.6200, M100.651, L500.2500, BTSPAT, L100.0100, L3890.6005 ####[facility] [address] [place], [address] GAP 4 Low 5-15 [facility] Comment on above: Performed By: #### L 3100.0300, L3890.6300, L3890.6200, M100.651, L500.2500, BTSPAT, L100.0100, L3890.6005 ####[facility] [address] [place], [address] GFR/1.73 sq M.predicted among non-blacks MDRD (S/P/Bld) [Vol rate/Area] 53 mL/min/{1.73_m2} Low >60 [facility] Comment on above: Result Comment: Non- GFR Calc Performed By: #### L 3100.0300, L3890.6300, L3890.6200, M100.651, L500.2500, BTSPAT, L100.0100, L3890.6005 ####[facility] [address] [place], [address] Glucose [Mass/Vol] 96 mg/dL Normal 74-106 [facility] Comment on above: Performed By: #### L 3100.0300, L3890.6300, L3890.6200, M100.651, L500.2500, BTSPAT, L100.0100, L3890.6005 ####[facility] [address] [place], [address] Potassium [Moles/Vol] 4.1 mmol/L Normal 3.5-5.1 [facility] Comment on above: Performed By: #### L 3100.0300, L3890.6300, L3890.6200, M100.651, L500.2500, BTSPAT, L100.0100, L3890.6005 ####[facility] [address] [place], [address] Sodium [Moles/Vol] 140 mmol/L Normal 136-145 [facility] Comment on above: Performed By: #### L 3100.0300, L3890.6300, L3890.6200, M100.651, L500.2500, BTSPAT, L100.0100, L3890.6005 ####[facility] [address] [place], [place], [phone] Urea nitrogen [Mass/Vol] 24 mg/dL High 7-18 [facility] Comment on above: Performed By: #### L 3100.0300, L3890.6300, L3890.6200, M100.651, L500.2500, BTSPAT, L100.0100, L3890.6005 ####[facility] [address] [place], [place], [phone] CBC W/Diff, Automatedon 10-3 Absolute Lymph 1.82 X10 3/uL Normal 0.83-4.51 [facility] Comment on above: Performed By: #### L 3100.0300, L3890.6300, L3890.6200, M100.651, L500.2500, BTSPAT, L100.0100, L3890.6005 ####[facility] [address] [place], [address] Absolute Neut 3.1 X10 3/uL Normal 2.0-7.7 [facility] Comment on above: Performed By: #### L 3100.0300, L3890.6300, L3890.6200, M100.651, L500.2500, BTSPAT, L100.0100, L3890.6005 ####[facility] [address] [place], [address] Basophils/100 WBC (Bld) 0.7 % Normal 0-1 [facility] Comment on above: Performed By: #### L 3100.0300, L3890.6300, L3890.6200, M100.651, L500.2500, BTSPAT, L100.0100, L3890.6005 ####[facility] [address] [place], [address] Eosinophils/100 WBC (Bld) 3.6 % Normal 0-5 [facility] Comment on above: Performed By: #### L 3100.0300, L3890.6300, L3890.6200, M100.651, L500.2500, BTSPAT, L100.0100, L3890.6005 ####[facility] [address] [place], [address] Erythrocyte distribution width (RBC) [Ratio] 12.9 % Normal 11.6-14.6 [facility] Comment on above: Performed By: #### L 3100.0300, L3890.6300, L3890.6200, M100.651, L500.2500, BTSPAT, L100.0100, L3890.6005 ####[facility] [address] [place], [address] Hematocrit (Bld) [Volume fraction] 46.2 % Normal 40-54 [facility] Comment on above: Performed By: #### L 3100.0300, L3890.6300, L3890.6200, M100.651, L500.2500, BTSPAT, L100.0100, L3890.6005 ####[facility] [address] [place], [address] Hemoglobin (Bld) [Mass/Vol] 15.4 g/dL Normal 13.0-16.5 [facility] Comment on above: Performed By: #### L 3100.0300, L3890.6300, L3890.6200, M100.651, L500.2500, BTSPAT, L100.0100, L3890.6005 ####[facility] [address] [place], [address] IG% 0.200 Normal 0.0-0.9 [facility] Comment on above: Result Comment: IG% - Immature Granulocytes (promyelocytes, myelocytes and metamyelocytes) > 1% indicates that a LEFT SHIFT is Present. Performed By: #### L 3100.0300, L3890.6300, L3890.6200, M100.651, L500.2500, BTSPAT, L100.0100, L3890.6005 ####[facility] [address] [place], [address] Lymphocytes/100 WBC (Bld) 32.6 % Normal 19-41 [facility] Comment on above: Performed By: #### L 3100.0300, L3890.6300, L3890.6200, M100.651, L500.2500, BTSPAT, L100.0100, L3890.6005 ####[facility] [address] [place], [address] MCH (RBC) [Entitic mass] 29.3 pg Normal 27.0-32.0 [facility] Comment on above: Performed By: #### L 3100.0300, L3890.6300, L3890.6200, M100.651, L500.2500, BTSPAT, L100.0100, L3890.6005 ####[facility] [address] [place], [address] MCHC (RBC) [Mass/Vol] 33.3 g/dL Normal 32-36 [facility] Comment on above: Performed By: #### L 3100.0300, L3890.6300, L3890.6200, M100.651, L500.2500, BTSPAT, L100.0100, L3890.6005 ####[facility] [address] [place], [address] MCV (RBC) [Entitic vol] 87.8 fL Normal 80-94 [facility] Comment on above: Performed By: #### L 3100.0300, L3890.6300, L3890.6200, M100.651, L500.2500, BTSPAT, L100.0100, L3890.6005 ####[facility] [address] [place], [address] Monocytes/100 WBC (Bld) 8.2 % Normal 0-10 [facility] Comment on above: Performed By: #### L 3100.0300, L3890.6300, L3890.6200, M100.651, L500.2500, BTSPAT, L100.0100, L3890.6005 ####[facility] [address] [place], [address] Neutrophils/100 WBC (Bld) 54.7 % Normal 47-70 [facility] Comment on above: Performed By: #### L 3100.0300, L3890.6300, L3890.6200, M100.651, L500.2500, BTSPAT, L100.0100, L3890.6005 ####[facility] [address] [place], [address] Nucleated RBC (Bld) [#/Vol] 0 10*3/uL Normal 0-5 [facility] Comment on above: Performed By: #### L 3100.0300, L3890.6300, L3890.6200, M100.651, L500.2500, BTSPAT, L100.0100, L3890.6005 ####[facility] [address] [place], [phone] Platelet mean volume (Bld) [Entitic vol] 10.2 fL Normal 6.2-12.0 [facility] Comment on above: Performed By: #### L 3100.0300, L3890.6300, L3890.6200, M100.651, L500.2500, BTSPAT, L100.0100, L3890.6005 ####[facility] [address] [place], [phone] Platelets (Bld) [#/Vol] 288 10*3/uL Normal 150-450 [facility] Comment on above: Performed By: #### L 3100.0300, L3890.6300, L3890.6200, M100.651, L500.2500, BTSPAT, L100.0100, L3890.6005 ####[facility] [address] [place], [address] RBC (Bld) [#/Vol] 5.26 10*6/uL Normal 4.6-6.2 [facility] Comment on above: Performed By: #### L 3100.0300, L3890.6300, L3890.6200, M100.651, L500.2500, BTSPAT, L100.0100, L3890.6005 ####[facility] [address] [place], [phone] RDW SD 41.4 fl Normal 35.1-43.9 [facility] Comment on above: Performed By: #### L 3100.0300, L3890.6300, L3890.6200, M100.651, L500.2500, BTSPAT, L100.0100, L3890.6005 ####[facility] [address] [place], [place], [phone] WBC (Bld) [#/Vol] 5.6 10*3/uL Normal 4.4-11.0 [facility] Comment on above: Performed By: #### L 3100.0300, L3890.6300, L3890.6200, M100.651, L500.2500, BTSPAT, L100.0100, L3890.6005 ####[facility] [address] [place], [address] HIV - WCHon 03-21-2024 HIV Non-Reactive Normal Nonreactive [facility] Comment on above: Order Comment: Reaso n for Exam: PAT Performed By: #### L 3100.0300, L3890.6300, L3890.6200, M100.651, L500.2500, BTSPAT, L100.0100, L3890.6005 ####[facility] [address] [place], [address] Hepatitis B Surface Antibody on 03-21-2024 HEP B Surf Ab Non-Reactive Normal [facility] Comment on above: Order Comment: Reaso n for Exam: PAT Result Comment: Non Reactive: Inconsistent with immunity less than <10 mIU/mL Reactive: Consistent with immunity greater than or equal to 10 mIU/mL Performed By: #### L 3100.0300, L3890.6300, L3890.6200, M100.651, L500.2500, BTSPAT, L100.0100, L3890.6005 ####[facility] [address] [place], [place], [id number] Hepatitis C Antibodyon 03-21 Hepatitis C AB Non-Reactive Normal Nonreactive [facility] Comment on above: Order Comment: Reaso n for Exam: PAT Result Comment: Non Reactive: < 0.8 Equivocal: >/= 0.8 to < 1.0 Reactive: >/= 1.0 The CDC requires that a reactive/equivocal HCV antibody result be sent out for confirmation. HCV Quant by PCR testing. Performed By: #### L 3100.0300, L3890.6300, L3890.6200, M100.651, L500.2500, BTSPAT, L100.0100, L3890.6005 ####[facility] [address] [place], [place], [address] Magnesiumon 03-21-2024 Magnesium [Mass/Vol] 2.7 mg/dL High 1.6-2.6 [facility] Comment on above: Performed By: #### L 501.5200 ####[facility] [address] [place], [place], [address] Type AND Screen - PAT ONLYon 03-21-2024 Ab SCREEN GEL Negative Normal [facility] Comment on above: Order Comment: Surge ry Date: 04/03/24Reason for Laboratory Test [id number] DISCECTOMY L4-5 Performed By: #### L 3100.0300, L3890.6300, L3890.6200, M100.651, L500.2500, BTSPAT, L100.0100, L3890.6005 ####[facility] [address] [place], [place], [address] CNPNon 03-12-2024 ABBIE Telephone (KIARA) DORIAN CLAUDIO ([id number]) 1960 M Date Time Provider Department 03/12/24 DIPAK ALBERTO During your visit today, we recorded the following information about you: Chio Estrada 03/12/2024 2:56 PM Signed Pt called; asking to get surgery scheduled. Please call to discuss; ph: [phone] Nelson Newman RN 03/14/2024 3:26 PM Signed Returned call to patient. He has seen a local provider who can offer surgery in March. Dr Alberto's next available for this is not until August He voiced appreciation for Dr Alberto and all his expertise but has decided to see the local surgeon for sooner surgery. Discussed this is understandable but he is always welcome to see Dr Alberto should he have any further spine needs. He voiced appreciation no further questions. Allergies As of Date: 03/12/2024 Noted Allergy Reaction CHLORPHENIRAMINE-PSEU DOEPHED 12/18/2019 14 - Other: See Comments IBUPROFEN 09/27/2019 14 - Other: See Comments Comments: STAGE 3 KIDNEY DISEASE NSAIDS (NON-STEROIDAL ANTI-INFLAM* 0 14 - Other: See Comments Comments: Cant take because of kidney disease Date Reviewed: 03/05/2024 Reviewed by: Aubrie Olsen OCCA - Fully Assessed Reason for Visit: Schedule Surgery [1330] Prescriptions as of 03/14/2024 - acetaminophen (TYLENOL) 500 mg tablet 800 mg. - tamsulosin ER (FLOMAX) 0.4 mg Take 0.4 mg by mouth. - silodosin (RAPAFLO) 8 mg cap capsule Take by mouth daily with dinner. - ondansetron (ZOFRAN, HYDROCHLORIDE,) 4 mg tablet Take 1 tablet by mouth every 8 hours as needed. - traMADol (ULTRAM) 50 mg tablet Take 1 tablet by mouth every 4 hours as needed. - oxyCODONE-acetaminoph en (PERCOCET) 5-325 mg tablet Take 1 tablet by mouth every 4 hours as needed. - Omeprazole 40 mg capsule - dicyclomine (BENTYL) 20 mg tablet - Fenofibrate 160 mg tablet Take 160 mg by mouth once daily. Problem List As Of Date 03/12/2024 Noted Resolved Lumbar disc herniation [M51.26] 02/01/2012 Biliary colic [K80.50] 11/26/2014 Heartburn [R12] 11/28/2014 Tobacco use [Z72.0] 11/28/2014 BPH associated with nocturia [N40.1, R35.1] 12/18/2019 Incomplete bladder emptying [R33.9] 12/18/2019 Mild renal insufficiency [N28.9] 12/18/2019 Encounter Status:Closed by NELSON NEWMAN on 03/14/24 Normal [facility] CNOVon 03-05-2024 CNOV Office Visit (SPNSMN ) DORIAN CLAUDIO ([id number]) 1960 M Date Time Provider Department 03/05/24 9:50 AM DIPAK ALBERTO NSMN During your visit today, we recorded the following information about you: Pulse Blood pressure Weight Height 89/minute 131/93 80.7 kg 1.803 m Dipak Alberto MD 03/05/2024 10:11 AM Addendum Staff note: Pain in buttock and calf LEFT sided Foot and ankle numbness 3 months of symptoms Injections [place] Midline 5.1 per patient, S3 kidney disease, cannot take NSAIDS Bending, walking worsens pain Pain is top of foot, LEFT buttock Examination 4/5 LEFT DF otherwise intact, normoreflexic MRI LR stenosis at 4.5 Xr without instability Plan LEFT 4.5 laminotomy, possible laminectomy RBAEO reviewed in comprehensive detail, all questions were answered to stated satisfaction, patient elected to proceed We discussed the minimum criteria for elective surgery: A. Imaging fits with history and examination and has surgical correctable findings B. Conservative modalities have been trialed in a meaningful way that have failed to provide relief C. The pain is significant enough to interfere with QOL and undergoing an irreversible surgical procedure makes sense to the patient from a symptom severity standpoint A and B were confirmed by me, C was confirmed by the patient. With this in mind it is reasonable to proceed with: As above I had a long discussion with the patient in the office today, they had many appropriate questions, all were answered to their satisfaction, no guarantees were offer nor implied in our discussion. Dipak Alberto MD Referring Provider: BONNY HERMOSILLO [[id number]] Allergies As of Date: 03/05/2024 Noted Allergy Reaction CHLORPHENIRAMINE-PSEU DOEPHED 12/18/2019 14 - Other: See Comments IBUPROFEN 09/27/2019 14 - Other: See Comments Comments: STAGE 3 KIDNEY DISEASE NSAIDS (NON-STEROIDAL ANTI-INFLAM* 0 14 - Other: See Comments Comments: Cant take because of kidney disease Date Reviewed: 03/05/2024 Reviewed by: Aubrie Olsen OCCA - Fully Assessed Reason for Visit: New Patient [172] Primary Visit Diagnosis:Lumbar radiculopathy [M54.16] Prescriptions as of 03/05/2024 - acetaminophen (TYLENOL) 500 mg tablet 800 mg. - tamsulosin ER (FLOMAX) 0.4 mg Take 0.4 mg by mouth. - silodosin (RAPAFLO) 8 mg cap capsule Take by mouth daily with dinner. - ondansetron (ZOFRAN, HYDROCHLORIDE,) 4 mg tablet Take 1 tablet by mouth every 8 hours as needed. - traMADol (ULTRAM) 50 mg tablet Take 1 tablet by mouth every 4 hours as needed. - oxyCODONE-acetaminoph en (PERCOCET) 5-325 mg tablet Take 1 tablet by mouth every 4 hours as needed. - Omeprazole 40 mg capsule - dicyclomine (BENTYL) 20 mg tablet - Fenofibrate 160 mg tablet Take 160 mg by mouth once daily. Problem List As Of Date 03/05/2024 Noted Resolved Lumbar disc herniation [M51.26] 02/01/2012 Biliary colic [K80.50] 11/26/2014 Heartburn [R12] 11/28/2014 Tobacco use [Z72.0] 11/28/2014 BPH associated with nocturia [N40.1, R35.1] 12/18/2019 Incomplete bladder emptying [R33.9] 12/18/2019 Mild renal insufficiency [N28.9] 12/18/2019 Encounter Status:Closed by DIPAK ALBERTO on 03/05/24 Normal [facility] XR LUMBAR 4V AP/LAT/ FLEX/EX Ton 03-05-2024 XR LUMBAR 4V AP/LAT/ FLEX/EXT * * *Final Report* * * DATE OF EXAM: Mar 05 2024 9:16AM JIX [id number] - XR LUMBAR 4V AP/LAT/ FLEX/EXT / PROCEDURE REASON: Lumbar foraminal stenosis * * * * Physician Interpretation * * * * HISTORY: Lumbar foraminal stenosis . TECHNIQUE: XR LUMBAR 4V AP/LAT/ FLEX/EXT Laterality: NOT APPLICABLE Number of different views (projections): 4 COMPARISON: Radiographs dated 03/27/2012. RESULT: Counting reference: Lumbosacral junction. For the purposes of this report, L4-5 is considered the level of the iliac crest and there are 5 lumbar-type vertebrae. Anatomic Variants: None. Minimal retrolisthesis of L4 on L5 that does not significantly change with flexion or extension. No evidence of acute spinal fracture or dislocation. There are multilevel degenerative changes with disc space narrowing, marginal endplate osteophytes and facet joint hypertrophy. Degenerative changes at the bilateral sacroiliac and hip joints and pubic symphysis. No other significant abnormality. --- IMPRESSION: Spondylosis. Insurance Sales Executive: ATA Transcribe Date/Time: Mar 05 2024 9:21A Dictated by : DENNIS VIVEROS MD This examination was interpreted and the report reviewed and electronically signed by: DENNIS VIVEROS MD on Mar 05 2024 9:21AM EST [id number] Normal [facility] XR Lumbar spine Views W flex ion and W extensionon 03-05-2024 IMPRESSION: Spondylosis. Insurance Sales Executive: [facility] Transcribe Date/Time: Mar 05 2024 9:21A Dictated by : DENNIS VIVEROS MD This examination was interpreted and the report reviewed and electronically signed by: DENNIS VIVEROS MD on Mar 05 2024 9:21AM EST DIVISION OF RADIOLOGY * * *Final Report* * * DATE OF EXAM: Mar 05 2024 9:16AM JIX [id number] - XR LUMBAR 4V AP/LAT/ FLEX/EXT / PROCEDURE REASON: Lumbar foraminal stenosis * * * * Physician Interpretation * * * * HISTORY: Lumbar foraminal stenosis . TECHNIQUE: XR LUMBAR 4V AP/LAT/ FLEX/EXT Laterality: NOT APPLICABLE Number of different views (projections): 4 COMPARISON: Radiographs dated 03/27/2012. RESULT: Counting reference: Lumbosacral junction. For the purposes of this report, L4-5 is considered the level of the iliac crest and there are 5 lumbar-type vertebrae. Anatomic Variants: None. Minimal retrolisthesis of L4 on L5 that does not significantly change with flexion or extension. No evidence of acute spinal fracture or dislocation. There are multilevel degenerative changes with disc space narrowing, marginal endplate osteophytes and facet joint hypertrophy. Degenerative changes at the bilateral sacroiliac and hip joints and pubic symphysis. No other significant abnormality. --- DIVISION OF RADIOLOGY Provider, [facility] - 03/05/2024 * * *Final Report* * * DATE OF EXAM: Mar 05 2024 9:16AM JIX [id number] - XR LUMBAR 4V AP/LAT/ FLEX/EXT / PROCEDURE REASON: Lumbar foraminal stenosis * * * * Physician Interpretation * * * * HISTORY: Lumbar foraminal stenosis . TECHNIQUE: XR LUMBAR 4V AP/LAT/ FLEX/EXT Laterality: NOT APPLICABLE Number of different views (projections): 4 COMPARISON: Radiographs dated 03/27/2012. RESULT: Counting reference: Lumbosacral junction. For the purposes of this report, L4-5 is considered the level of the iliac crest and there are 5 lumbar-type vertebrae. Anatomic Variants: None. Minimal retrolisthesis of L4 on L5 that does not significantly change with flexion or extension. No evidence of acute spinal fracture or dislocation. There are multilevel degenerative changes with disc space narrowing, marginal endplate osteophytes and facet joint hypertrophy. Degenerative changes at the bilateral sacroiliac and hip joints and pubic symphysis. No other significant abnormality. --- IMPRESSION IMPRESSION: Spondylosis. Insurance Sales Executive: [employer] Transcribe Date/Time: Mar 05 2024 9:21A Dictated by : DENNIS VIVEROS MD This examination was interpreted and the report reviewed and electronically signed by: DENNIS VIVEROS MD on Mar 05 2024 9:21AM EST [facility] Radiology Study observation (narrative) [facility] XR Lumbar spine Views W flex ion and W extensionOrdered By: Ccf Provider on 03-05-2024 [facility] L/S Spine Min 4 Viewson 02-19 L/S Spine Min 4 Views [facility] [address] [place] [address] L/S Spine Min 4 Views MR#: [id number] Acct: [id number] Name: DORIAN CLAUDIO Rep #: [id number] : 1960 M 64 From: Charles Olivares MD PCP: Dr. Jeff Rosario DO Status: DEP AMB Study: L/S Spine Min 4 Views Date of Exam: 02/29/24 Exam# [id number] Ordering Dr: Pascual Davenport MD [id number] EXAM: XR LUMBOSACRAL SPINE, 4 OR 5 VIEWS CLINICAL INDICATION: lbp -- Please do upright AP lateral flexion-extension TECHNIQUE: Frontal, lateral and bilateral oblique views of the lumbar spine. COMPARISON: No relevant prior studies available. FINDINGS: LIMITATIONS: Limited range of motion with flexion and extension. No instability. VERTEBRAE: Normal. No acute fracture or subluxation. DISC SPACES: Multilevel disc space narrowing and mild vertebral body hypertrophy. GASTROINTESTINAL TRACT: Normal bowel gas pattern. RAD/L/S Spine Min 4 Views IMPRESSION: Mild to moderate diffuse spondylosis. No evidence of instability. Electronically Signed: Charles Olivares MD at 16:52 EDT , CC: Dr. Jeff Rosario DO; Dr. Pascual Davenport MD Insurance Sales Executive: Signed Normal [facility] Orthopedic Visit Reporton Orthopedic Visit Report [facility] [address] [place] [address] OFFICE VISIT Date of Service: 02/29/24 MR#: [id number] Acct: [id number] Name: DORIAN CLAUDIO Rep #: [id number] : 1960 Provider: Dr. Pascual Davenport MD Age/Sex: 64/M Location: [facility] Status: Signed Intake Vital Signs 04/22/21 15:05 02/29/24 14:53 Height 5 ft 11 in 5 ft 11 in Weight: 180 lb 2 oz BMI 25.1 Intake Visit Reasons: LUMBAR SPINE Accompanied by: Is patient in pain?: Yes Pain scale (1-10): 7 Allergies NSAIDS (Non-Steroidal Anti-Inflamma Adverse Reaction (Verified 02/29/24 14:54) STAGE 3 KIDNEY DISEASE Medications ???Medication ???Instructions ???Recorded ???Confirmed ???Type fenofibrate 160 mg tablet 160 mg PO DAILY 10/11/19 02/29/24 History PFSH Medical History Fatigue Family history of coronary artery disease Wears glasses Wears contact lenses Alcohol use Prostate disease Indwelling urethral catheter present History of renal disease High cholesterol Smoker CPAP (continuous positive airway pressure) dependence Cardiology follow-up encounter Hypertriglyceridemia GERD (gastroesophageal reflux disease) TATE on CPAP BPH (benign prostatic hyperplasia) Stage III chronic kidney disease Surgical History Hx of neck surgery History of transurethral resection of prostate History of back surgery History of cholecystectomy Family History Father Atrial fibrillation Cardiac pacemaker in situ Grandfather CAD (coronary artery disease) Myocardial infarction, Onset Age: 55 Social History (Updated 02/29/24 @ 15:09 by Kaylan Bangura) household members: spouse Smoking Status: Current some day smoker tobacco type: cigars alcohol intake: current alcohol intake frequency: 0-2 drinks per day Alcohol type: wine substance use type: does not use caffeine: Yes Type: coffee Number of servings: 2 HPI LUMBAR SPINE Details: This documentation accurately reflects the service provided and the decisions made by me, Dr. Pascual Davenport MD 02/29/24 1451. Part of today???s visit was documented by Ananya KERR, acting as scribe. DORIAN CLAUDIO is a 64 year old M here today NEW patient referral from Dr Hermosillo for low back pain. He states that 3 months ago he woke up and had pain. He states that 12 years ago he did have a lumbar laminectomy that was done by Dr. Ayala at [facility] but he is now retired. He has been seeing Dr Hermosillo for 6 weeks and has had 2 injection which takes the edge off but doesn't completely relieve the pain. He had a lumbar epidural steroid L5-S1 injection. He does have radiating pain down his left buttock then into his left lateral calf to his willis and foot that goes to his little toes. He did do physical therapy 3 months ago which made the pain worse. Says that his pain has worsened in the 3 months. His PCP tried steroids which didn't help and also gave him gabapentin but he doesn't take it. He does have stage 3 kidney disease so he take Tylenol arthritis. He states that longer he walks the worse the pain gets. His pain is now affecting his ADLs such as putting his shoes and socks on or getting dressed. He notes even sneezing send his pain through the roof. He did have a recent MRI on 01/15/24 from an outside facility. Ortho Exam General General: Yes no acute distress Neurologic: Yes alert and Yes oriented x3 Spine SPINE TESTING CERVICAL THORACIC LUMBAR Musculoskeletal Strength 0=absent - 5=normal Details: Neurological exam of the lower extremities shows 5x5 power. Physical examination movements exacerbated pain. Antalgic when going from sitting to standing. Normal sensations across all dermatomes. No hyperreflexia. No clonus. No midline or paraspinal tenderness. Passive straight leg raise test is positive on the left. Coding Level of Care Code Off vis,est,level 4 Diagnoses Lumbar disc herniation with radiculopathy M51.16 Time Spent (min) 45 Assessment and Plan Assessment and Plan (1) Lumbar disc herniation with radiculopathy: Status: Acute Orders: Orders L/S Spine Min 4 Views 02/29/24 M54.50 - Low back pain, unspecified Plan Obtained and reviewed imaging today with the patient and reviewed MRI from 01/15/24. Imaging shows multilevel disc height loss with it most severe at L5-S1, a slight retrolisthesis at L4 on L5. MRI showed postsurgical changes of right laminotomy at L5-S1 from the past. There is a disc herniation at L4-L5 which is predominantly foraminal extraforaminal on the left. No dynamic instability on flexion-extension views. Discussed imaging findings in detail. Patient has new onset 3-month history o (more content not included)... Normal [facility] Renal Profileon 02-01-2024 Albumin [Mass/Vol] 4.0 g/dL Normal 3.2-5.0 [facility] Comment on above: Performed By: #### L 500.3600 ####[facility] [address] [place], [address] BUN/CRE 17.9 RATIO Normal 10-20 [facility] Comment on above: Performed By: #### L 500.3600 ####[facility] [address] [place], [address] CA,Total 9.6 mg/dL Normal 8.5-10.1 [facility] Comment on above: Performed By: #### L 500.3600 ####[facility] [address] [place], [address] Chloride [Moles/Vol] 106 mmol/L Normal 98-107 [facility] Comment on above: Performed By: #### L 500.3600 ####[facility] [address] [place], [address] CO2 [Moles/Vol] 29.0 mmol/L Normal 21.0-32.0 [facility] Comment on above: Performed By: #### L 500.3600 ####[facility] [address] [place], [address] Creatinine [Mass/Vol] 1.56 mg/dL High 0.70-1.30 [facility] Comment on above: Result Comment: The validity of the calculated GFR GFRAA in patients over 70 years has not been determined. Clinical correlation is essential. Performed By: #### L 500.3600 ####[facility] [address] [place], [address] EST GFR - AA 58 mL/min Low >60 [facility] Comment on above: Result Comment: Afri can Turkmen GFR Calc Performed By: #### L 500.3600 ####[facility] [address] [place], [address] GFR/1.73 sq M.predicted among non-blacks MDRD (S/P/Bld) [Vol rate/Area] 48 mL/min/{1.73_m2} Low >60 [facility] Comment on above: Result Comment: Non- GFR Calc Performed By: #### L 500.3600 ####[facility] [address] [place], [address] Glucose [Mass/Vol] 94 mg/dL Normal 74-106 [facility] Comment on above: Performed By: #### L 500.3600 ####[facility] [address] [place], [address] Phosphate [Mass/Vol] 3.0 mg/dL Normal 2.5-4.9 [facility] Comment on above: Performed By: #### L 500.3600 ####[facility] [address] [place], [address] Potassium [Moles/Vol] 3.9 mmol/L Normal 3.5-5.1 [facility] Comment on above: Performed By: #### L 500.3600 ####[facility] [address] [place], [address] Sodium [Moles/Vol] 139 mmol/L Normal 136-145 [facility] Comment on above: Performed By: #### L 500.3600 ####[facility] [address] [place], [address] Urea nitrogen [Mass/Vol] 28 mg/dL High 7-18 [facility] Comment on above: Performed By: #### L 500.3600 ####[facility] [address] [place], [address] XR SPINE LUMBAR AP/LATon XR SPINE LUMBAR AP/LAT ORIGINAL EXAMINATION: 3 XRAY VIEWS OF THE LUMBAR SPINE COMPARISON: Sacrum and coccyx on 06/19/2019 HISTORY: ORDERING SYSTEM PROVIDED HISTORY: Reason for Exam: left radicular low back pain x 3.5 weeks No known injury. FINDINGS: 5 lumbar vertebral bodies are visualized. No acute fracture or dislocation. Straightening of the lumbar lordosis may be positional in nature. The vertebral body heights are maintained. No spondylolisthesis. Fmik-fo-mhpziplg multilevel degenerative changes with intervertebral disc height loss, endplate osteophyte formation, and facet arthrosis, most prominent at L5-S1. The visualized bony pelvis and sacroiliac joints are unremarkable. Pelvic phleboliths. IMPRESSION: No acute bony abnormality. Degenerative changes as above. I have personally reviewed the images of this examination, and agree with the resident's findings and interpretation. Interpreted by: Yousuf Rodriguez MD Preliminary Report By: Thu Roldan Electronically signed By Yousuf Rodriguez MD Dictated Date: 12/21/2023 3:25:23 AM Prelim Date: 12/21/2023 3:28:10 AM Sign Date: 12/21/2023 3:34:24 AM Ordering Provider: JEFF Saravia [facility]) XR SPINE CERVICAL AP/LATon 0 01-18-2023 XR SPINE CERVICAL AP/LAT ORIGINAL EXAMINATION: TWO XRAY VIEWS OF THE CERVICAL SPINE01/16/2023 3:46 pm COMPARISON: None HISTORY: ORDERING SYSTEM PROVIDED HISTORY: Reason for Exam: cervical pain, severe headaches FINDINGS: Cervical body height and alignment is normal. There is disc space narrowing and endplate spurring posterior early at C5-6. Multilevel mzyu-qw-bkfkfhko facet arthropathy greater on the right at C3-4. Normal prevertebral soft tissue space and C1-C2. IMPRESSION: Degenerative changes as described. Interpreted by: Galileo Louise MD Preliminary Report By: Galileo Louise MD Electronically signed By Galileo Louise MD Dictated Date: 01/18/2023 12:09:49 PM Prelim Date: 01/18/2023 12:10:26 PM Sign Date: 01/18/2023 12:10:26 PM Ordering Provider: ROSELINE EUGENE Normal [facility] ([place]) Nazario 01-17-2023 Lyme IgG/IgM AB Negative Normal Negative [facility] Comment on above: Result Comment: Rece nt infection with B. burgdorferi sensu lato cannot be excluded if the specimen collected within four weeks after the onset of signs and symptoms or within six weeks after a known tick exposure. Clinical and epidemiological correlation is required. Performed By: [facility] [address] [place] [address] Signal Maintenance Technician: Thea Bergeron III#: [id number] Performed By: #### L JAIME #### [facility] [address] [place], [place] [address] CULTURE URINEon 11-10-2019 CULTURE URINE CULTURE URINE --> Status: F No growth (<1,000 CFU/ml). Normal [facility] Comment on above: Order Comment: Speci men Source Comment:Urine, clean catch Performed By: #### C /UR #### [address] [address] [place], [place] Basic Metabolic Panelon 10-21 Calcium [Mass/Vol] 10.0 mg/dL Normal 8.4-10.4 [facility] Comment on above: Performed By: #### B MP3 #### [address] [address] [place], [place] Anion gap [Moles/Vol] 13 Normal [facility] Comment on above: Performed By: #### B MP3 #### [facility] [address] [place], [place] CO2 [Moles/Vol] 19 mmol/L Low 22-30 [facility] Comment on above: Performed By: #### B MP3 #### [address] [address] [place], [place] Creatinine [Mass/Vol] 1.44 mg/dL High 0.52-1.25 [facility] Comment on above: Performed By: #### B MP3 #### [facility] [address] [place] [address] GFR/1.73 sq M predicted among blacks MDRD (S/P/Bld) [Vol rate/Area] 61.2 mL/min/{1.73_m2} Normal >60 [facility] Comment on above: Performed By: #### B MP3 #### [facility] [address] [place] [address] GFR/1.73 sq M predicted among non-blacks MDRD (S/P/Bld) [Vol rate/Area] 52.8 mL/min/{1.73_m2} Abnormal >60 [facility] Comment on above: Result Comment: KDIG O guidelines provide the following GFR categories: Stage GFR(ml/min/1.73 m2) Terms G1 >=90 Normal or high G2 60-89 Mildly decreased* G3a 45-59 Mildly to moderately decreased G3b 30-44 Moderately to severely decreased G4 15-29 Severely decreased G5 <15 Kidney failure *Relative to young adult level. In the absence of evidence of kidney damage, neither GFR category G1 nor G2 fulfill the criteria for CKD. The CKD-EPI equation is validated in individuals 18 years of age and older. Currently the best equation for estimating glomerular filtration rate (GFR) from serum creatinine in children is the Bedside Epstein equation. It is less accurate in patients with extremes of muscle mass, restriction of dietary protein, ingestion of creatine, extra-renal metabolism of creatinine, or treatment with medications that affect renal tubular creatinine secretion. Performed By: #### B MP3 #### [facility] [address] [place] [address] Glucose [Mass/Vol] 111 mg/dL High 70-100 [facility] Comment on above: Performed By: #### B MP3 #### [address] [place] [address] Urea nitrogen [Mass/Vol] 21 mg/dL High 7-20 [facility] Comment on above: Performed By: #### B MP3 #### [address] [place] [address] Chloride [Moles/Vol] 106 mmol/L Normal 98-107 [facility] Comment on above: Performed By: #### B MP3 #### [facility] [address] [place], [place] Potassium [Moles/Vol] 4.0 mmol/L Normal 3.5-5.1 [facility] Comment on above: Performed By: #### B MP3 #### [facility] [address] [place], [place] Sodium [Moles/Vol] 138 mmol/L Normal 135-145 [facility] Comment on above: Performed By: #### B MP3 #### [facility] [address] [place], [place] Anion gap [Moles/Vol] 13 mmol/L [place], [place] Calcium [Mass/Vol] 10.0 mg/dL 8.4 - 10. 4 mg/dL [place], [place] Chloride [Moles/Vol] 106 mmol/L 98 - 10 7 mmol/L [place], [place] CO2 [Moles/Vol] 19 mmol/L Low 22 - 30 mmol/L [place], [place] Creatinine [Mass/Vol] 1.44 mg/dL High 0.52 - 1.25 mg/dL [place], [place] EGFR IF NonAfrican Turkmen 52.8 mL/min Abnormal >60 [place], [place] Comment on above: KDIGO guidelines pro vide the following GFR categories: Stage GFR(ml/min/1.73 m2) Terms G1 >=90 Normal or high G2 60-89 Mildly decreased* G3a 45-59 Mildly to moderately decreased G3b 30-44 Moderately to severely decreased G4 15-29 Severely decreased G5 <15 Kidney failure *Relative to young adult level. In the absence of evidence of kidney damage, neither GFR category G1 nor G2 fulfill the criteria for CKD. The CKD-EPI equation is validated in individuals 18 years of age and older. Currently the best equation for estimating glomerular filtration rate (GFR) from serum creatinine in children is the Bedside Epstein equation. It is less accurate in patients with extremes of muscle mass, restriction of dietary protein, ingestion of creatine, extra-renal metabolism of creatinine, or treatment with medications that affect renal tubular creatinine secretion. GFR/1.73 sq M predicted among blacks MDRD (S/P/Bld) [Vol rate/Area] 61.2 mL/min/{1.73_m2} >60 [place], [place] Glucose [Mass/Vol] 111 mg/dL High 70 - 100 mg/dL [place], [place] Interpretation and review of laboratory results Abnormal [place], [place] Potassium [Moles/Vol] 4.0 mmol/L 3.5 - 5.1 mmol/L [place] Sodium [Moles/Vol] 138 mmol/L 135 - 145 mmol/L [place] Urea nitrogen [Mass/Vol] 21 mg/dL High 7 - 20 mg/dL [place] Test Performed by [id number] [place] [address] Complete Urinalysison 2019 Appearance (U) Clear Normal Clear [facility] Comment on above: Result Comment: . Performed By: #### C UA2 #### [address] Bilirubin,Urine Negative Normal Negative [facility] Comment on above: Result Comment: . Performed By: #### C UA2 #### [address] Color (U) Light-Yellow Normal Lt. Yellow [facility] Comment on above: Result Comment: . Performed By: #### C UA2 #### [address] Glucose Ql (U) Normal Normal Normal (<70) [facility] Comment on above: Result Comment: . Performed By: #### C UA2 #### [address] Ketone,Urine Negative Normal Negative [facility] Comment on above: Result Comment: . Performed By: #### C UA2 #### [address] Leukocytes,Urine 75 Kim/uL Abnormal Negative [facility] Comment on above: Result Comment: . Performed By: #### C UA2 #### [address] [address] [address] [place], [place] Mucous Threads Few Normal Negative [facility] Comment on above: Result Comment: . Performed By: #### C UA2 #### [facility] [address], [place] Nitrites,Urine Negative Normal Negative [facility] Comment on above: Result Comment: . Performed By: #### C UA2 #### [address] [address] [address] [place], [place] Occult Blood,Urine Negative Normal Negative [facility] Comment on above: Result Comment: . Performed By: #### C UA2 #### [address] [address] [address] [place], [place] pH (U) 7.0 Normal 5.0-8.0 [facility] Comment on above: Result Comment: . Performed By: #### C UA2 #### [address] [address] [address] [place], [place] Protein (U) [Mass/Vol] 10 mg/dL Abnormal Negative [facility] Comment on above: Result Comment: . Performed By: #### C UA2 #### [address] [address] [address] [place], [place] RBC LM.HPF (Urine sed) [#/Area] 3 - 5 Abnormal 0-2 [facility] Comment on above: Result Comment: . Performed By: #### C UA2 #### [address] [address] [address] [place], [place] Specific Wall,Urine 1.011 Normal 1.005 - 1.030 [facility] Comment on above: Result Comment: . Performed By: #### C UA2 #### [address] [address] [address] [place], [place] Squamous Epithelial 0 - 2 Normal 3-5 [facility] Comment on above: Result Comment: . Performed By: #### C UA2 #### [address] [address] [address] [place], [place] Urobilinogen,Urine Normal Normal Normal (0-1) [facility] Comment on above: Result Comment: . Performed By: #### C UA2 #### [facility] [address] [place] [address] WBC LM.HPF (Urine sed) [#/Area] 26 - 50 Abnormal 0-5 [facility] Comment on above: Result Comment: . Performed By: #### C UA2 #### [facility] [address] [place] [address] Urinalysison 11-09-2019 Appearance (U) Clear Clear NA [place] Comment on above: . Bilirubin Urine Negative Negative mg/dL [place] Comment on above: . Color (U) Light-Yellow Lt. Yellow NA [place] Comment on above: . Glucose, Ur Normal Normal (<70) mg/dL [place] Comment on above: . Interpretation and review of laboratory results Abnormal [place] Ketones Ql (U) Negative Negative mg/dL [place] Comment on above: . LEUKOCYTES, UA 75 Abnormal Negative Kim/uL [place] Comment on above: . Mucous Threads Few Negative /[LPF] [place] Comment on above: . Nitrite, Urine Negative Negative NA [place] Comment on above: . Occult Blood,Urine Negative Negative mg/dL [place] Comment on above: . pH (U) 7.0 [pH] [place] Comment on above: . Protein (U) [Mass/Vol] 10 mg/dL Abnormal Negative [place] Comment on above: . RBC (U) [#/Vol] 3-5 Abnormal 0 - 2 /[HPF] [place], [place] Comment on above: . Specific Wall, Urine 1.011 [place] Comment on above: . Squam Epithel, UA 0-2 3 - 5 /[HPF] [place] Comment on above: . Urobilinogen, Urine Normal Normal ( 0-1) mg/dL [place] Comment on above: . WBC, UA 26-50 Abnormal 0 - 5 /[HPF] [place], [place] Comment on above: . Test Performed by [facility], [address] [place] [id number] [facility], [place] Op Noteon 10-01-2019 Op Note PreOp Dx BPH with obstruction, bladder calculi PostOp Dx Same Operation Cystoscopy, Transurethral resection of Prostate , evacuation of bladder calculi Surgeon Billy Mccarthy MD Assist None EBL 25ml Drains None Mehta 22fr [address] Specimen none Condition To PACU Indications This is a 59 y.o. pt who presents with BPH with obstruction. After a thorough discussion of his risks, benefits and treatment options he does wish to proceed forward with surgical intervention. Operation Patient was brought to the operating room. A thorough time out was performed and all present were in agreement. Patient was placed on OR table and anesthesia induced. Airways and lines were maintained by anesthesia team. Patient was placed into dorsal lithotomy position. Pressure points were padded. Prepped and draped in usual sterile fashion. A 21 fr ACMI cystourethroscope was inserted through the male urethra. The entire bladder was inspected using a 30 degree angled lens. There were multiple small bladder calculi. These were irrigated from the bladder. Next the cystourethroscope was exchanged for a continuous flow resectoscope sheath. This was placed using the guided obturator. Using thebipolar button, the prostate was resected carefully. This was begun starting at the bladder neck working distally to the verumontanum. Starting at the 6 o'clock position this was done to create a trough. Care was taken to avoid resection distally to the verumontanum to avoid injury to the external urethral sphincter. Next the bilateral lateral lobes were resected down to the prostatic capsule. Hemostasis was maintained during the procedure using the cautery function. Lastly the anterior tissue was resected down to the level of the prostatic capsule. After achieving hemostasis the bladder was irrigated and all cautery artifact and debris was evacuated from the bladder. On re-inspection, any bleeding was point cauterized until hemostasis was excellent. The resectoscope was withdrawn and a [address] catheter with 30 ml balloon was inserted. The bladder was irrigated and the urine found to be light pink/ clear. The patient will be admitted for observation. Normal [facility] Vital Signs Date Time Vital Sign Value Performing Clinician Facility 10-24-2024 14:31-0400 Body height 180.[address] Jeff Rosario DO Work Phone: [facility] 10-24-2024 14:31-0400 Body mass index (BMI) [Ratio] 24.7 kg/m2 Dr. Jeff Rosario DO Work Phone: [facility] 10-24-2024 14:31-0400 Body weight 80.[address] Jeff Rosario DO Work Phone: [facility] 10-24-2024 14:31-0400 Diastolic blood pressure 85 mm[Hg] Dr. Jeff Rosario DO Work Phone: [facility] 10-24-2024 14:31-0400 Heart rate 68 /min Dr. Jeff Rosario DO Work Phone: [facility] 10-24-2024 14:31-0400 Respiratory rate 16 /min Dr. Jeff Rosario DO Work Phone: [facility] 10-24-2024 14:31-0400 SaO2% (BldA) [Mass fraction] 94 % Dr. Jeff Rosario DO Work Phone: [facility] 10-24-2024 14:31-0400 Systolic blood pressure 127 mm[Hg] Dr. eJff Rosario DO Work Phone: [facility] 08-07-2024 14:08-0400 Body height 180.3 cm Roseline Meyer MD Work Phone: [facility] 08-07-2024 14:08-0400 Body mass index (BMI) [Ratio] 24.83 kg/m2 Roseline Meyer MD Work Phone: [facility] 08-07-2024 14:08-0400 Body temperature 97.59 [degF] Roseline Meyer MD Work Phone: [facility] 08-07-2024 14:08-0400 Body weight 80.74 kg Roseline Meyer MD Work Phone: [facility] 08-07-2024 14:08-0400 Heart rate 73 /min Roseline Meyer MD Work Phone: [facility] 08-07-2024 14:08-0400 SaO2% (BldA) [Mass fraction] 94 % Roseline Meyer MD Work Phone: [facility] 06-27-2024 10:44-0500 Body height 180.3 cm Laura Paiz [employer] SUPERVIS[employer]CE[employer] Work Phone: [facility] 06-27-2024 10:44-0500 Body mass index (BMI) [Ratio] 24.41 kg/m2 Laura Paiz [employer] TRAFF[employer] SUPER[employer] Work Phone: [facility] 06-27-2024 10:44-0500 Body temperature 97.11 [degF] Laura Paiz [employer] TRAFF[employer] SUPERVIS[employer] Work Phone: [facility] 06-27-2024 10:44-0500 Body weight 79.38 kg Laura Paiz [employer] TRAFF[employer] SUPERVISOR[employer] Work Phone: [facility] 06-27-2024 10:44-0500 Heart rate 93 /min Laura Paiz [employer] TRAFF[employer] SUPERVISOR[employer] Work Phone: [facility] 06-27-2024 10:44-0500 SaO2% (BldA) [Mass fraction] 96 % Laura Paiz [employer] TRAFFIC SUPERVISOR[employer] Work Phone: [facility] 05-31-2024 08:05-0500 Body height 180.3 cm Madi HERNANDEZ-C Work Phone: [facility] 05-31-2024 08:05-0500 Body mass index (BMI) [Ratio] 24.95 kg/m2 Madi Fuchs PA-C Work Phone: [facility] 05-31-2024 08:05-0500 Body temperature 98.29 [degF] Madi Venegasn PA-C Work Phone: [facility] 05-31-2024 08:05-0500 Body weight 81.15 kg Madi Venegasn PA-C Work Phone: [facility] 05-31-2024 08:05-0500 Diastolic blood pressure 84 mm[Hg] Madi Venegasn PA-C Work Phone: [facility] 05-31-2024 08:05-0500 Heart rate 86 /min Madi Venegasn PA-C Work Phone: [facility] 05-31-2024 08:05-0500 Respiratory rate 16 /min Madi Venegasn PA-C Work Phone: [facility] 05-31-2024 08:05-0500 SaO2% (BldA) [Mass fraction] 94 % Madi Venegasn PA-C Work Phone: [facility] 05-31-2024 08:05-0500 Systolic blood pressure 130 mm[Hg] Madi Venegasn PA-C Work Phone: [facility] 05-10-2024 09:44-0500 Body height 180.3 cm Roseline Meyer MD Work Phone: [facility] 05-10-2024 09:44-0500 Body mass index (BMI) [Ratio] 24.42 kg/m2 Roseline Meyer MD Work Phone: [facility] 05-10-2024 09:44-0500 Body weight 79.42 kg Roseline Meyer MD Work Phone: [facility] 03-05-2024 09:39-0400 Body height 180.3 cm Dipak Alberto MD Work Phone: [facility] 03-05-2024 09:39-0400 Body mass index (BMI) [Ratio] 24.83 kg/m2 Dipak Alberto MD Work Phone: [facility] 03-05-2024 09:39-0400 Body weight 80.74 kg Dipak Alberto MD Work Phone: [facility] 03-05-2024 09:39-0400 Diastolic blood pressure 93 mm[Hg] Dipak Alberto MD Work Phone: [facility] 03-05-2024 09:39-0400 Heart rate 89 /min Dipak Alberto MD Work Phone: [facility] 03-05-2024 09:39-0400 Systolic blood pressure 131 mm[Hg] Dipak Alberto MD Work Phone: [facility] 11-09-2019 13:01-0400 BP Diastolic 75 mm[Hg] [employer] [facility], [place] 11-09-2019 13:01-0400 BP Systolic 117 mm[Hg] [employer] [facility] 11-09-2019 13:01-0400 Pulse (Heart Rate) 80 /min [employer] [facility], [place] 11-09-2019 13:01-0400 Pulse Oximetry 99 % [employer] [facility] 11-09-2019 13:01-0400 Respiratory Rate 18 /min [employer] [facility], [place] 11-09-2019 10:15-0400 BMI (Body Mass Index) 23.71 kg/m2 [employer] [facility] [place], [place] 11-09-2019 10:15-0400 Body Temperature 98.1 [degF] [facility] [place] 11-09-2019 10:15-0400 Body weight 77.11 kg [employer] [facility], [place] 11-09-2019 10:15-0400 Height 180.3 cm [employer], [place] 10-02-2019 05:48-0400 Body Temperature 98.91 [degF] Billy Mccarthy [facility], [place] 10-02-2019 05:48-0400 BP Diastolic 75 mm[Hg] [facility] , [place] 10-02-2019 05:48-0400 BP Systolic 117 mm[Hg] [facility] [place] 10-02-2019 05:48-0400 Pulse (Heart Rate) 61 /min [facility] [place] 10-02-2019 05:48-0400 Pulse Oximetry 92 % [facility] , [place] 10-02-2019 05:48-0400 Respiratory Rate 18 /[facility] [place] 10-01-2019 09:39-0400 BMI (Body Mass Index) 25.8 kg/m2 [facility], [place] 10-01-2019 09:39-0400 Body weight 83.92 kg [facility] , [place] 10-01-2019 09:39-0400 Height 180.3 cm [facility] , [place] 09-27-2019 09:14-0400 BMI (Body Mass Index) 25.8 kg/m2 [facility], [place] 09-27-2019 09:14-0400 Body weight 83.92 kg [facility] , [place] 09-27-2019 09:14-0400 Height 180.3 cm [facility] , [place] Encounters Encounter Date Encounter Type Care Provider Facility Start: 12-19-2024 ambulatory Jeff Rosario Facility:[facility] Start: 10-24-2024 End: 10-24-2024 Patient encounter procedure Laura JUNIOR -[facility] Work Phone: Start: 10-24-2024 End: 10-24-[address] Jeff Rosario DO Work Phone: [facility] Work Phone: Start: 10-10-2024 ambulatory HILARY MARTINEZ DO Facility :[facility] Start: 09-10-2024 ambulatory SELF SELF Facility:[facility] Start: 08-19-2024 End: 09-16-2024 ambulatory [employer]PER[employer]CENA LAURA FIGUEROAMannie Facility:[facility] Start: 08-19-2024 End: 09-16-2024 Physical therapy management LAURA PAIZ [facility] Start: 08-13-2024 Encounter for genera l adult medical examination without abnormal findings Jeff Rosario [facility] Start: 08-07-2024 End: 08-18-2024 Postop follow up visit related to original px Roseline Meyer MD Work Phone: [facility] Comment on above: S/P lumbar discectom y (Primary Dx); Physical deconditioning Start: 08-07-2024 ambulatory SELF SELF Facility:[facility] Start: 08-03-2024 End: 08-03-[address] Jeff Rosario DO Work Phone: [facility] Work Phone: Start: 08-03-2024 End: 08-03-[address] Jeff Rosario DO -Laboratory Work Phone: Start: 08-03-2024 End: 08-03-2024 ambulatory Jeff Rosario Facility:[facility] Start: 06-27-2024 End: 06-27-2024 Postop follow up visit related to original px Laura Paiz [employer] TRAFF[employer] SUPERVISOR[employer]CENA Work Phone: [facility] Comment on above: S/P lumbar discectom y (Primary Dx) Start: 06-27-2024 ambulatory SELF SELF Facility:[facility] Start: 06-14-2024 End: 06-14-2024 ambulatory JEFF ROSARIO Facility:[facility] Start: 05-31-2024 ambulatory ROSELINE MEYER Facility:[facility] Start: 05-31-2024 End: 06-06-2024 Office consultation new/estab patient 80 min Madi Fuchs PA-C Work Phone: Pre-Procedure Evaluation and [facility] Comment on above: Preop exam for inter nal medicine (Primary Dx); Lumbar radiculopathy; TATE (obstructive sleep apnea); Hyperlipidemia, unspecified hyperlipidemia type; Essential hypertension, benign; Stage 3a chronic kidney disease; Hypophosphatemia; Prediabetes Start: 05-31-2024 End: 06-06-2024 Patient encounter status Madi Fuchs PA-C Work Phone: [facility] Start: 05-31-2024 ambulatory MADI FUCHS Faci lity:[facility] Start: 05-31-2024 Encounter for other preprocedural examination MADI FUCHS Facility:[facility] Start: 05-10-2024 ambulatory Jeff Abraham Facility:[facility] Start: 05-10-2024 End: 05-10-2024 Office consultation new/estab patient 60 min Roseline Meyer MD Work Phone: [facility] Comment on above: Low back pain with s ciatica, sciatica laterality unspecified, unspecified back pain laterality, unspecified chronicity (Primary Dx); Lumbar radiculopathy Start: 05-10-2024 ambulatory JEFF ABRAHAM Facility:[facility] Start: 05-10-2024 End: 05-10-2024 Subsequent hospital visit by physician Roseline Meyer MD Work Phone: [facility] Comment on above: Arrived Start: 04-26-2024 End: 04-26-[address] Pascual Davenport MD -[facility] Work Phone: Start: 04-26-2024 End: 04-26-2024 ambulatory Jeff Abraham Facility:[facility] Start: 04-19-2024 End: 04-19-[address] Pascual [facility]port [facility] Work Phone: Start: 04-19-2024 End: 04-19-2024 ambulatory Jeff Abraham Facility:[facility] Start: 04-16-2024 End: 04-16-[address] Pascual Davenport MD -[facility] Work Phone: Start: 04-16-2024 End: 04-16-2024 ambulatory Jeff Abraham Facility[facility] Start: 04-12-2024 Encounter for other preprocedural examination Pascual Davenport [facility] Start: 04-03-2024 End: 04-03-2024 [facility] Start: 03-29-2024 End: 03-29-[address] JEFF ROSARIO DO Facility:[facility] Start: 03-29-2024 End: 03-29-[address] JEFF ROSARIO DO [facility] Start: 03-28-2024 End: 03-28-2024 ambulatory Jeff Abraham Facility:[facility] Start: 03-21-2024 End: 03-21-2024 ambulatory Jeff Abraham Facility:[facility] Start: 03-12-2024 End: 03-14-2024 Telephone encounter Dipak Alberto MD Work Phone: Neurology Comment on above: Schedule Surgery Start: 03-05-2024 End: 03-05-2024 Patient encounter procedure Dipak Alberto MD Work Phone: [facility] Comment on above: Lumbar radiculopathy (Primary Dx) Start: 03-05-2024 End: 03-05-2024 ambulatory DIPAK ALBERTO Facility:[facility] Start: 03-05-2024 End: 03-05-2024 Subsequent hospital visit by physician Isaias Zelaya J1-4 Work Phone: Radiology Comment on above: 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] Start: 02-29-2024 End: 02-29-2024 ambulatory Jeff Abraham Facility[facility] Start: 02-02-2024 ambulatory Jeff Abraham Facility:[facility] Start: 02-01-2024 End: 02-01-2024 ambulatory Jeff Abraham Facility:[facility] Start: 01-19-2024 End: 01-19-2024 Chart abstracting Pasquale Rodríguez MD Work Phone: Neurology Start: 01-15-[address] JEFF WISEMAN LER DO Facility:[facility] Start: 12-27-2023 End: 03-14-[address] JEFF AGUIRRER DO Facility:[facility] Start: 12-27-2023 End: 03-14-[address] JEFF ROSARIO DO [facility] Start: 12-20-2023 End: 12-20-[address] JEFF AGUIRRER DO Facility:[facility] Start: 12-20-2023 End: 12-20-[address] JEFF ROSARIO DO [facility] Start: 01-27-2023 End: 03-17-2023 ambulatory ROSELINE EUGENE [employer]PERVIS[employer]CENA Facility:[facility] Start: 01-27-2023 End: 03-17-2023 Physical therapy management ROSELINE EUGENE [employer]PER[employer]NA [facility] Start: 01-16-2023 End: 01-16-2023 ambulatory ROSELINE EUGENE [employer]PERVIS[employer]CENA Facility:[facility] Start: 01-16-2023 End: 01-16-2023 Patient encounter procedure ROSELINE EUGENE [employer] SUPER[employer]CENA [facility] Start: 01-13-2023 End: 01-13-2023 ambulatory [facility] Work Phone: Start: 01-13-2023 End: 01-13-2023 Patient encounter procedure [facility] Work Phone: Start: 10-03-2022 End: 10-03-[address] SHREYAS HIGGINS MD [facility] Start: 09-26-2022 End: 09-26-2022 ambulatory [facility] Work Phone: Start: 09-26-2022 End: 09-26-2022 Patient encounter procedure [facility]-Cat Scan, [facility] Start: 11-20-2021 End: 11-20-[address] JEFF ROSARIO DO [facility] Start: 11-15-2021 End: 11-15-[address] YENNI CORREA DO [facility] Start: 03-16-2021 End: 03-16-2021 Patient encounter procedure APARNA Albarado GABRIELA CENA [facility] Start: 11-09-2019 End: 11-09-2019 Emergency department patient visit Wu Luciana Porras Work Phone: [facility] Emergency Dept Comment on above: Acute urinary retent ion (Primary Dx) Start: 10-01-2019 End: 10-02-2019 Subsequent hospital visit by physician Billy Mccarthy Work Phone: [facility] Comment on above: Arrived Start: 09-27-2019 End: 09-27-2019 Subsequent hospital visit by physician Billy Mccarthy Work Phone: [facility] Pre-Admit [facility] Comment on above: Arrived Start: 12-01-2016 Ambulatory KAIT Chowdhury SAM Facility :[facility] Procedures Date Procedure Procedure Detail Performing Clinician Start: 08-03-2024 Prostate specific an tigen measurement Dr. Jeff Rosario DO Work Phone: Comment on above: This test was perfor med using the [employer] tPSA method. Measured values of a patient sample can vary depending on the testing procedure used. PSA values determined on patient samples by different testing procedures cannot be used interchangeably. If there is a change in PSA assays while monitoring therapy, sequential testing should be performed to confirm baseline values. Start: 05-31-2024 Antibody screen Jeannine Fuchs PA-C Work Phone: Start: 05-31-2024 Antibody screen [facility] Comment on above: Performed By: #### L [id number], PTI #### [facility] ([facility]) [address] [address] Start: 05-31-2024 CBC AND ELECTRONIC DIFF Madi Venegasn PA-C Work Phone: Start: 05-31-2024 Complete blood count with white cell differential, automated Madi Venegasn PA-C Work Phone: Start: 05-31-2024 EXTRA LIGHT BLUE TOP Vi ctoria Tyson RauschJef PA-C Work Phone: Start: 05-31-2024 Hemoglobin glycosylated a1c Madi Rauschawan PA-C Work Phone: Start: 05-31-2024 PTT WITH MIXING STUDY V icttri Mehta Jef PA-C Work Phone: Start: 05-31-2024 End: 05-31-2024 Drug tst prsmv instrmnt chem analyzers pr date Madi Rauschawan PA-C Work Phone: Start: 05-31-2024 EXTRA MICRO Madi Mehta Jef PA-C Work Phone: Start: 05-31-2024 EXTRA TUBES Madi Mehta Jef PA-C Work Phone: Start: 05-31-2024 EXTRA URINE Madi Rauschawan PA-C Work Phone: Start: 05-31-2024 Iadna s aureus ampli fied probe tq Madi Tyson Jef PA-C Work Phone: Start: 05-31-2024 URINALYSIS REFLEX TO CULTURE Madi Tyson Jef PA-C Work Phone: Start: 05-31-2024 PREPARE TO TRANSFUSE OR RED BLOOD CELLS Madi Tyson RauschJef PA-C Work Phone: Start: 05-10-2024 Radex spine lumbosac ral minimum 4 views Roseline Meyer MD Work Phone: Start: 04-19-2024 MRI of lumbar spine Dr. Jeff Rosario DO Work Phone: Start: 03-05-2024 Radex spine lumbosac ral minimum 4 views Lalo Covarrubias PA-C Work Phone: Start: 01-13-2023 CT of face Start: 09-26-2022 CT of face Start: 04-14-[address] SHREYAS HIGGINS MD Start: 11-09-2019 Basic metabolic pane l calcium total [facility] Work Phone: Start: 11-09-2019 Urnls dip stick/tabl et rgnt auto w/o microscopy [facility] Work Phone: Start: 10-01-2019 OPERATIVE REPORT 3m Sca nning Back structure, excl uding neck (body structure) APARNA OCHOA CENA Cholecystectomy APARNA GIANG CENA History of transuret hral prostatectomy S/P TURP Intervertebral disc prolapse (disorder) APARNA OCHOA CENA Neoplasm of neck (disorder) APARNA OCHOA CENA Plan of Treatment Date Care Activity Detail Author Start: 01-02-2036 RSV Vaccine (1 - 1-d ose 75+ series) RSV Vaccine (1 - 1-dose 75+ series) [facility] Start: 09-10-2024 End: 09-10-2024 Telemedicine consultation with patient 09/10/2024 10:00 AM EDT Telemedicine Spine Care Outpatient Care [facility] [address] [place] [address] Roseline Meyer MD [address] [place] [address] Spine Care Outpatient Care [facility] Start: 08-07-2024 End: 08-07-2024 Patient encounter procedure 08/07/2024 2:15 PM EDT Office Visit Sp[facility] Outpatient Care [address] [address] Roseline Meyer MD [address] [place] [phone] Spine Care Outpatient Care [facility] Start: 06-28-2024 End: 06-28-2024 Patient encounter procedure 06/28/2024 9:30 AM EST Office Visit Spine Care Outpatient [facility] [address] [place] [phone] Laura Paiz APRN-CENA [address] [place] [phone] Spine Care Outpatient Care [facility] Start: 06-15-2024 End: 06-15-2024 Patient encounter procedure 06/15/2024 9:50 AM EST Appointment [facility] [address] [place], [place] [id number] Roseline Meyer MD [address] [place] [address] [facility] Start: 06-14-2024 End: 06-14-2024 Admission to same day surgery center 06/14/2024 2:33 PM EST - 06/14/2024 5:18 PM EST Surgery [facility] [address] [place] [phone] Roseline Meyer MD [address] [place] [address] DECOMPRESSION LAMINOTOMY W/ EXCISION INTERVERTEBRAL DISC LUMBAR ENDOSCOPIC [facility] Comment on above: DECOMPRESSION LAMINO YARA W/ EXCISION INTERVERTEBRAL DISC LUMBAR ENDOSCOPIC Start: 06-14-2024 End: 06-14-2024 Lamnotmy incl w/dcmprsn nrv root 1 intrspc lumbr DECOMPRESSION LAMINOTOMY W/ EXCISION INTERVERTEBRAL DISC LUMBAR ENDOSCOPIC Spinal stenosis of lumbar region with neurogenic claudication 06/14/2024 2:33 PM EST [facility] Start: 06-14-2024 Subsequent hospital visit by physician 06/14/2024 2:33 PM EST Hospital Encounter [facility] [address] [place] [phone] Roseline Meyer MD [address] [place] [phone] Spinal stenosis of lumbar region with neurogenic claudication [facility] Comment on above: Spinal stenosis of l umbar region with neurogenic claudication Start: 05-10-2024 End: 05-10-2025 MR Lumbar spine W contrast IV MRI SPINE LUMBAR WITH CONTRAST Imaging Routine Lumbar radiculopathy Expected: 05/10/2024, Expires: 05/10/2025 [facility] Comment on above: Expected: 05/10/2024 , Expires: 05/10/2025 Start: 01-21-2024 Covid-19 Vaccine ( season) Covid-19 Vaccine () [facility] Start: 01-21-2024 Influenza vaccination Influenza Vacc ine (#1) [facility] Start: 01-20-2023 Covid-19 Vaccine ( season) Covid-19 Vaccine ( season) [facility] Start: 11-08-2022 Diabetes Screening Diabetes Screenin g [facility] Start: 2021 RSV Vaccine (1 - 1-d ose 60+ series) RSV Vaccine (1 - 1-dose 60+ series) [facility] Start: 12-04-2019 End: 12-04-2019 Office Visit 12/04/2019 Office Visit Urology Marianne Shoemaker PA-C [address] [place] [address] [phone] [facility] Start: 11-14-2019 End: 11-14-2019 Virtual Visit 11/14/2019 Virtual Visit Urology Billy Mccarthy MD [address] [place] [address] [phone] [facility] [place] Start: 10-01-2019 End: 10-01-2019 Appointment 10/01/2019 Appointment General Surgery Billy Mccarthy MD [address] [place] [address] [phone] [facility] General Surgery Start: 01-02-2016 Prostate specific antigen measurement Prostate Cancer Screening Discussion [facility] Start: 2011 Screening for malign ant neoplasm of colon Colon cancer screen colonoscopy [place], [place] Start: 2011 Shingles Vaccine (1 of 2) Shingles Vaccine (1 of 2) [place] Start: 2006 Screening for malign ant neoplasm of colon [facility] Start: 2001 Diabetes screen Diabetes screen [place], [place] Start: 2001 Lipid panel [facility] Start: 01-02-1996 Lipid panel Lipid Screening [facility] Start: 01-02-1980 DTaP/Tdap/Td vaccine (1 - Tdap) DTaP/Tdap/Td vaccine (1 - Tdap) [place] Start: 01-02-1980 Pneumococcal vaccination PNEUM OCOCCAL VACCINE SERIES (1 of 2 - PCV) [facility] Start: 01-02-1980 Third diphtheria, tetanus and acellular pertussis (DTaP) vaccination TDAP (ADULT) [facility] Start: 01-02-1980 Urine microalbumin profile DTaP,Tdap,Td Vaccine (1 - Tdap) [facility] Start: 1979 Anxiety Screening Anxiety Screening [facility] Start: 1979 Depression Screening Depression Scre [facility] Start: 1979 Hepatitis C screening Hepatitis C [facility] Start: 1979 HIV screening HIV Screening [facility] Start: 01-02-1976 HIV screening [facility] Start: 1967 Pneumococcal 0-64 ye ars Vaccine (1 of 1 - PPSV23) Pneumococcal 0-64 years Vaccine (1 of 1 - PPSV23) [place], [place] Start: 1967 PNEUMOCOCCAL VACCINE SERIES (1 of 2 - PCV) PNEUMOCOCCAL VACCINE SERIES (1 of 2 - PCV) [facility] Start: 1961 Hepatitis C screening [facility] Start: 1961 Tetanus vaccination TETANUS [facility] End: 11-09-2019 Culture, Urine Culture, Urine Microbiology STAT One Time for 1 Occurrences starting 11/09/2019 until 11/09/2019 [facility] Comment on above: One Time for 1 Occur rences starting 11/09/2019 until 11/09/2019 Culture, Urine Culture, Urine Microbiology STAT 11/09/2019 11:06 AM EDT [facility] Initiate Oxygen Ther apy Protocol Initiate Oxygen Therapy Protocol Respiratory Care Routine Daily until discontinued starting 10/01/2019 [facility] Comment on above: Daily until disconti nued starting 10/01/2019 Lamnotmy incl w/dcmp rsn nrv root 1 intrspc lumbr DECOMPRESSION LAMINOTOMY W/ EXCISION INTERVERTEBRAL DISC LUMBAR ENDOSCOPIC Spinal stenosis of lumbar region with neurogenic claudication [facility] End: 02-17-2025 XR Lumbar spine Views W flexion and W extension XR LUMBAR MOTION 4V AP/LAT/ FLEX/EXT Radiology Routine Lumbar foraminal stenosis 1 Occurrences starting 01/19/2024 until 02/17/2025 [facility] Work Phone: Comment on above: 1 Occurrences starti ng 01/19/2024 until 02/17/2025 Immunizations Immunization Date Immunization Notes Care Provider [facility] 03-14-2024 influenza, injectabl e, quadrivalent, contains preservative; Translations: [Fluarix PF Prefilled Syringe ] DR JEFF ROSARIO DO [facility] 03-02-2023 influenza, injectabl e, quadrivalent, contains preservative; Translations: [Fluarix PF Quadrivalent ] ROSELINE EUGENE [employer]PERVISOR-CENA [facility] 03-02-2023 influenza virus vaccine, unspecified formulation Pasquale Rodríguez MD Work Phone: [facility] 07-15-2022 zoster vaccine recombinant; Translations: [Shingrix] DR SHREYAS HIGGINS MD [facility] Comment on above: Result Comment: Seco nd vial LOT # [id number] Exp: 10/10/2023 03-23-2022 zoster vaccine recombinant; Translations: [Shingrix] DR SHREYAS HIGGINS MD [facility] 03-01-2022 influenza, injectabl e, quadrivalent, contains preservative; Translations: [Fluarix PF Quadrivalent ] DR SHREYAS HIGGINS MD [facility] 09-23-2021 COVID-19, mRNA, LNP- S, PF, 30 mcg/0.3 mL dose; Translations: [O2 [place] COVID-19 Vaccine (Do Not Dilute)] DR YENNI CORREA DO [facility] 02-25-2021 influenza, injectabl e, quadrivalent, contains preservative; Translations: [Fluarix PF Quadrivalent ] APARNA OCHOA CNP [facility] 08-25-2020 Covid (Pfizer) [facility] 08-04-2020 Covid (Pfizer) [facility] Comment on above: Result Comment: 2021: [id number] 03-16-2020 influenza, injectabl e, quadrivalent, preservative free; Translations: [Fluarix PF Quadrivalent ] APARNA OCHOA CNP [facility] 02-15-2019 influenza, injectabl e, quadrivalent, preservative free; Translations: [Fluarix PF Quadrivalent ] APARNA OCHOA CNP [facility] 03-05-2018 influenza virus vaccine, unspecified formulation DR JEFF ROSARIO DO [facility] 03-15-2017 influenza virus vaccine, unspecified formulation DR JEFF ROSARIO DO [facility] Payers Date Payer Category Payer Private Health Insurance [id number] 2024 Managed Care (unspecified) [employer] [id number] 2024 Unknown [id number] 2024 Self-pay [id number] 2023 Private Health Insurance [id number] 2022 Private Health Insurance [id number] 2019 Unknown [facility] [place] [facility] xxxxxxxxxxxxx 2019-Present [phone] [address] [place] [id number] xxxxxxxxxxxxx [id number] 2013 Unknown [facility] [id number] 1961 Unknown [id number] 2.16.840.1.305786.3.579.2. 627 1961 Unknown [id number] ..840.1.325883.3.579.2. 627 1961 Unknown [id number] 2.16.840.1.943809.3.579.2. 627 1961 Unknown [id number] 2.16.840.1.786092.3.579.2. 627 1961 Unknown [id number] 2.16.840.1.442585.3.579.2. 627 1961 Unknown [id number] 2.16.840.1.972200.3.579.2. 627 1961 Unknown [id number] 2.16.840.1.576910.3.579.2. 627 1961 Unknown [id number] 2.840.1.320309.3.579.2. 627 1961 Unknown [id number] 2.840.1.149177.3.579.2. 594 1961 Unknown [id number] 2..840.1.748955.3.579.2. 594 1961 Unknown [id number] 2..840.1.361236.3.579.2. 594 1961 Unknown [id number] 2.840.1.084053.3.579.2. 594 1961 Unknown [id number] 2.840.1.452788.3.579.2. 594 1961 Unknown [id number] 2.840.1.575110.3.579.2. 594 1961 Unknown [id number] 2..840.1.280654.3.579.2. 594 1961 Unknown [id number] 2.840.1.107444.3.579.2. [address] [facility] [id number] Unknown [id number] 2.16.840.1.159323.3.579.2. 462 Unknown [id number] 2.16.840.1.648022.3.579.2. 462 Unknown [id number] 2.16.840.1.179203.3.579.2. 462 Unknown [id number] 2.16.840.1.143049.3.579.2. 462 Unknown [id number] 2.16.840.1.345407.3.579.2. 462 Unknown [id number] 2.16.840.1.410036.3.579.2. 462 Unknown [id number] 2.16.840.1.547817.3.579.2. 462 Unknown [id number] 2.16.840.1.957904.3.579.2. 462 Unknown [id number] 2.16.840.1.073123.3.579.2. 462 Unknown [id number] 2.16.840.1.635103.3.579.2. 462 Unknown [id number] 2.16.840.1.408655.3.579.2. 462 Unknown [id number] 2.16.840.1.184224.3.579.2. 462 Unknown [id number] 2.16.840.1.095037.3.579.2. 462 Unknown [id number] 2.16840.1.662325.3.579.2. 462 Unknown [id number] 2.16840.1.195291.3.579.2. 462 Social History Date Type Detail Facility Start: 10-01-2019 End: 11-06-2019 Tobacco smoking status NHIS Current every day smoker [place], [place] History of tobacco use Cigar Sm[place] Start: 10-01-2019 End: 03-05-2024 Alcohol intake Current drinker of alcohol (finding) [place] Start: 09-27-2019 Tobacco Comment 2 A WEEK [place], [place] Start: 09-27-2019 Alcohol Comment WHISKEY 1 DAILY [facility] Start: 1960 Sex Assigned At Not on file [facility] Exposure to SARS-CoV -2 (event) Unable to assess Eboni [facility] Start: 02-15-2019 End: 10-24-2024 Occasional tobacco smoker (finding) [facility] Start: 1960 Sex Assigned At Male A [facility] Start: 04-22-2021 Tobacco smoking stat us ARIS Unknown if ever smoked [facility] Start: 10-09-2019 None [facility] Start: 10-15-2019 Spouse/ Signif icant Other [facility] Start: 03-21-2012 End: 03-05-2024 Tobacco smoking status NHIS Never smoked tobacco [facility] History of tobacco use Passive smoker [facility] Start: 03-21-2012 End: 06-14-2024 Tobacco use and exposure Smokeless tobacco non-user [facility] Start: 12-18-2019 End: 08-07-2024 History of Social function [facility] Start: 12-18-2019 End: 08-07-2024 Tobacco use panel [facility] National Score (1-10 0), lower number is lower risk Not on file [facility] Start: 03-21-2012 End: 03-05-2024 Tobacco Comment 3 CIGARS WEEKLY [facility] Start: 11-28-2014 Alcohol Comment social- 1 oz per nig ht [facility] Start: 05-11-2024 Gender identity Identifies as male gender (finding) [facility] Start: 05-11-2024 Sexual orientation Heterosexual (mariaa stafford) [facility] Start: 06-27-2024 End: 08-07-2024 Alcoholic beverage intake Lifetime non-drinker (finding) [facility] Start: 03-29-2014 End: 08-13-2024 Sex Male (finding) [facility] Sexual Orientation [facility] Functional Status Date Assessment Result Facility 12-27-2023 Functional Status Home Living Ad ditional Information Objective: Observation: maintains LLE in slightly flexed position to avoid neural tension. Tends to off shift weight to R Cardiovascular screen: BP:120/82, O2 at: 93% HR: 73 bpm Sensation: Grossly intact and symmetrical light touch. Reflexes: Quads R: 1+ L: 1+ Achilles R: 1+ L: 1+ Able to stand on toes: unable to stand on heels due to pain. Gait: antalgic gait on the L, mild lateral shift L Flexibility: Limited LLE neural mobility + slump test through only part range to avoid notable increase in symptoms. Trunk AROM: flex: major loss, Ext: mod loss, Repeated motion testing: Standing extension and prone lying/prop reduced/centralized symptoms with some pain during movement. [facility] Clinical Notes 01-04-2023 to 10-24-2024 Note Date & Type Note Facility 10-24-2024 Progress note [facility] 10-24-2024 Progress note Note Date/Time October 24, 2024 2:58pm [facility] G[facility] [address] [place] [address] OFFICE VISIT Date of Service: 10/24/24 MR#: [id number] Acct: [id number] Name: DORIAN CLAUDIO Rep #: [id number] : 1960 Provider: SANDI Ornelas Age/Sex: 64/M Location[facility] Status: Signed Intake Vital Signs 04/03/24 12:01 10/24/24 14:31 Height 5 ft 11 in 5 ft 11 in Weight: 177 lb 4 oz BMI 24.7 BP 127/85 H Respiration 16 Pulse 68 Pulse Oximetry (%) 94 Oxygen Delivery Method room air Intake Visit Reasons: Pre Colon Chief Complaint: screening colonoscopy Allergies gabapentin Adverse Reaction (Verified 10/24/24 14:27) Other NSAIDS (Non-Steroidal Anti-Inflamma Adverse Reaction (Verified 10/24/24 14:27) STAGE 3 KIDNEY DISEASE Medications ?Medication ?Instructions ?Recorded ?Confirmed ?Type fenofibrate 160 mg tablet 160 mg PO DAILY 10/11/1910/13 History amlodipine 5 mg tablet 5 mg PO DAILY 03/20/2410/24 History multivitamin 1 tab PO QDAY 10/24/2410/24 History sod picosulf 10 mg-magnes 3.5 175 ml PO .COMPLEX 1 dos e #350 mL 10/24/24 10/24/24 Rx gram-citric 12 gram/175 mL oral solution (Clenpiq) [facility] Medical History History of steroid therapy Arthritis Back pain Numbness and tingling History of pain when walking Hypertension History of echocardiogram History of stress test Fatigue Family history of coronary artery disease Wears glasses Wears contact lenses Alcohol use Prostate disease History of renal disease High cholesterol Smoker CPAP (continuous positive airway pressure) dependence Cardiology follow-up encounter Hypertriglyceridemia GERD (gastroesophageal reflux disease) TATE on CPAP BPH (benign prostatic hyperplasia) Stage III chronic kidney disease Surgical History Hx of neck surgery History of transurethral resection of prostate History of back surgery History of cholecystectomy Family History Father Atrial fibrillation Cardiac pacemaker in situ Grandfather CAD (coronary artery disease) Myocardial infarction, Onset Age: 55 Social History household members: spouse Smoking Status: Current some day smoker tobacco type: cigars alcohol intake: current alcohol intake frequency: 0-2 drinks per day Alcohol type: wine substance use type: does not use caffeine: Yes Type: coffee Number of servings: 2 HPI HPI Chief Complaint: screening colonoscopy Details: DORIAN CLAUDIO, is a 64 M who presents to the office today for - denies any any family h/o colon CA - screening colon 10 years ago - denies any change in bowel habits or weight loss - denies any HB, N/V - denies any heart or lung disease ROS Const Constitutional: No fatigue, fever(s) or weight change ENT ENT: No difficulty swallowing Gastro GI: No abdominal pain, belching, bloating, change in bowel habits, change in stool character, coffee ground emesis, constipation, cramping, diarrhea, heartburn, difficulty swallowing, feeling full early, excessive flatus, incontinent of stools, Vomiting blood/hematemesis, Blood in stool, loose stools,Black,tarry stools, nausea/dyspepsia, pain with swallowing, vomiting or other Musc Musculoskeletal: No joint pain Skin Skin: No yellowing of the eye or itchy eyes Psych Psychiatric: No anxiety and No depression Endo Endocrine: No fatigue or weight change Aller/Imm Allergy/Immunologic: No itchy eyes Dexter/Lymp Hematologic/Lymphatic: No easy bleeding or easy bruising Exam Const General: cooperative, healthy appearing, no acute distress and well developed Nutritional Appearance: average body habitus and well nourished Orientation: alert and oriented x3 [facility] Head: normocephalic Ears: hearing grossly normal bilaterally Mouth: moist mucous membranes Teeth and gingiva: dentition normal Eyes Conjunctivae: conjunctivae normal Sclera: sclerae normal Neck Neck: normal visual inspection, full ROM and trachea midline Resp Effort & Inspection: normal respiratory effort, able to speak in complete sentences and symmetric chest movement Auscultation: Bilateral: Clear to Auscultation Cardio Rate: regular rate Rhythm: regular rhythm GI Inspection: normal to inspection Auscultation: normal bowel sounds Palpation: soft and no hepatosplenomegaly Rectal Exam: deferred Skin General: no rashes or lesions noted and turgor normal Neuro General: patient alert and patient oriented x3 Cranial Nerves: other (CN's grossly intact, non-focal exam) Cognition: normal cognition Speech: speech normal Gait: normal gait Extrem General: normal to inspection (no edema noted) Psych Appearance: grossly normal and well kempt Affect: normal affect Attitude: cooperative Thought Process: normal Assessment and Plan Assessment and Plan (1) Encounter for screening colonoscopy: Status: Acute Medications: New sod picosulf-mag ox-citric ac 10 mg-3.5 gram- 12 gram/175 mL (Clenpiq) 175 mLorally; as directed for split dose bowel prep 350 mL 0RF Plan 64y/o male presents for consultation for age related screening colonoscopy. He reports colonoscopy was unremarkable 10 years ago. He denies any gastrointestinal symptoms or family history of colon cancer. I have scheduled him for a colonoscopy. Patient Instructions: Colonoscopy - Clenpiq Coding Level of Care Code Off vis,new,level 3 Diagnoses Encounter for screening colonoscopy Z12.11 Clinical Quality Measures Smoking Screening Smoking Status: Current some day smoker Tobacco counseling given: Smoking cessation education 10/24/24 3555 <Electronically signed by Laura JUNIOR> Date _ Laura Ornelas SEXUAL ABUSE COUNSELLOR-C Cosigner Signature: Date (if applicable) CC: ~ [facility] Work Phone: [phone] History of Present illness Narrative* Roseline Meyer MD - 08/07/2024 2:15 PM EDT Chief Complaint / Reason for Visit : follow up HPI: Dorian Claudio returns. He was last seen on 06/27/2024 by Laura Paiz, CENA status post left L4-5 microdisectomy on 06/14/2024. He is 90% improved from preop. Has intermittent left dorsal foot n/t. No hand dexterity issues. No bowel or bladder issues. No gait issues. No fevers or chills. H/o left L4-5 endoscopic decompression 03/2024, elsewhere, right L5-S1 microdecompression 12 years ago, elsewhere. 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 Medications: Outpatient Medications Prior to Visit Medication Sig Dispense Refill amLODIPine 5 MG tablet Take 1 tablet by mouth daily every morning. fenofibrate 160 MG tablet Take 1 tablet by mouth daily every morning. therapeutic multivitamin-minerals tablet Take 1 tablet by mouth daily every morning. No facility-administered medications prior to visit. Physical Exam: General: Vitals: 08/07/24 1408 Pulse: 73 Temp: 97.6 degrees F (36.4 degrees C) TempSrc: Infrared SpO2: 94% Weight: 80.7 kg (178 lb) Height: 1.803 m (5' 11) No acute distress Psych: A+Ox3 Gait: Improved gait pattern Able to heel and toe walk Peripheral Vascular: LE swelling No Fingers/toes warm, well perfused. DP/PT palpable, capillary refill < 2 seconds Skin: Lesions on Skin No Spine: Incision well healed No tenderness throughout lumbar spine Neuro: Lower extremity (R/L): hip flexors R 5/5, L 5/5, quadriceps R 5/5, L 5/5, anterior tibialis R 5/5, L 5/5, hamstrings R 5/5, L 5/5, gastrocsoleus R 5/5, L 5/5. Reflexes (R/L): biceps R +2 / L +2, triceps R +2 / L +2, brachioradialis R +2 / L +2, patellar R +2/ L +2, Achilles deep tendon R +2 / L +2. Clonus (R/L): 0/0 Negative bilateral upper extremities Hoffmans Babinksi (R/L): -/- Straight leg raise (R/L): -/- Sensation to light touch in the upper and lower extremities are intact except diminished sensation to light touch dorsum L foot. Imaging Independent review None new Clinical impression: status post left L4-5 microdisectomy on 06/14/2024 Plan: Mr. Claudio is doing well. Recommend increasing activities as tolerated. Provided physical therapy. Follow up in 6 weeks via video telehealth or sooner if issues arise. Plan of care discussed. All questions answered. He is in understanding. * Laura Paiz APRN-CENA - 08/07/2024 2:15 PM EDT [facility] Othopedic Spine HISTORY OF PRESENT ILLNESS Chief Complaint: Dorian Claudio present today s/p L4-5 micro-discectomy with Dr. Meyer on 06/14/2024 for left L4-5 paracentral disc protrusion and left L5 radiculopathy with h/o left L4-5 endoscopic decompression nd h/o right micro-decompression 12 years ago. Patient present alone today for two week post operative visit. Patient reporting if he sneezes and back is straight, he gets shooting pain into left buttock. Has residual left foot tingling (left dorsum lateral) which comes on when he lies down in bed and when walking around. Reports had some return of symptoms but prescribed medrol dose pack resolved symptoms completely for several days. Reports he is back at work with modifications; asking about starting PT. Notes the new symptoms reported at two week appointment: bilateral buttocks (soreness) has improvedand the transient left LE paresthesia has resolved (except volar lateral foot). Percent improvement in symptoms: 90 Work: has standing desk option No past medical history on file. Pain management: NA Smoking: NA Numbess/tingling: left dorsum of foot Patient denies bowel or bladder incontinence; denies saddle paresthesia. Patient denies calf pain. PT: NA PHYSICAL EXAMINATION Physical Examination: Pulse 73 Temp 97.6 F (36.4 C) (Infrared) Ht 1.803 m (5' 11) Wt 80.7 kg (178 lb) SpO2 94% BMI 24.83 kg/m Smoking Status Some Days Lower Extremity MMT: Hip Flex Knee EXT Ankle DF EHL Ankle PF Knee FLEX Hip EXT Right 5/5 5/5 5/5 5/5 5/5 5/5 5/5 Left 5/5 5/5 5/5 5/5 5/5 5/5 5/5 Reflexes: 2/4 knee reflexes 2/4 ankle reflexes Ankle clonus: none Tone: normal Speech and affect were clear and appropriate. Sensation: intact to light touch over BLE. Seated SLR: Right: negative, Left: negative Patient had a normal gait and was able to heel and toe walk showing good strength. Incision: On physical exam, surgical incision is clean, dry, and intact with edges well-approximated without signs of infection, dehiscence, fluid collection, or necrosis ASSESSMENT: 1. s/p L4-5 micro-dis[address] Dr[address] Meyer on 06/14/2024 2. Transient left buttock and left foot paresthesia (overall improved since two week post operativevisit) PLAN 1. Follow up with Dr. Meyer for 3 month post operative visit via tele-health 2. Start Physical Therapy locally (referral provided and will send patient copy of [facility] spine surgery rehabilitation guidelines for his reference) 3. I discussed proper posture and body mechanics in detail with patient today Total [id number] time spent with the patient today was 20 minutes, spent in discussion with patient on post-operative symptoms, care, return to activities, available treatment options, and outlining a specific treatment plan. All questions answered. The patient understood and agreed with the plans discussed and noted. Laura Paiz APRN, CNP Department of Orthopedics [facility] PMH: No past medical history on file. PSH: Past Surgical History: Procedure Laterality Date DECOMPRESSION LAMINOTOMY W/ EXCISION INTERVERTEBRAL DISC LUMBAR ENDOSCOPIC Midline 06/14/2024 Laterality: Midline; Surgeon: Roseline Meyer MD; Location: [facility] MAIN OR Current Medications: Current Outpatient Medications: amLODIPine 5 MG tablet, Take 1 tablet by mouth daily every morning., Disp: , Rfl: fenofibrate 160 MG tablet, Take 1 tablet by mouth daily every morning., Disp: , Rfl: therapeutic multivitamin-minerals tablet, Take 1 tablet by mouth daily every morning., Disp: , Rfl: Allergies: Nsaids, Gabapentin, and Ibuprofen Family History: History reviewed. No pertinent [facility] history. [facility] of Present illness Narrative* CRISTINE Welsh - 06/27/2024 11:30 AM EST Images from the original note were not included. [facility] HISTORY OF PRESENT ILLNESS Chief Complaint: Dorian Claudio present today s/p L4-5 micro-discectomy with Dr. Meyer on 06/14/2024 for left L4-5 paracentral disc protrusion and left L5 radiculopathy with h/o left L4-5 endoscopic decompression nd h/o right micro-decompression 12 years ago. Patient present alone today for two week post operative visit. Reports had some return of symptoms but prescribed medrol dose pack resolved symptoms completely for several days. Reports he is back at work with modifications. Notes new symptoms in bilateral buttocks (soreness) which is worse with sitting. Has some transientleft LE paresthesia. Percent improvement in symptoms: 70 Work: has standing desk option No past medical history on file. Pain management: NA Smoking: NA Numbess/tingling: left dorsum of foot Patient denies bowel or bladder incontinence; denies saddle paresthesia. Patient denies calf pain. PT: NA PHYSICAL EXAMINATION Physical Examination: Pulse 93 Temp 97.1 F (36.2 C) (Infrared) Ht 1.803 m (5' 11) Wt 79.4 kg (175 lb) SpO2 96% BMI 24.41 kg/m Smoking Status Some Days Lower Extremity MMT: Hip Flex Knee EXT Ankle DF EHL Ankle PF Knee FLEX Hip EXT Right 5/5 5/5 5/5 5/5 5/5 5/5 5/5 Left 5/5 5/5 5/5 5/5 5/5 5/5 5/5 Reflexes: 2/4 knee reflexes 2/4 ankle reflexes Ankle clonus: none Tone: normal Speech and affect were clear and appropriate. Sensation: intact to light touch over BLE. Seated SLR: Right: negative, Left: negative Patient had a normal gait and was able to heel and toe walk showing good strength. Incision: On physical exam, surgical incision is clean, dry, and intact with edges well-approximated without signs of infection, dehiscence, fluid collection, or necrosis ASSESSMENT: 1. s/p L4-5 micro-discectomy [address] Dr[address] Meyer on 06/14/2024 2. Bilateral buttock soreness, left LE transient paresthesia PLAN 1. Follow up with Dr. Meyer as planned for 6 week post operative visit, no XOA 2. Educated on continued spine precautions, may shower (avoid direct stream for another week), no tub soaks 3. I discussed proper posture and body mechanics in detail with patient today 4. As patient is not able to take NSAID's, encourage higher dosage acetaminophen (500 or 650 mg- 2 tablets every 8 hours for joint pain management) Total [id number] time spent with the patient today was 20 minutes, spent in discussion with patient on post-operative symptoms, care, return to activities, available treatment options, and outlining a specific treatment plan. All questions answered. The patient understood and agreed with the plans discussed and noted. Laura Paiz APRN, KVNG Department of Orthopedics [facility] PMH: No past medical history on file. PSH: Past Surgical History: Procedure Laterality Date DECOMPRESSION LAMINOTOMY W/ EXCISION INTERVERTEBRAL DISC LUMBAR ENDOSCOPIC Midline 06/14/2024 Laterality: Midline; Surgeon: Roseline Meyer MD; Location: [facility] MAIN OR Current Medications: Current Outpatient Medications: acetaminophen 500 MG tablet, Take 2 tablets by mouth every 6 hours as needed for Mild Pain for up to 14 days., Disp: 112 tablet, Rfl: 0 amLODIPine 5 MG tablet, Take 1 tablet by mouth daily every morning., Disp: , Rfl: fenofibrate 160 MG tablet, Take 1 tablet by mouth daily every morning., Disp: , Rfl: methylPREDNIsolone 4 MG Tab Therapy Pack tablet, follow package directions, Disp: 21 tablet, Rfl: 0 therapeutic multivitamin-minerals tablet, Take 1 tablet by mouth daily every morning., Disp: , Rfl: Cyclobenzaprine 5 MG tablet, Take 1 tablet by mouth 3 times daily as needed for Muscle spasms for up to 7 days., Disp: 20 tablet, Rfl: 0 oxyCODONE 5 MG tablet, Take 1 tablet by mouth every 6 hours as needed for Moderate Pain or Severe Pain for up to 7 days., Disp: 28 tablet, Rfl: 0 predniSONE 10 MG tablet, Take 1 tablet by mouth daily every morning., Disp: , Rfl: Allergies: Nsaids, Gabapentin, and Ibuprofen Family History: History reviewed. No pertinent family history. [facility] History and physical note* Madi Fuchs PA-C - 05/31/2024 8:15 AM EST Images from the original note were not included. PREOPERATIVE ASSESSMENT H&P [facility], [facility] Name: Dorian Claudio Date of Surgery: 06/14/2024 Surgeon: Dr. Meyer Pre-Op Diagnosis: Lumbar radiculopathy Planned Procedure: Left L4-5 microdecompression - 70 minutes Anesthesia Type: planned for general anesthesia SUMMARY AND RECOMMENDATIONS Pending decision on if phosphate needs replenished. Strict NPO Diet recommended. Dorian Claudio is a 64 y.o. year old patient with a history the following diagnoses which increase his risk for perioperative complications. he being referred for pre operative evaluation and optimization. The relative status of the medical conditions are further explained in this note. 1. Preop exam for internal medicine 2. Lumbar radiculopathy 3. TATE (obstructive sleep apnea) 4. Hyperlipidemia, unspecified hyperlipidemia type 5. Essential hypertension, benign 6. Stage 3a chronic kidney disease ANESTHESIA and AIRWAY Anesthesia alerts: PONV, TATE Personal history of problems related to anesthesia (ex.Malignant Hyperthermia): Yes- PONV Family History of problems related to anesthesia (ex.Malignant Hyperthermia: no Pacer/AICD: no Nerve stimulators (DBS, PNS, SCS): no Parenteral Access: no Glaucoma: no TATE: yes- unable to tolerate CPAP Mallampati class - 3 TM Distance - 3 FB Oral Opening - 3 FB Teeth - normal dentition for age Cervical range of motion - within normal limits, denies UE radiculopathy on exam. Neck circumference - Neck Circumference (cm): 41 Body mass index is 24.95 kg/m . Allergies and adverse drug reactions Allergies Allergen Reactions Nsaids Other Reaction(s): kidney disease Gabapentin Redness burning/redness Ibuprofen Other Reaction(s): Other: See Comments STAGE 3 KIDNEY DISEASE ANESTHESIA/AIRWAY ASSESSMENT AND PLAN- # Anesthesia Alerts as above if applicable # Previous Airway Details below (if available) CARDIOVASCULAR Do you take Aspirin or other antiplatelet agents? no Do you take anti-coagulations? no Beta Cherie: no Patient denies a history of cardiac events or CO. Denies chest pain with ambulation or ADLs around the house. Denies palpitations, denies LE edema, denies orthopnea, denies worsening SOB over the past few months. ASSESSMENT AND PLAN- # Functional status - METS: Moderate: 4-7 METS functional status. 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 Prior to his back injury he was working out consistently without CP or SOB. # Pre-operative Risk Evaluation: Patient Meets the Following RCRI Criteria (RCRI): None: 0 criteria suggesting a 3.9% risk of major cardiac events or within 30 days. Dorian Claudio is at a Low risk based on the RCRI above. Patient can achieve METS > 4. Per ACC/AHA guidelines, the patient requires no further testing at this time. The patient is at elevated risk for the following perioperative complications not captured by the RCRI: N/A # Essential HTN: managed on amlodipine , appears controlled. BP Readings from Last 3 Encounters: 05/31/24 130/84 # Hyperlipidemia: on statin, endorses compliance with medication CARDIAC TESTING and REVIEW OF PREVIOUS CARDIAC TESTING/IMAGING ECHO 05/04/2021 STRESS TEST 06/17/2021 PULMONARY Denies SOB, asthma, COPD, recent fevers/chills. ASSESSMENT AND PLAN: # TATE: CPAP - Non Adherence - perioperative TATE precautions and encourage NIPPV use while naps post operatively. Cautious narcotic use. Patient was instructed to bring their device with them. PULMONARY TESTING AND REVIEW OF RECORDS if any SOCIAL/SUBSTANCE USE HISTORY Social History Tobacco Use Smoking Status Not on file Smokeless Tobacco Not on file Social History Substance and Sexual Activity Alcohol Use Not on file Social History Substance and Sexual Activity Drug Use Not on file Does the patient Vape? no ASSESSMENT AND PLAN: Denies regular/DAILY consumption of alcohol. Encouraged to avoid ETOH 5 days prior to surgery. Denies history of illicit drug use. HEMATOLOGY History of DVT/PE - no In case of surgeons plan or unforseen emergency, are you okay with receiving blood products? - yes Have you ever been diagnosed with any bleeding disorders in the past (Hemophilia A or B, Von Willebrand Disease)? - no Patient has not received blood transfusions in the last 30 days. ASSESSMENT AND PLAN # Hypophosphatemia - PCP and Dr. Meyer updated - Recommend standard VTE prophylaxis inpatient DIABETES and ENDOCRINOLOGY ASSESSMENT AND PLAN # Pre-diabetes -hgb A1c as below -monitor blood glucose periop Lab Results Component Value Date HGBA1C 5.8 (H) 05/31/2024 Patient does not have any history of thyroid disease ADDITIONAL DIAGNOSES OF CONCERN # Lumbar radiculopathy - upcoming procedure scheduled # CKD stage 3: Cr at 1.44 today and GFR at 55 today. Would recommend to renally dose medications. Avoid dehydration and nephrotoxic agents Denies concerning LUTs on exam today. Following with PCP -Dr. Rosario Estimated Creatinine Clearance: 56 mL/min (A) (by C-G formula based on SCr of 1.44 mg/dL (H)). Lab Results Component Value Date SODIUM 142 05/31/2024 POTASSIUM 4.3 05/31/2024 CHLORIDE 104 05/31/2024 CO2 29 05/31/2024 BUN 26 (H) 05/31/2024 CREATSERUM 1.44 (H) 05/31/2024 GLUCOSE 123 (H) 05/31/2024 Patient denies history of seizures, GERD, liver disease ADVANCED CARE PLANNING (for elderly and frail patients) # Code Status: Not on file MEDICATIONS Current Outpatient Medications Medication Sig Acetaminophen (TYLENOL ARTHRITIS EXT RELIEF PO) Take 2 tablets by mouth daily every morning. amLODIPine 5 MG tablet Take 1 tablet by mouth daily every morning. fenofibrate 160 MG tablet Take 1 tablet by mouth daily every morning. predniSONE 10 MG tablet Take 1 tablet by mouth daily every morning. therapeutic multivitamin-minerals tablet Take 1 tablet by mouth daily every morning. Medication A/P - Instructions for preoperative medications given to the patient in AVS. LABS Orders Placed This Encounter SCREEN: MRSA/MSSA CALCIUM CBC, EDIF, PLATELET CHEM 7 (LYTES,BUN,CREA,GLUC) HEMOGLOBIN A1C MAGNESIUM PHOSPHATE, INORGANIC PROTIME-INR PTT WITH MIXING STUDY NICOTINE SCREEN URINE PTT W/MIXING STUDY PERF ONLY EXTRA LIGHT BLUE TOP DOUBLE SPIN CBC AND ELECTRONIC DIFF Extra Tubes EXTRA URINE PREPARE TO TRANSFUSE OR RED BLOOD CELLS: 2 Units Type and Cross -Preadmission HCG QUALITATIVE, URINE URINALYSIS REFLEX TO CULTURE URINALYSIS REFLEX TO CULTURE PERFORMABLE EXTRA MICRO Lab A/P - Lab Results Component Value Date SODIUM 142 05/31/2024 POTASSIUM 4.3 05/31/2024 CHLORIDE 104 05/31/2024 CO2 29 05/31/2024 BUN 26 (H) 05/31/2024 CREATSERUM 1.44 (H) 05/31/2024 GLUCOSE 123 (H) 05/31/2024 Lab Results Component Value Date WBC 8.45 05/31/2024 HGB 15.9 05/31/2024 HCT 48.1 05/31/2024 PLATELET 296 05/31/2024 MCV 89.4 05/31/2024 Lab Results Component Value Date INR 0.9 05/31/2024 PT 12.4 05/31/2024 Nicotine: none detected MSSA/MRSA: negative UA: Clean catch without signs of infections. Patient asymptomatic. No indication to treat. Thank you for allowing us to participate in the care of Dorian Claudio. Total time spent on the day of patient's visit was 65 minutes. This includes but is not limited to time spent preparing to see the patient, precharting, reviewing outside medical records, time spent in the patient's room doing a history and physical exam along with medication education, ordering lab test and requesting medical information as well as interpreting lab results and testing completed at [facility] and outside facilities through [facility]. All the labs reviewed have been summarized and included in my history above. Note to patient: The Century Cures Act makes medical notes like these available to patients inthe interest of transparency. However, be advised this is a medical document. It is intended as suvg-iv-vlie communication. It is written in medical language and may contain abbreviations or verbiagethat are unfamiliar. It may appear blunt or direct. Medical documents are intended to carry relevant information, facts as evident, and the clinical opinion of the practitioner. [employer] dictation software may have been used to write this note. Please excuse any errors that may have occurred as a result of the dictation. Madi Fuchs PA-C [facility] [place] [id number] [facility] Review of Systems (OSUROS) Review of Systems Constitutional: Negative. Negative for appetite change, chills, diaphoresis and fever. HENT: Negative. Negative for dental problem. Respiratory: Negative for chest tightness, shortness of breath and wheezing. Cardiovascular: Negative for chest pain, palpitations and leg swelling. Gastrointestinal: Negative for abdominal pain, blood in stool, constipation, diarrhea, nausea and vomiting. Endocrine: Negative for cold intolerance. Genitourinary: Negative for dysuria. Musculoskeletal: Positive for back pain. Negative for neck stiffness. Neurological: Negative for seizures, syncope, weakness, light-headedness, numbness and headaches. Psychiatric/Behavioral: Negative for confusion. All other pertinent positives are also in the note above. Physical Examination (PHYSEXAM) Blood pressure 130/84, pulse 86, temperature 98.3 F (36.8 C), resp. rate 16, height 1.803 m (5' 11), weight 81.1 kg (178 lb 14.4 oz), SpO2 94%. Physical Exam Constitutional: General: He is not in acute distress. Appearance: Normal appearance. HENT: Head: Normocephalic. Comments: Mallampati score and dental exam in Anesthesia section above Mouth/Throat: Mouth: Mucous membranes are moist. Eyes: Pupils: Pupils are equal, round, and reactive to light. Neck: Vascular: No carotid bruit. Cardiovascular: Rate and Rhythm: Normal rate and regular rhythm. Pulses: Normal pulses. Heart sounds: Normal heart sounds. No murmur heard. No gallop. Pulmonary: Effort: Pulmonary effort is normal. No respiratory distress. Breath sounds: Normal breath sounds. No wheezing or rales. Abdominal: General: Abdomen is flat. Bowel sounds are normal. There is no distension. Tenderness: There is no abdominal tenderness. There is no guarding. Musculoskeletal: General: No swelling, tenderness or deformity. Normal range of motion. Cervical back: Normal range of motion. No rigidity or tenderness. Skin: General: Skin is warm. Neurological: General: No focal deficit present. Mental Status: He is alert and oriented to person, place, and time. Mental status is at baseline. Psychiatric: Mood and Affect: Mood normal. Behavior: Behavior normal. Thought Content: Thought content normal. No past medical history on file. No past surgical history on file. Patient Care Team: Jeff Rosario MD as PCP - General (Family Medicine) No family history on file. Social History Socioeconomic History Marital status: [facility]01-10-2025 History and physical note* Madi Fuchs PA-C - 05/31/2024 8:15 AM EST Images from the original note were not included. PREOPERATIVE ASSESSMENT H&P [facility] Name: Doiran Claudio Date of Surgery: 06/14/2024 Surgeon: Dr. Meyer Pre-Op Diagnosis: Lumbar radiculopathy Planned Procedure: Left L4-5 microdecompression - 70 minutes Anesthesia Type: planned for general anesthesia SUMMARY AND RECOMMENDATIONS Pending decision on if phosphate needs replenished. Strict NPO Diet recommended. Dorian Claudio is a 64 y.o. year old patient with a history the following diagnoses which increase his risk for perioperative complications. he being referred for pre operative evaluation and optimization. The relative status of the medical conditions are further explained in this note. 1. Preop exam for internal medicine 2. Lumbar radiculopathy 3. TATE (obstructive sleep apnea) 4. Hyperlipidemia, unspecified hyperlipidemia type 5. Essential hypertension, benign 6. Stage 3a chronic kidney disease ANESTHESIA and AIRWAY Anesthesia alerts: PONV, TATE Personal history of problems related to anesthesia (ex.Malignant Hyperthermia): Yes- PONV Family History of problems related to anesthesia (ex.Malignant Hyperthermia: no Pacer/AICD: no Nerve stimulators (DBS, PNS, SCS): no Parenteral Access: no Glaucoma: no TATE: yes- unable to tolerate CPAP Mallampati class - 3 TM Distance - 3 FB Oral Opening - 3 FB Teeth - normal dentition for age Cervical range of motion - within normal limits, denies UE radiculopathy on exam. Neck circumference - Neck Circumference (cm): 41 Body mass index is 24.95 kg/m . Allergies and adverse drug reactions Allergies Allergen Reactions Nsaids Other Reaction(s): kidney disease Gabapentin Redness burning/redness Ibuprofen Other Reaction(s): Other: See Comments STAGE 3 KIDNEY DISEASE ANESTHESIA/AIRWAY ASSESSMENT AND PLAN- # Anesthesia Alerts as above if applicable # Previous Airway Details below (if available) CARDIOVASCULAR Do you take Aspirin or other antiplatelet agents? no Do you take anti-coagulations? no Beta Cherie: no Patient denies a history of cardiac events or CO. Denies chest pain with ambulation or ADLs around the house. Denies palpitations, denies LE edema, denies orthopnea, denies worsening SOB over the past few months. ASSESSMENT AND PLAN- # Functional status - METS: Moderate: 4-7 METS functional status. 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 Prior to his back injury he was working out consistently without CP or SOB. # Pre-operative Risk Evaluation: Patient Meets the Following RCRI Criteria (RCRI): None: 0 criteria suggesting a 3.9% risk of major cardiac events or within 30 days. Dorian Claudio is at a Low risk based on the RCRI above. Patient can achieve METS > 4. Per ACC/AHA guidelines, the patient requires no further testing at this time. The patient is at elevated risk for the following perioperative complications not captured by the RCRI: N/A # Essential HTN: managed on amlodipine , appears controlled. BP Readings from Last 3 Encounters: 05/31/24 130/84 # Hyperlipidemia: on statin, endorses compliance with medication CARDIAC TESTING and REVIEW OF PREVIOUS CARDIAC TESTING/IMAGING ECHO 05/04/2021 STRESS TEST 06/17/2021 PULMONARY Denies SOB, asthma, COPD, recent fevers/chills. ASSESSMENT AND PLAN: # TATE: CPAP - Non Adherence - perioperative TATE precautions and encourage NIPPV use while naps post operatively. Cautious narcotic use. Patient was instructed to bring their device with them. PULMONARY TESTING AND REVIEW OF RECORDS if any SOCIAL/SUBSTANCE USE HISTORY Social History Tobacco Use Smoking Status Not on file Smokeless Tobacco Not on file Social History Substance and Sexual Activity Alcohol Use Not on file Social History Substance and Sexual Activity Drug Use Not on file Does the patient Vape? no ASSESSMENT AND PLAN: Denies regular/DAILY consumption of alcohol. Encouraged to avoid ETOH 5 days prior to surgery. Denies history of illicit drug use. HEMATOLOGY History of DVT/PE - no In case of surgeons plan or unforseen emergency, are you okay with receiving blood products? - yes Have you ever been diagnosed with any bleeding disorders in the past (Hemophilia A or B, Von Willebrand Disease)? - no Patient has not received blood transfusions in the last 30 days. ASSESSMENT AND PLAN # Hypophosphatemia - PCP and Dr. Meyer updated - Recommend standard VTE prophylaxis inpatient DIABETES and ENDOCRINOLOGY ASSESSMENT AND PLAN # Pre-diabetes -hgb A1c as below -monitor blood glucose periop Lab Results Component Value Date HGBA1C 5.8 (H) 05/31/2024 Patient does not have any history of thyroid disease ADDITIONAL DIAGNOSES OF CONCERN # Lumbar radiculopathy - upcoming procedure scheduled # CKD stage 3: Cr at 1.44 today and GFR at 55 today. Would recommend to renally dose medications. Avoid dehydration and nephrotoxic agents Denies concerning LUTs on exam today. Following with PCP -Dr. Rosario Estimated Creatinine Clearance: 56 mL/min (A) (by C-G formula based on SCr of 1.44 mg/dL (H)). Lab Results Component Value Date SODIUM 142 05/31/2024 POTASSIUM 4.3 05/31/2024 CHLORIDE 104 05/31/2024 CO2 29 05/31/2024 BUN 26 (H) 05/31/2024 CREATSERUM 1.44 (H) 05/31/2024 GLUCOSE 123 (H) 05/31/2024 Patient denies history of seizures, GERD, liver disease ADVANCED CARE PLANNING (for elderly and frail patients) # Code Status: Not on file MEDICATIONS Current Outpatient Medications Medication Sig Acetaminophen (TYLENOL ARTHRITIS EXT RELIEF PO) Take 2 tablets by mouth daily every morning. amLODIPine 5 MG tablet Take 1 tablet by mouth daily every morning. fenofibrate 160 MG tablet Take 1 tablet by mouth daily every morning. predniSONE 10 MG tablet Take 1 tablet by mouth daily every morning. therapeutic multivitamin-minerals tablet Take 1 tablet by mouth daily every morning. Medication A/P - Instructions for preoperative medications given to the patient in AVS. LABS Orders Placed This Encounter SCREEN: MRSA/MSSA CALCIUM CBC, EDIF, PLATELET CHEM 7 (LYTES,BUN,CREA,GLUC) HEMOGLOBIN A1C MAGNESIUM PHOSPHATE, INORGANIC PROTIME-INR PTT WITH MIXING STUDY NICOTINE SCREEN URINE PTT W/MIXING STUDY PERF ONLY EXTRA LIGHT BLUE TOP DOUBLE SPIN CBC AND ELECTRONIC DIFF Extra Tubes EXTRA URINE PREPARE TO TRANSFUSE OR RED BLOOD CELLS: 2 Units Type and Cross -Preadmission HCG QUALITATIVE, URINE URINALYSIS REFLEX TO CULTURE URINALYSIS REFLEX TO CULTURE PERFORMABLE EXTRA MICRO Lab A/P - Lab Results Component Value Date SODIUM 142 05/31/2024 POTASSIUM 4.3 05/31/2024 CHLORIDE 104 05/31/2024 CO2 29 05/31/2024 BUN 26 (H) 05/31/2024 CREATSERUM 1.44 (H) 05/31/2024 GLUCOSE 123 (H) 05/31/2024 Lab Results Component Value Date WBC 8.45 05/31/2024 HGB 15.9 05/31/2024 HCT 48.1 05/31/2024 PLATELET 296 05/31/2024 MCV 89.4 05/31/2024 Lab Results Component Value Date INR 0.9 05/31/2024 PT 12.4 05/31/2024 Nicotine: none detected MSSA/MRSA: negative UA: Clean catch without signs of infections. Patient asymptomatic. No indication to treat. Thank you for allowing us to participate in the care of Dorian Claudio. Total time spent on the day of patient's visit was 65 minutes. This includes but is not limited to time spent preparing to see the patient, precharting, reviewing outside medical records, time spent in the patient's room doing a history and physical exam along with medication education, ordering lab test and requesting medical information as well as interpreting lab results and testing completed at [facility] and outside facilities through [facility] Everywhere. All the labs reviewed have been summarized and included in my history above. Note to patient: The 21st Century Cures Act makes medical notes like these available to patients inthe interest of transparency. However, be advised this is a medical document. It is intended as [id number]-[id number] communication. It is written in medical language and may contain abbreviations or verbiagethat are unfamiliar. It may appear blunt or direct. Medical documents are intended to carry relevant information, facts as evident, and the clinical opinion of the practitioner. [employer] dictation software may have been used to write this note. Please excuse any errors that may have occurred as a result of the dictation. [facility] [address] [facility] Review of Systems (OSUROS) Review of Systems Constitutional: Negative. Negative for appetite change, chills, diaphoresis and fever. HENT: Negative. Negative for dental problem. Respiratory: Negative for chest tightness, shortness of breath and wheezing. Cardiovascular: Negative for chest pain, palpitations and leg swelling. Gastrointestinal: Negative for abdominal pain, blood in stool, constipation, diarrhea, nausea and vomiting. Endocrine: Negative for cold intolerance. Genitourinary: Negative for dysuria. Musculoskeletal: Positive for back pain. Negative for neck stiffness. Neurological: Negative for seizures, syncope, weakness, light-headedness, numbness and headaches. Psychiatric/Behavioral: Negative for confusion. All other pertinent positives are also in the note above. Physical Examination (PHYSEXAM) Blood pressure 130/84, pulse 86, temperature 98.3 F (36.8 C), resp. rate 16, height 1.803 m (5' 11), weight 81.1 kg (178 lb 14.4 oz), SpO2 94%. Physical Exam Constitutional: General: He is not in acute distress. Appearance: Normal appearance. HENT: Head: Normocephalic. Comments: Mallampati score and dental exam in Anesthesia section above Mouth/Throat: Mouth: Mucous membranes are moist. Eyes: Pupils: Pupils are equal, round, and reactive to light. Neck: Vascular: No carotid bruit. Cardiovascular: Rate and Rhythm: Normal rate and regular rhythm. Pulses: Normal pulses. Heart sounds: Normal heart sounds. No murmur heard. No gallop. Pulmonary: Effort: Pulmonary effort is normal. No respiratory distress. Breath sounds: Normal breath sounds. No wheezing or rales. Abdominal: General: Abdomen is flat. Bowel sounds are normal. There is no distension. Tenderness: There is no abdominal tenderness. There is no guarding. Musculoskeletal: General: No swelling, tenderness or deformity. Normal range of motion. Cervical back: Normal range of motion. No rigidity or tenderness. Skin: General: Skin is warm. Neurological: General: No focal deficit present. Mental Status: He is alert and oriented to person, place, and time. Mental status is at baseline. Psychiatric: Mood and Affect: Mood normal. Behavior: Behavior normal. Thought Content: Thought content normal. No past medical history on file. No past surgical history on file. Patient Care Team: Jeff Rosario MD as PCP - General (Family Medicine) No family history on file. Social History Socioeconomic History Marital status: [facility] Inst[facility]* Patient Instructions* Anthony Reese - 05/31/2024 8:15 AM EST PRIOR TO SURGERY INSTRUCTIONS Please follow these instructions prior to surgery to help us minimize delays and complications to your surgery THE FOLLOWING MEDICATIONS LABS, STUDIES, AND CONSULTATIONS WERE ORDERED TODAY: Orders Placed This Encounter SCREEN: MRSA/MSSA CALCIUM CBC, EDIF, PLATELET CHEM 7 (LYTES,BUN,CREA,GLUC) HEMOGLOBIN A1C MAGNESIUM PHOSPHATE, INORGANIC PROTIME-INR PTT WITH MIXING STUDY NICOTINE SCREEN URINE PREPARE TO TRANSFUSE OR RED BLOOD CELLS: 2 Units Type and Cross -Preadmission HCG QUALITATIVE, URINE URINALYSIS REFLEX TO CULTURE PREOPERATIVE MEDICATION INSTRUCTIONS Below are instructions for what to do with your medicines before your surgery/procedure. Take the medications marked take the morning of surgery/procedure with a sip of water. Please follow this table below for instructions on which medications to hold prior to surgery If you have a change in daily medications prior to surgery/procedure, call the [facility] at [phone]. Current Outpatient Medications Medication Sig Instructions Acetaminophen (TYLENOL ARTHRITIS EXT RELIEF PO) Take 2 tablets by mouth daily every morning. DO NOTtake the morning of surgery amLODIPine 5 MG tablet Take 1 tablet by mouth daily every morning. Take morning of surgery fenofibrate 160 MG tablet Take 1 tablet by mouth daily every morning. DO NOT take the morning of surgery predniSONE 10 MG tablet Take 1 tablet by mouth daily every morning. Take morning of surgery therapeutic multivitamin-minerals tablet Take 1 tablet by mouth daily every morning. DO NOT take for the 14 days prior to surgery DO NOT take Excedrin, ibuprofen, Advil, Voltaren (Diclofenac), Motrin, naproxen, or Aleve, Mobic (Meloxicam) for the 7 days before surgery unless your surgeon has instructed you otherwise. Acetaminophen (Tylenol) is ok to take up until the day of surgery for pain control OTHER MEDICATIONS: If you are on or have recently been started on any injectable medications for diabetes or weight loss (see list below), please call our office at [phone] for instructions on what to do with those medications. Your surgery is likely to get rescheduled or delayed if this medication is taken within a week of your surgery. exenatide (brand names Byetta and Bydureon) liraglutide (Victoza for diabetes, Saxenda for obesity) albiglutide (Tanzeum) dulaglutide (Trulicity) lixisenatide (Adlyxin) semaglutide (Ozempic and Rybelsus for diabetes, Wegovy for obesity) tirzepatide (dual GLP-1 and GIP agonist; Mounjaro for diabetes, Zepbound for obesity) VITAMINS & HERBALS Do NOT take herbal medications or vitamins such as, but not limited to, fish oil ([place]-3), garlic,glucosamine -chondroitin, gingko, ginseng, probiotics, or multivitamins) 2 weeks before surgery unless your surgeon instructed differently. If your Medical Doctor has prescribed vitamins or herbal supplements due to a medical condition such as malabsorption issues, only hold the day of surgery. DIET INSTRUCTIONS: NO food or drink after 11 pm the night before surgery except for enough water to take your medications. (No Candy, Mints and/or Gum). If your surgeon has given you special shakes to take prior to surgery, it is okay to take them and follow those instructions OTHER PREOPERATIVE INSTRUCTIONS: Patient instructed to bring CPAP machine, with prescribed settings, and mask day of surgery. Patient Education handout TATE Care after Sedation or Anesthesia given to patient. Today we completed a nasal swab culture to check for a specific bacteria called MRSA or MSSA. This is a bacteria that can live in the nose and cause no symptoms or illness. If your culture is positive, we will contact you and send in a prescription for mupirocin to your pharmacy. You will be instructed to rub the ointment into each of your nostrils twice a day for 5 days prior to your surgery. Your nurse will also swab your nose with a betadine swab in the preoperative area on your day of surgery. Please notify the nurse if you have an iodine allergy. To lessen your chance of getting an infection after your surgery, you will need to wash your skin with a special soap called 4% Chlorhexidine Gluconate (CHG) before your surgery. Your nurse has givenyou CHG soap today and written instructions; Getting Your Skin Ready for Surgery. Please review the instructions carefully prior to your surgery. PREOPERATIVE INSTRUCTIONS: If additional testing has been ordered by [facility] outside of what can be done today after your visit, we will contact you with an appointment date, location and time for this testing. Please complete this testing as it would be vital to proceeding with your surgery. Any delays in testing could result in delays in your surgery. Please bring remote/s for any devices that you may have implanted like ICDs, pacemakers, nerve stimulators (deep brain, vagus, pudendal, hypoglossal, sacral or spinal) Do not wear any jewelry, watches, rings, hairpieces, makeup, dentures, glasses or contact lenses onday of surgery. Do not wear artificial nails or nail amharic the day of surgery. Do NOT bring your hearing aids or dentures or partials with you into surgery. They may get lost. Give them to someone to bring to you after surgery Shower the night before and the morning of surgery. If we have provided you with a special soap, follow those directions. AVOID using surgical soap around eyes, ears, nose, mouth, and genital areas Avoid any creams, ointments or deodorant on the morning of surgery Do not shave, or pluck hair from anywhere near the surgical site for 1 week prior to surgery. [place] your teeth and rinse your mouth the morning of surgery. Avoid Swallowing toothpaste. If you are a female, under the age of 60, you may be required to provide a urine specimen the morning of surgery. DO NOT DRINK ALCOHOL for at least 5 days prior to surgery. AVOID USING NICOTINE or TOBACCO of any form around the time of surgery. This includes but not limited to: Smoking, Cigarettes, Vaping, Chewing/Rubbing Tobacco and Nicorette Gum. If you smoke, we recommend that you quit smoking at least 2 weeks prior to surgery as nicotine products can impair wound healing. Your anesthesia team recommends that you have no nicotine in your system for at least 24 hours (at a minimum) prior to anesthesia. Your surgery could get cancelled at your surgeon's discretion if you do not follow these instructions AVOID MARIJUANA USE for at least 72 hours prior to surgery. Arriving to surgery intoxicated or under the influence of recreational drugs may result in cancellation of procedure. If you have a cold or flu symptoms, recently hospitalized or new diagnosis, please contact your surgeon s office before your procedure. If you become ill, develop a fever, cough, develop any type of infection, or are admitted to the hospital for any reason within 14 days of your scheduled surgery, please notify our team ([facility] clinic)and your surgeon's office. You may need to have your surgery moved, as we would not want to put youat risk for complications, You MUST arrange for a responsible adult to drive you to your procedure, stay for the surgery, listen to discharge instructions, and drive you home after surgery, otherwise your surgery may be cancelled. 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 right Hand Dominant male who presents with pain 0/100 (Axial / Extremity %). Patient complaints of LLE pain x6 months, no trauma or injury. Pain radiates into left glute andinto the lateral aspect of his calf and the dorsum of his L foot. Reports numbness on the dorsal aspect of his foot. Notes subjective weakness in his LLE as well. Denies back pain. Patient reports difficulty putting on pants or tying his shoes due to the pain and subjective weakness. Feels that he is limping as well. 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 Pain worse with HF and bending. Pain better when he is laying in his recliner. No b/b incontinence. Tried PT 3 months ago which made the pain worse. Previous injections x2 about 3 months ago without improvement, patient unsure of level, no records available. On prednisone BID right now with some help. Tylenol - less effective. Has tried gabapentin in the past, had adverse reaction. Unable to take NSAIDs due to kidney Seen by neurosurgery at the [facility] (Dr. Dipak Alberto) and offered Left L4-L5 laminotomy,possible laminectomy but no OR availability until August 2024, and sought sooner date from local surgeon and is now 6w s/p microdiscectomy w/ Dr. Davenport, Left L4-5 without improvement. Patient also notes hx of right L5-S1 discectomy 12 years ago for similar symptoms in RLE with complete resolution. Dr. Jorge Marte, [facility]. Chart notes and referral notes reviewed for history. Review of Systems: Chart review of systems was reviewed prior to the interview. A subset of that information is presented below. Constitutional: - Unexplained Weight Loss No - Fever/chills No Chest: - Chest Pain No - Shortness of Breath No - Abdominal Pain No Musculoskeletal: -spine or extremity pain yes Neurological: -Extremity numbness yes -Tingling No - Weakness yes GI/: - Bowel incontinence No - Bladder incontinence No Bleeding disorders: - DVT/PE No - increased clotting disorder No - increased bleeding disorder No Past Medical History: No past medical history on file. Past Surgical History: No past surgical history on file. Social History: Smoking cigars Social History Occupational History Not on file Tobacco Use Smoking status: Not on file Smokeless tobacco: Not on file Substance and Sexual Activity Alcohol use: Not on file Drug use: Not on file Sexual activity: Not on file Family History: No family history on file. Medications: No outpatient medications prior to visit. No facility-administered medications prior to visit. Allergies: has no allergies on file. Physical Exam: General: Vitals: 05/10/24 0944 Weight: 79.4 kg (175 lb 1.6 oz) Height: 1.803 m (5' 11) No acute distress Psych: A+Ox3, Affect is normal Gait: Gait: slowed gait pattern, favoring RLE Heel walking not intact LLE and toe walking is intact but with difficulty intact tandem gait Rhomberg sign: neg Peripheral Vascular: LE swelling No Fingers/toes warm, well perfused. DP/PT palpable, capillary refill < 2 seconds Skin: Lesions on Skin No Spine: No skin lesions, ulcers noted. no visual asymmetry or rotation in cervicothoracolumbosacral spine noted. Cervicothoracolumbosacral spine nontender to palpation. Patient s spine is neutral (alignment). Muscle tone and bulk are normal. Range of motion of the cervical spine is full in flexion, extension, lateral bending and rotation without pain Range of motion of the lumbar spine is full in flexion, extension, lateral bending, and rotation with pain in all planes Dysraphism (neural tube defect) no, Prior surgical scars yes - one small percutaneous incision along the L lateral back and healed midline incision midline low lumbar Neuro: Upper extremity (R/L): deltoids R 5/5 L 5/5, biceps R 5/5, L 5/5, wrist extensors R 5/5 L 5/5, triceps R 5/5, L 5/5, finger flexors R 5/5, L 5/5, and first dorsal interossei R 5/5 L 5/5. Left KF 4+/5 limited to Lower extremity (R/L): hip flexors R 5/5, L 5/5, quadriceps R 5/5, L 5/5, anterior tibialis R 5/5, L 4+/5, EHL R 5/5 L 5/5, hamstrings R 5/5, L 4+/5 (pain limited), gastrocsoleus R 5/5, L 5/5. Reflexes (R/L): biceps R +2 / L +2, triceps R +2 / L +2, brachioradialis R +2 / L +2, patellar R +2/ L +2, Achilles deep tendon R +2 / L +2. Clonus (R/L): 0/0 Negative bilateral upper extremities Hoffmans Babinksi (R/L): -/- Straight leg raise (R/L): -/+ Sensation to light touch in the upper and lower extremities are intact except diminished sensation to light touch dorsum L foot. Imaging Independent review Xrays lumbar spine 05/10/2024 reveals diffuse spondylosis MRI lumbar spine 04/19/2024 without contrast CHILO reveals diffuse spondylosis without significant central stenosis. Right L5-S1 foraminal stenosis, left L4-5 lateral recess stenosis. No significant central stenosis. Right L5-S1 hemilaminotomy defect Other: Clinical impression: Radiculopathy Hx L L4-L5 microdiscectomy Hx R L5-S1 discectomy Plan: The natural history and course of the symptomatology of lumbar radiculopathy was discussed in detail with the patient. I answered all questions regarding the mode of onset, pathophysiology, symptoms,imaging findings, treatment options (both non-operative and operative) regarding his diagnosis. Recommend Left L4-L5 revision microdiscectomy [facility]. Consent obtained. Follow up for surgery. Plan of care discussed. All questions answered. The patient verbalized understanding of the disease process and agreed to the treatment plan formulated for this visit. Peter Figueroa MD * Roseline Meyer MD - 05/10/2024 9:45 AM EST Orthopaedic Surgery Attending (Spine) I have personally seen and examined Dorian Claudio and reviewed the relevant images in conjunction with the OMARI or resident/fellow. I independently interviewed, examined and formulated the medical decision making along with him or her and provided a substantive portion of the care for this patient.I personally performed all aspects of the medical decision making for this encounter. I agree with the clinical history, physical examination, and management plan detailed in the above note. I have personally discussed the diagnosis and management with the patient and family. 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 Tried physical therapy 3 months ago in [place] at [facility] with worsening pain H/o 12/2023 and 01/2024 spinal injection at [place], [place], no records available without improvement. Currently on steroids BID x 2 weeks. Unable to take nsaids due to kidney disease Has tried gabapentin but had adverse reaction Has seen Dr. Dipak Alberto at [facility], who recommended a left L4-5 hemilaminotomy. Saw a local surgeon, Dr. Davenport, and under went a left L4-5 microdecompression 04/03/2024 on [place], [place] (norecords available). This helped his leg pain some - 10-15%, but is still uncomfortable. H/o right L5-S1 microdiscectomy 12 years ago at the [place], [place]. Currently no complaints of rightleg symptoms. No hand dexterity issues. No bowel or bladder issues. 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 On physical examination, he has an antalgic gait pattern Slight difficulty with heel walking on the left Pain with lumbar range of motion Left far lateral horizontal incision and midline lumbar incision Midline lumbar incision 4/5 left TA (stable per patient for several months) Positvie SLR on the left Independent review Xrays lumbar spine 05/10/2024 reveals diffuse spondylosis MRI lumbar spine 04/19/2024 without contrast CHILO reveals diffuse spondylosis without significant central stenosis. Right L5-S1 foraminal stenosis, left L4-5 lateral recess stenosis. No significant central stenosis. Right L5-S1 hemilaminotomy defect The natural history and course of the symptomatology of lumbar radiculopathy was discussed in detail with the patient. I answered all questions regarding the mode of onset, pathophysiology, symptoms,imaging findings, treatment options (both non-operative and operative) regarding his diagnosis. He has exhausted all conservative/nonoperative treatment measures to include physical therapy, epidural steroid injections and medications therefore we willrecommend surgical intervention, to include left L4-5 microdecompression. Over 30 minutes was spent in consultation with this patient. Risks, benefits and alternatives to surgery were discussed. Risks discussed include but are not limited to catastrophic complications of and blindness, risks of anesthesia, blood loss, infection, nerve injury, dural tear, instability, failure to relieve symptoms, worsening of symptoms, adjacent level disease, need for further surgery, paralysis, and DVT/PE. Recommend MRI lumbar spine with contrast IF cleared by his gas distribution supervisor. He will update us. He will need [facility]. All questions were answered. The procedure was discussed in detail. Surgical consent was signed andreviewed. The patient and verbalized understanding and agreed to comply with the treatment plan formulated. Roseline Meyer MD documented in this [facility]11[facility] Evaluation note * Diagnosis Onset Date Resolution Status Admit Date Lumbar radiculopathy acute Job sanders 2023 2:22pm Recurrent herniation of lumb ar disc acute April 26 7:24am [facility] Work Phone: [phone]) 577-356511-13-2024 [facility] Medical Records Department [address] [place] [address] History Physical Exam 04/03/24 1210 MR#: [id number] Acct: [id number] Name: DORIAN CLAUDIO Rep #: [id number] : 1960 64 From: Pascual Davenport MD PCP: Dr. Jeff Rosario, DO Status:[facility] Location: [place] [address] History and Physical MR#: [id number] Acct: [id number] Name: DORIAN CLAUDIO Rep #: [id number] : 1960 Provider: Dr. Pascual Davenport MD Age/Sex: 64/M Location: [facility] Status: Signed Intake Vital Signs 02/28/2414:53 Height 5 ft 11 in Weight: 180 lb 2 oz BMI 25.1 Intake Visit Reasons: lumbar spine Accompanied by: Self Is patient in pain?: Yes Pain scale (1-10): 7 Allergies NSAIDS (Non-Steroidal Anti-Inflamma Adverse Reaction (Verified 03/28/24 14:25) STAGE 3 KIDNEY DISEASE Medications ???Medication ???Instructions ???Recorded ???Confirmed ???Type fenofibrate 160 mg tablet 160 mg PO DAILY 10/11/19 03/28/24 History acetaminophen 650 mg 1,300 mg PO DAILY 03/20/24 03/28/24 History tablet,extended release (Tylenol Arthritis Pain) amlodipine 5 mg tablet 5 mg PO DAILY 03/20/24 03/28/24 History ibuprofen 200 mg tablet 200 mg PO DAILY 03/20/24 03/28/24 History PFSH Medical History History of steroid therapy Arthritis Back pain Numbness and tingling History of pain when walking Hypertension History of echocardiogram History of stress test Fatigue Family history of coronary artery disease Wears glasses Wears contact lenses Alcohol use Prostate disease History of renal disease High cholesterol Smoker CPAP (continuous positive airway pressure) dependence Cardiology follow-up encounter Hypertriglyceridemia GERD (gastroesophageal reflux disease) TATE on CPAP BPH (benign prostatic hyperplasia) Stage III chronic kidney disease Surgical History Hx of neck surgery History of transurethral resection of prostate History of back surgery History of cholecystectomy Family History Father Atrial fibrillation Cardiac pacemaker in situGrandfather CAD (coronary artery disease) Myocardial infarction, Onset Age: 56 Social History household members: spouse Smoking Status: Current some day smoker tobacco type: cigars alcohol intake: current alcohol intake frequency: 0-2 drinks per day Alcohol type: wine substance use type: does not use caffeine: Yes Type: coffee Number of servings: 2 HPI lumbar spine Details: This documentation accurately reflects the service provided and the decisions made by me, Dr. Pascual Davenport MD 03/28/24 1422. Part of today???s visit was documented by Nancy TURNER , acting as scribe. DORIAN CLAUDIO is a 64 year old M here today for Left Extraforaminal discectomy L4-5 d.o.s. 04/03/2024. Patient signed consent and received his drinks and soap. 03/01/24: DORIAN CLAUDIO is a 64 year old M here today NEW patient referral from Dr Hermosillo for low back pain. He states that 3 months ago he woke up and had pain. He states that 12 years ago he did have a lumbar laminectomy that was done by Dr. Ayala at [facility] but he is now retired. He has been seeing Dr Hermosillo for 6 weeks and has had 2 injection which takes the edge off but doesn't completely relieve the pain. He had a lumbar epidural steroid L5-S1 injection. He does have radiating pain down his left buttock then into his left lateral calf to his willis and foot that goes to his little toes. He did do physical therapy 3 months ago which made the pain worse. Says that his pain has worsened in the 3 months. His PCP tried steroids which didn't help and also gave him gabapentin but he doesn't take it. He does have stage 3 kidney disease so he take Tylenol arthritis. He states that longer he walks the worse the pain gets. His pain is now affecting his ADLs such as putting his shoes and socks on or getting dressed. He notes even sneezing send his pain through the roof. He did have a recent MRI on 01/15/24 from an outside facility. Ortho Exam General General: Yes no acute distress Neurologic: Yes alert and Yes oriented x3 Spine SPINE TESTING CERVICAL THORACIC LUMBAR Musculoskeletal Strength 0=absent - 5=normal Details: Neurological exam of the lower extremities shows 5x5 power. Physical examination movements exacerbated pain. Antalgic when going from sitting to standing. Normal sensations across all dermatomes. No hyperreflexia. No clonus. No midline or paraspinal tenderness. Passive straight leg perez (more content not included)...[facility]10-24-2024 Miscellaneous Notes* Telephone Encounter - Nelson Newman RN - 03/14/2024 3:22 PM EDT Returned call to patient. He has seen a local provider who can offer surgery in March. Dr Alberto's next available for this is not until August He voiced appreciation for Dr Alberto and all his expertise but has decided to see the local surgeon for sooner surgery. Discussed this is understandable but he is always welcome to see Dr Alberto should he have any further spine needs. He voiced appreciation no further questions. * Telephone Encounter - Chio Esrtada - 03/12/2024 2:56 PM EDT Pt called; asking to get surgery scheduled. Please call to discuss; ph: [phone] [facility] Telephone encounter Note * Telephone Encounter - Nelson Newman RN - 03/14/2024 3:22 PM EDT Returned call to patient. He has seen a local provider who can offer surgery in March. Dr Alberto's next available for this is not until August He voiced appreciation for Dr Alberto and all his expertise but has decided to see the local surgeon for sooner surgery. Discussed this is understandable but he is always welcome to see Dr Alberto should he have any further spine needs. He voiced appreciation no further questions. [facility]10-[facility] Telephone encounter Note* Telephone Encounter - Chio Estrada - 03/12/2024 2:56 PM EDT Pt called; asking to get surgery scheduled. Please call to discuss; ph: [phone] [facility]10-15-2024 NoteHNO ID: [id number] Author: DIPAK ALBERTO MD Service: ? Author Type: Physician Type: Progress Notes Filed: 03/05/2024 10:11 Note Text: Staff note: Pain in buttock and calf LEFT sided Foot and ankle numbness 3 months of symptoms Injections [place] Midline 5.1 per patient, S3 kidney disease, cannot take NSAIDS Bending, walking worsens pain Pain is top of foot, LEFT buttock Examination 4/5 LEFT DF otherwise intact, normoreflexic MRI LR stenosis at 4.5 Xr without instability Plan LEFT 4.5 laminotomy, possible laminectomy RBAEO reviewed in comprehensive detail, all questions were answered to stated satisfaction, patient elected to proceed We discussed the minimum criteria for elective surgery: A. Imaging fits with history and examination and has surgical correctable findings B. Conservative modalities have been trialed in a meaningful way that have failed to provide relief C. The pain is significant enough to interfere with QOL and undergoing an irreversible surgical procedure makes sense to the patient from a symptom severity standpoint A and B were confirmed by me, C was confirmed by the patient. With this in mind it is reasonable to proceed with: As above I had a long discussion with the patient in the office today, they had many appropriate questions, all were answered to their satisfaction, no guarantees were offer nor implied in our discussion. Dipak Alberto, [facility]10-15-2024 History of Present illness Narrative* Dipak Alberto MD - 03/05/2024 9:51 AM EDT Staff note: Pain in buttock and calf LEFT sided Foot and ankle numbness 3 months of symptoms Injections [place] Midline 5.1 per patient, S3 kidney disease, cannot take NSAIDS Bending, walking worsens pain Pain is top of foot, LEFT buttock Examination 4/5 LEFT DF otherwise intact, normoreflexic MRI LR stenosis at 4.5 Xr without instability Plan LEFT 4.5 laminotomy, possible laminectomy RBAEO reviewed in comprehensive detail, all questions were answered to stated satisfaction, patientelected to proceed We discussed the minimum criteria for elective surgery: A. Imaging fits with history and examination and has surgical correctable findings B. Conservative modalities have been trialed in a meaningful way that have failed to provide relief C. The pain is significant enough to interfere with QOL and undergoing an irreversible surgical procedure makes sense to the patient from a symptom severity standpoint A and B were confirmed by me, C was confirmed by the patient. With this in mind it is reasonable toproceed with: As above I had a long discussion with the patient in the office today, they had many appropriate questions, all were answered to their satisfaction, no guarantees were offer nor implied in our discussion. Dipak Alberto MD documented in this encounterR[facility] Institute10-15-2024 History of Present illness Narrative* Eri Sumner RT(R) - 03/05/2024 9:10 AM EDT Radiology Service Progress Note PATIENT NAME: Dorian Claudio DATE OF SERVICE: March 05, 2024 TIME: 9:19 AM PATIENT IDENTITY VERIFICATION COMPLETED USING TWO (2) IDENTIFIERS: Name and Date of confirmedby patient verbally. FALL SCREENING: Has the patient had 2 falls in the last year or 1 fall with injury or currently using an Ambulatory Assistive Device (Walker, Cane, Wheelchair, Crutches, etc.)? No PATIENT GENDER DATA: Male PATIENT RELEVANT IMPLANT DATA REVIEWED: Not Applicable PATIENT PRESENTS WITH AN IMPLANTABLE OR ATTACHED ELECTROPLATER HELPER: No RADIOLOGY DEPARTMENT: General X-ray: Exam(s) Completed: Spine X-Ray(s): Lumbar AP / LAT / L5-S1 / FLEX-EXT PERIPHERAL IV DATA: Not applicable SIGNED BY: RT Stas(Barrie) March 05, 2024 9:19 AM documented in this encounterRiver[facility] Institute10-15-2024 NoteHNO ID: [id number] Author: ERI SUMNER RT(R) Service: Radiology Author Type: Technologist Type: Progress Notes Filed: 03/05/2024 09:19 Note Text: Radiology Service Progress Note PATIENT NAME: Dorian Claudio DATE OF SERVICE: March 05, 2024 TIME: 9:19 AM PATIENT IDENTITY VERIFICATION COMPLETED USING TWO (2) IDENTIFIERS: Name and Date of confirmed by patient verbally. FALL SCREENING: Has the patient had 2 falls in the last year or 1 fall with injury or currently using an Ambulatory Assistive Device (Walker, Cane, Wheelchair, Crutches, etc.)? No PATIENT GENDER DATA: Male PATIENT RELEVANT IMPLANT DATA REVIEWED: Not Applicable PATIENT PRESENTS WITH AN IMPLANTABLE OR ATTACHED ELECTROPLATER HELPER: No RADIOLOGY DEPARTMENT: General X-ray: Exam(s) Completed: Spine X-Ray(s): Lumbar AP / LAT / L5-S1 / FLEX-EXT PERIPHERAL IV DATA: Not applicable SIGNED BY: RT Stas(Barrie) March 05, 2024 9:19 [facility]08-30-2024 NoteHNO ID: [id number] Author: LALO COVARRUBIAS PA-C Service: ? Author Type: Physician Drilling Inspector Type: Progress Notes Filed: 01/19/2024 14:07 Note Text: C/o buttocks pain, left leg pain with numbness / tingling, weakness, difficulty walking. CMT: -PT -Injections -NSAIDs -Tylenol Hx of spinal surgery ~ 12 years ago. Lumbar MRI: moderate foraminal stenosis at L4-L5, moderate to severe foraminal stenosis on the right at L5-S1 Recommend New patient appt with Dr. Rodríguez with pre-visit xrays. [facility] History of Present illness Narrative* Lalo Covarrubias PA-C - 01/19/2024 2:04 PM EDT C/o buttocks pain, left leg pain with numbness / tingling, weakness, difficulty walking. CMT: -PT -Injections -NSAIDs -Tylenol Hx of spinal surgery ~ 12 years ago. Lumbar MRI: moderate foraminal stenosis at L4-L5, moderate to severe foraminal stenosis on the right at L5-S1 Recommend New patient appt with Dr. Rodríguez with pre-visit xrays. Lalo Covarrubias PA-C * Dagoberto Stephenson P - 01/19/2024 10:42 AM EDT Patient name: Dorian Claudio Are you being referred by a [place] for Spine Health Provider or Pain Management Provider at [facility]? No If answer is YES please schedule directly with surgeon, triage does not need to be completed. Is this a self-referral No If not, who is the Referring Provider Dr Derrell Hermosillo Is this a 2nd opinion from another spine surgeon? No Were you offered surgery? No MRI/CT/myelogram within 12 months? Yes If NO, please refer to medical spine or PCP to complete above imaging, triage does not need to be completed If YES, please ask for the name/address of the facility where the MRI/CT/myelogram was completed: [facility] Address: [address] [place] [address] [address], [place] [address] MRI/CT/myelogram viewable in Epic: No If not, please provide [phone] to fax in imaging reports for review. Also, please inform patient to hand carry imaging disc to appointment. XR (spine) within 12 months: Yes If YES, please ask for the name/address of the facility where the XR was completed: Same Dr. Rodríguez's patients: Have you had previous EMG/Nerve Conduction Study, Ultrasound, or MRI for thesesame symptoms? If YES, please ask for the name/address of the facility where they were completed: Requested provider (First and Last name): Pasquale Rodríguez Are you interested in a virtual visit if offered? No 1. Where are you having symptoms related to this visit? Buttocks pain Leg pain (L), weakness Numbness, tingling foot (L) Back pain No Leg pain Yes Arm pain No Neck pain No 2. Are you having any of the following symptoms: Difficulty walking Yes w/ limp Numbness Yes Weakness Yes Trouble using your hands? No 3. Have you had any injections or physical therapy in the last 12 months? Yes If YES then please ask for the name/address of the facility where the injections and/or physical therapy was completed [facility] Address: [address] [place] [address] [facility] Address: [address], [place] [address] Have you tried any other kinds of non-surgical treatments in the last 12 months? (For example: NSAIDS, muscle relaxants, analgesics, oral steroids, Chiropractor, Acupuncture): Ibuprofen Tylenol 4. Are you currently taking daily prescribed narcotic medications for your current symptoms (For example Oxycodone, Hydrocodone, Tramadol, Morphine, Other)? No 5. Have you had previous spinal surgery for this same symptoms? Yes If YES please ask for the name of facility/address of where the surgery was completed: 12 Yrs [facility] Additional Comments documented in this encounterR[facility] Institute08-30-2024 NoteHNO ID: [id number] Author: ?, ?, ? Service: ? Author Type: ? Type: Progress Notes Filed: 01/19/2024 14:07 Note Text: Patient name: Dorian Claudio Are you being referred by a [facility] for [facility] Provider or Pain Management Provider at [facility]? No If answer is YES please schedule directly with surgeon, triage does not need to be completed. Is this a self-referral No If not, who is the Referring Provider Dr Derrell Hermosillo Is this a 2nd opinion from another spine surgeon? No Were you offered surgery? No MRI/CT/myelogram within 12 months? Yes If NO, please refer to medical spine or PCP to complete above imaging, triage does not need to be completed If YES,? please ask for the name/address of the facility where the MRI/CT/myelogram was completed: [facility] Address: [address] [place] [address] [address], [place] [address] MRI/CT/myelogram viewable in [facility]: No If not, please provide [phone] to fax in imaging reports for review. Also, please inform patient to hand carry imaging disc to appointment. XR (spine) within 12 months: Yes If YES,? please ask for the name/address of the facility where the XR was completed: Same Dr. Rodríguez's patients: Have you had previous EMG/Nerve Conduction Study, Ultrasound, or MRI for these same symptoms? If YES,? please ask for the name/address of the facility where they were completed: Requested provider (First and Last name): Pasquale Rodríguez Are you interested in a virtual visit if offered? No 1. Where are you having symptoms related to this visit? Buttocks pain Leg pain (L), weakness Numbness, tingling foot (L) Back pain No Leg pain Yes Arm pain No Neck pain No 2. Are you having any of the following symptoms: Difficulty walking Yes w/ limp Numbness Yes Weakness Yes Trouble using your hands? No 3. Have you had any injections or physical therapy in the last 12 months? Yes If YES then please ask for the name/address of the facility where the injections and/or physical therapy was completed [facility] Address: [address] [place] [address] [facility] Address: [address] [place] [address] [address], [place] [address] Have you tried any other kinds of non-surgical treatments in the last 12 months? (For example: NSAIDS, muscle relaxants, analgesics, oral steroids, Chiropractor, Acupuncture): Ibuprofen Tylenol 4. Are you currently taking daily prescribed narcotic medications for your current symptoms (For example Oxycodone, Hydrocodone, Tramadol, Morphine, Other)? No 5. Have you had previous spinal surgery for this same symptoms? Yes If YES? please ask for the name of facility/address of where the surgery was completed: 12 Yrs [facility] Additional Comments [facility]08-29-2024 Evaluation + Plan note Future Scheduled Tests Laboratory* Prostate Specific Antigen 08/16/25 * Lipid Profile 08/16/25 * Complete Metabolic Panel 08/16/25 Radiology* MRI Spine Lumbar w/o Contrast 01/18/24 [facility] 07-31-2024 Evaluation + Plan note Future Scheduled Tests Laboratory* Prostate Specific Antigen 12/20/23 * Prostate Specific Antigen 01/04/23 * A1C Hemoglobin 12/20/23 * Lipid Profile 12/20/23 * Lipid Profile 01/04/23 * Complete Metabolic Panel 12/20/23 * Complete Metabolic Panel 01/04/23 [facility] 08-28-2023 Evaluation + Plan note Diagnostic Tests Pending * Lyme AB Early Disease 01/16/23 Future Scheduled Tests Laboratory* Prostate Specific Antigen 01/04/23 * Lipid Profile 01/04/23 * Complete Metabolic Panel 01/04/23 [facility] 08-16-2023 Evaluation + Plan note Future Scheduled Tests Laboratory* Prostate Specific Antigen 01/04/23 * Lipid Profile 01/04/23 * Complete Metabolic Panel 01/04/23 [facility] Evaluation + Plan note Future Appointments Appointment Date:12/01/2021 04:20:00 PM Scheduled Provider:JEFF ROSARIO DO Location:[facility] Appointment Type:PC Wellness Annual Future Scheduled Tests Laboratory* Lipid Profile 11/25/21 * Complete Metabolic Panel 11/25/21 [facility] Evaluation + Plan note Future Appointments Appointment Date:12/01/2021 04:20:00 PM Scheduled Provider:JEFF ROSARIO DO Location:[facility] Appointment Type:PC Wellness Annual Future Scheduled Tests Laboratory* Lipid Profile 11/25/21 * Complete Metabolic Panel 11/25/21 [facility] Evaluation + Plan note Future Appointments Appointment Date:01/04/2023 04:20:00 PM Scheduled Provider:JEFF ROSARIO DO Location:[facility] Appointment Type:PC Wellness Annual Future Scheduled Tests Laboratory* Prostate Specific Antigen 09/14/22 * Lipid Profile 12/01/22 * Complete Metabolic Panel 12/01/22 [facility] Evaluation + Plan note Future Appointments Appointment Date:04/25/2024 03:30:00 PM Scheduled Provider:JEFF ROSARIO DO Location:[facility] Appointment Type:PC OV Future Scheduled Tests Laboratory* Prostate Specific Antigen 12/20/23 * A1C Hemoglobin 12/20/23 * Lipid Profile 12/20/23 * Complete Metabolic Panel 12/20/23 Radiology* MRI Spine Lumbar w/o Contrast 01/18/24 [facility] Evaluation noteNo assessment information available [facility] Work Phone: Evaluation note* Diagnosis Lumbar foraminal stenosis- Primary Spinal stenosis, lumbar region, without neurogenic claudication documented [facility] [place]* Diagnosis Lumbar radiculopathy- Primary Thoracic or lumbosacral neuritis or radiculitis, unspecified documented in this encounter [facility] [place] [facility]* Diagnosis Lumbar foraminal stenosis Spinal stenosis, lumbar region, without neurogenic claudication [facility] this [facility] [place]* Diagnosis Low back pain with sciatica, sciatica laterality unspecified, unspecified back pain laterality, unspecified chronicity [facility] Diagnosis Low back pain with sciatica, sciatica laterality unspecified, unspecified back pain laterality, unspecified chronicity- Primary Lumbar radiculopathy Thoracic or lumbosacral neuritis or radiculitis, unspecified Low back pain with sciatica, sciatica laterality unspecified, unspecified back pain laterality, unspecified chronicity [facility]* Diagnosis Preop exam for internal medicine- Primary Other specified pre-operative examination Lumbar radiculopathy Thoracic or lumbosacral neuritis or radiculitis, unspecified TATE (obstructive sleep apnea) Obstructive sleep apnea (adult) (pediatric) Hyperlipidemia, unspecified hyperlipidemia type Essential hypertension, benign Stage 3a chronic kidney disease Hypophosphatemia Disorders of phosphorus metabolism Prediabetes Other abnormal glucose Spinal stenosis of lumbar region with neurogenic claudication Spinal stenosis, lumbar region, with neurogenic claudication [facility]* Diagnosis S/P lumbar discectomy- Primary Other postprocedural status [facility]* Diagnosis S/P lumbar discectomy- Primary Other postprocedural status Physical deconditioning Debility, unspecified [facility]* Diagnosis Onset Date Resolution Status Admit Date Encounter for screening colonoscopy acute October 24, 2024 2 :16pm [facility] Work Phone: Hospital course Narrative No data available for this section [facility] Hospital Discharge instructions No data available for this section [facility] Progress note No data available for this section [facility] Reason for referral (narrative)* Diagnostic Procedure Only (Routine) - New Request Specialty Diagnoses / Procedures Referred By Contac t Referred To Contact XR IMAGING Diagnoses Lumbar foraminal stenosis Procedures XR LUMBAR MOTION 4V AP/LAT/ FLEX/EXT RADEX SPINE LUMBOSACRAL MINIMUM 4 VIEWS Lalo Covarrubias PA-C [address] [place] [address] [place] [address] Referral ID Status Reason Start Date Expiration Date Visits Requested Visits Authorized [id number] New Request Auto-Generat ed Referral 01/19/2024 02/17/2025 1 1 [facility] for referral (narrative)* Diagnostic Procedure Only (Routine) - Closed Specialty Diagnoses / Procedures Referred By Contac t Referred To Contact XR IMAGING Diagnoses Lumbar foraminal stenosis Procedures XR LUMBAR MOTION 4V AP/LAT/ FLEX/EXT RADEX SPINE LUMBOSACRAL MINIMUM 4 VIEWS Lalo Covarrubias PA-C [address] [id number] [place] [address] Referral ID Status Reason Start Date Expiration Date V isits Requested Visits Authorized [id number] Closed Auto-Generate d Referral 01/19/2024 02/17/2025 1 1 [facility] for referral (narrative)No reason for referral information availableWLake [facility] Work Phone: Summary Purpose Family History No Family History Records Found Relationship Condition Age at Onset Recorded Date/T galileo father Atrial fibrillation Unknown Presence of cardiac pacemaker Unknown grandfather Coronary artery disease Unknown Myocardial infarction 56 Advance Directives No Advanced Directives Records FoundDocuments on File Type Date Recorded Patient Night Order Selector Expl anation Advance Directives and Living Will Power of Kiln Firer Latest Code Status on File Code Status Date Activated Date Inactivated Comments Full Code 10/01/2019 1:19 PM Full Code 10/01/2019 9:27 AM 10/01/2019 1:19 PM Latest Code Status on File Code Status Date Activated Date Inactivated Comments Full Code 10/01/2019 1:19 PM 10/02/2019 2:24 PM Advance Directive Response Recorded Date/ Time Living Will No April 14, 2 021 7:01pm Power of Kiln Firer No April 14, 2021 7:01pm Advance Directive Response Recorded Date/ Time Living Will No April 14, 2 021 7:01pm Do you have a Healthcare Power of Kiln Firer? No April 14, 2021 7:01pm Discharge Instructions * Instructions* Boris Kevin, - 10/02/2019 Learning About Urinary Catheter Care to Prevent Infection What is a urinary catheter? A urinary catheter is a flexible plastic tube used to drain urine from your bladder when you can't urinate on your own. The catheter allows urine to drain from the bladder into a bag. Two types of drainage bags may be used with a urinary catheter. A bedside bag is a large bag that you can hang on the side of your bed or on a chair. You can use it overnight or anytime you will be sitting or lying down for a long time. A leg bag is a small bag that you can use during the day. It is usually attached to your thigh or calf and hidden under your clothes. Having a urinary catheter increases your risk of getting a urinary tract infection. Germs may get on the catheter and cause an infection in your bladder or kidneys. The longer you have a catheter, the more likely it is that you will get an infection. You can help prevent this problem with good hygiene and careful handling of your catheter and drainage bags. How can you help prevent infection? Take care to be clean Always wash your hands well before and after you handle your catheter. Clean the skin around the catheter twice a day using soap and water. Dry with a clean towel afterward. You can shower with your catheter and drainage bag in place unless your doctor told you not to. When you clean around the catheter, check the surrounding skin for signs of infection. Look for things like pus or irritated, swollen, red, or tender skin around the catheter. Be careful with your drainage bag Always keep the drainage bag below the level of your bladder. This will help keep urine from flowing back into your bladder. Check often to see that urine is flowing through the catheter into the drainage bag. Empty the drainage bag when it is half full. This will keep it from overflowing or backing up. When you empty the drainage bag, do not let the tubing or drain spout touch anything. Be careful with your catheter Do not unhook the catheter from the drain tube. That could let germs get into the tube. Make sure that the catheter tubing does not get twisted or kinked. Do not tug or pull on the catheter. And make sure that the drainage bag does not drag or pull on the catheter. Do not put powder or lotion on the skin around the catheter. Talk with your doctor about your options for sexual intercourse while wearing a catheter. How do you empty a urine drainage bag? If your doctor has asked you to keep a record, write down the amount of urine in the bag before youempty it. Wash your hands before and after you touch the bag. 1. Remove the drain spout from its sleeve at the bottom of the drainage bag. 2. Open the valve on the drain spout. Let the urine flow out into the toilet or a container. Be careful not to let the tubing or drain spout touch anything. 3. After you empty the bag, close the valve. Then put the drain spout back into its sleeve at the bottom of the collection bag. How do you add a bedside bag to a leg bag? Wash your hands before and after you handle the bags. 1. Empty the leg bag attached to the catheter. 2. Put a clean towel under the leg bag. 3. Use an alcohol wipe to clean the tip of the bedside bag. Then connect the bedside bag to the legbag. How can you clean a bedside drainage bag? Many people clean their bedside bag in the morning if they switch to a leg bag. To clean a bedside drainage ba. Remove the bedside bag from the leg bag. 2. Fill the bag with 2 parts vinegar and 3 parts water. Let it stand for 20 minutes. 3. Empty the bag, and let it air dry. When should you call for help? Call your doctor now or seek immediate medical care if: You have symptoms of a urinary infection. These may include: ? Pain or burning when you urinate. ? A frequent need to urinate without being able to pass much urine. ? Pain in the flank, which is just below the rib cage and above the waist on either side of the back. ? Blood in your urine. ? A fever. Your urine smells bad. You see large blood clots in your urine. No urine or very little urine is flowing into the bag for 4 or more hours. Watch closely for changes in your health, and be sure to contact your doctor if: The area around the catheter becomes irritated, swollen, red, or tender, or there is pus draining from it. Urine is leaking from the place where the catheter enters your body. Follow-up care is a hitchcock part of your treatment and safety. Be sure to make and go to all appointments, and call your doctor if you are having problems. It's also a good idea to know your test resultsand keep a list of the medicines you take. Where can you learn more? Go to [email or web address] and sign in to your [employer] account. Enter U010 in the Search Health Information box to learn more about Learning About Urinary Catheter Care to PreventInfection. If you do not have an account, please click on the Sign Up Now link. Current as of: January 09, 2019Content Version: 12.4 [employer]. Care instructions adapted under license by [employer] If you have questions about a medical condition or this instruction, always ask your healthcare professional. [employer] disclaims any warranty or liability for your use of this information. documented in this encounter* Instructions* Wu Porras MD - 11/09/2019 Continue taking Bactrim. Ask Dr. Mccarthy to check your urine culture results. Wear catheter until follow up * Attachments The following attachments cannot be sent through Care Everywhere. * Urinary Retention (Slovak) * Indwelling Urinary Catheter Care: General Info (Slovak) documented in this encounter History of Present Illness * Pineda Mathis MD - 10/02/2019 6:31 AM EDT Department of Urology Daily Progress Note Patient Name: Dorian Claudio Date of : 1960 Admission Date: 10/01/2019 9:04 AM Today's Date: 10/02/2019 Subjective: Patient doing well this am No complaints Slept well Tolerating diet Has not ambulated yet Current Medications: Current Facility-Administered Medications Medication Dose Route Frequency Provider Last Rate Last Dose lactated ringers infusion Intravenous Continuous Dez Meadows MD 50 mL/hr at 10/01/19 0951 sodium chloride flush 0.9 % injection 10 mL 10 mL Intravenous 2 times per day Boris Herberth, DO sodium chloride flush 0.9 % injection 10 mL 10 mL Intravenous PRN Boris Herberth, DO acetaminophen (TYLENOL) tablet 650 mg 650 mg Oral Q6H PRN Boris Herberth, DO 650 mg at 10/01/191946 Or acetaminophen (TYLENOL) suppository 650 mg 650 mg Rectal Q6H PRN Boris Herberth, DO polyethylene glycol (GLYCOLAX) packet 17 g 17 g Oral Daily PRN Boris Herberth, DO enoxaparin (LOVENOX) injection 40 mg 40 mg Subcutaneous Daily Boris Herberth, DO 40 mg at 10/01/191946 0.9 % sodium chloride infusion Intravenous Continuous Boris Herberth, DO 75 mL/hr at 10/01/192144 ondansetron (ZOFRAN) injection 4 mg 4 mg Intravenous Q6H PRN Boris Herberth, DO phenazopyridine (PYRIDIUM) tablet 100 mg 100 mg Oral TID WC Boris Herberth, DO 100 mg at 10/01/19 1700 fenofibrate (TRIGLIDE) tablet 160 mg 160 mg Oral Daily Boris Herberth, DO 160 mg at 10/01/191946 tamsulosin (FLOMAX) capsule 0.4 mg 0.4 mg Oral BID Boris Herberth, DO 0.4 mg at 10/01/191945 Objective: Vitals: 10/01/19 1754 10/01/19 2115 10/02/19 0124 10/02/19 0548 BP: 117/75 110/73 110/67 117/75 Pulse: 70 70 66 61 Resp: Temp: 98.3 F (36.8 C) 97.2 F (36.2 C) 97.1 F (36.2 C) 98.9 F (37.2 C) TempSrc: Temporal Temporal Temporal Temporal SpO2: 94% 93% 95% 92% Weight: Height: Intake/Output: Intake/Output Summary (Last 24 hours) at 10/02/2019 0631 Last data filed at 10/02/2019 0533 Gross per 24 hour Intake 2682 ml Output 6910 ml Net -4228 ml Physical Exam: General: Alert, in no acute distress Head: Normocephalic, atraumatic Neck: supple, trachea is midline, no obvious masses Respiratory: normal effort, no audible wheezes Cardiovascular: regular pulse and no cyanosis Musculoskeletal: moving all extremities, normal tone Skin: warm and dry Psych: normal mood and affect, oriented Abdomen: soft, non distended, non tender, no organomegaly, no hernias : Mehta pink tinged on slow gtt No results found for: WBC, HGB, HCT, MCV, PLT No results found for: NA, K, CL, CO2, BUN, CREATININE, GLUCOSE, CALCIUM Urinalysis: Lab Results Component Value Date COLORU yellow 05/08/2019 GLUCOSEU neg 05/08/2019 KETUA neg 05/08/2019 BILIRUBINUR neg 05/08/2019 Urine Culture: No results found for: LABURIN Radiology: Assessment: 59 y.o. male POD #1 s/p TURP Plan: - 22F 3-way draining pink tinged urine on slow gtt - CBI clamped on rounds - Q4H manual irrigations - Will recheck urine in few hours - Regular diet - Ambulate - Likely home with mehta later today if urine remains clear Pineda Mathis MD PGY-3 Urology - Please page collection systems consultant resident with questions documented in this encounter Assessments Diagnosis S/P TURP Other postprocedural status Diagnosis Acute urinary retention Other specified retention of urine Hospital Course Note 48 Hour Discharge Summary No te Patient ID: Dorian Claudio [id number] 59 y.o. 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 Mccarthy on Monday Diet: regular diet Discharge Medications: Dorina Claudio Home Medication Instructions YESSENIA:[id number] Printed on:10/02/19927 Medication Information fenofibrate 160 MG tablet Take 160 mg by mouth daily Multiple Vitamins-Minerals (THERAPEUTIC MULTIVITAMIN-MINERALS) tablet Take 1 tablet by mouth daily phenazopyridine (PYRIDIUM) 200 MG tablet Take 1 tablet by mouth 3 times daily as needed for (more content not included)... Chief Complaint and Reason for Visit Chief Complaint CHRONIC SINUSITIS Chief Complaint CHRONIC SINUSITIS ATYPICAL FACIAL PAIN Chief Complaint Admit Date lumbar spine April 16, 2024 2:22pm RADICULOPATHY April 19, 2024 10:50am LUMBAR SPINE April 26, 2024 7 :24am Reason for Visit Admit Date Lumbar radiculopathy April 16, 2024 2:22pm Recurrent herniation of lumbar disc Dece mber 2023 7:24am Chief Complaint Admit Date Pre Colon October 24, 2024 2:16p m Reason for Visit Admit Date Encounter for screening colonoscopy October 24, 2024 2:16pm Reason for Referral Specialty Diagnoses / Procedures Referred By Myles brown Referred To Contact Diagnoses Preop exam for internal medicine Lumbar radiculopathy Procedures PREPARE TO TRANSFUSE OR RED BLOOD CELLS Madi Fuchs PA-C [address] [place] [address] Referral ID Status Reason Start Date Expiration Date V isits Requested Visits Authorized [id number] New Request 05/31/2024 06/25/2025 1 1 Specialty Diagnoses / Procedures Referred By Contac t Referred To Contact PreOp Diagnoses Lumbar radiculopathy Roseline Meyer MD [address] [place] [address] Referral ID Status Reason Start Date Expiration Date V isits Requested Visits Authorized [id number] New Request 05/10/2024 06/04/2025 1 1 Specialty Diagnoses / Procedures Referred By Contac t Referred To Contact Diagnoses Lumbar radiculopathy Procedures MRI SPINE LUMBAR WITH CONTRAST CHG MRI SPINAL CANAL LUMBAR W/CONTRAST MATERIAL Roseline Meyer MD [address] [place] [address] Referral ID Status Reason Start Date Expiration Date V isits Requested Visits Authorized [id number] New Request 05/10/2024 06/04/2025 1 1 Additional Source Comments (unrecognized sect ion and content) No Status Records FoundNo Status Records FoundNo Status Records FoundNo Status Records FoundNo Status Records FoundNo Status Records FoundNo Status Records Found INFORMATION SOURCE (unrecogn ized section and content) DATE CREATED AUTHOR 11/15/2017 [facility] DATE CREATED AUTHOR AUTHOR'S ORGANIZ ATION 04/11/2020 [facility] DATE CREATED AUTHOR AUTHOR'S ORGANIZ ATION 01/16/2024 [facility] ([place]) DATE CREATED AUTHOR AUTHOR'S ORGANIZ ATION 03/16/2024 [facility] DATE CREATED AUTHOR AUTHOR'S ORGANIZ ATION 09/15/2024 [facility] DATE CREATED AUTHOR AUTHOR'S ORGANIZ ATION 10/16/2024 [facility] DATE CREATED AUTHOR AUTHOR'S ORGANIZ ATION 12/16/2024 [facility] Reason for Visit (unrecogniz ed section and content) Reason Comments Urinary Retention Pt arrives via triag e from home with complaints of urinary retention. Pt states hasn't been able to urinate for 24 hours. Pt has a history of BPH and TURP 5 weeks ago. Reason Comments New Patient Reason Comments Radio Main J1 Specialty Diagnoses / Procedures Referred By Contac t Referred To Contact XR IMAGING Diagnoses Lumbar foraminal stenosis Procedures XR LUMBAR MOTION 4V AP/LAT/ FLEX/EXT RADEX SPINE LUMBOSACRAL MINIMUM 4 VIEWS Lalo Covarrubias PA-C [address] [id number] [facility] [place] [address] Referral ID Status Reason Start Date Expiration Date V isits Requested Visits Authorized [id number] Closed Auto-Generate d Referral 01/19/2024 02/17/2025 1 1 Reason Comments Schedule Surgery Reason Comments Pain 64 y.o. male c/o L L E pain, Pain radiates into L glute, L lateral calf into top of foot Duration: 4 months. Pain 6/10, Described as sharp and tingling. Agg. HF, walking, bending. Relieved with sitting up, side lying, sitting in recliner. Reports n/t. Phx: 6w s/p microdiscectomy w/ Barrie Keenan L4-5 Laminectomy 12 yrs at [facility]. Tx: PT at [facility], INJ in past, prednisone, Tylenol Arthritis. 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 Smoker: Yes Specialty Diagnoses / Procedures Referred By Contac t Referred To Contact Orthopaedics Diagnoses Intervertebral disc disorders with radiculopathy, lumbar region Jeff Rosario MD [address] [place] [address] Roseline Meyer MD [address] [place] [address] Referral ID Status Reason Start Date Expiration Date V isits Requested Visits Authorized [id number] Pending Review 04/29/2024 05/24/2025 1 1 Reason Comments Pre-operative Consultation Specialty Diagnoses / Procedures Referred By Contac t Referred To Contact PreOp Diagnoses Lumbar radiculopathy Roseline Meyer MD [address] [place] [address] Referral ID Status Reason Start Date Expiration Date V isits Requested Visits Authorized [id number] New Request 05/10/2024 06/04/2025 1 1 Reason Comments Post Op Visit Reason Comments Follow-up Care Team (unrecognized sect ion and content) Personnel Name: JEFF ROSARIO DO Address: Address: [facility] [address] [facility] [address] Care Team Personnel Name: JEFF ROSARIO DO Position: P4 Physician - Primary Care Med Service: Active Provider Member Role: Primary Care Physician Address: Address: [facility] [address] Care Team Related Persons Name: AGATHA CLAUDIO Address: Home [address] [place], [place] [id number] Address: Temporary [address] [place], [place] [id number] Care Teams (unrecognized sec tion and content) Team Status: Active Member Role Status Dates Dr. Jennifer Hoffman DO Family Provider Active Dr. Jeff Rosario DO Primary Care Provider Active Team Status: Inactive Member Role Status Dates Dr. Jeff Rosario DO Primary Care Provider Active Dr. Aries Mckeon MD Attending Provider, Referring Pr ovider Active Aboriginal Education Worker Coordinator Relationship Specialty Start Date End Date Jennifer Hoffman DO PCP - General Family Medicine 11/26/14 Aboriginal Education Worker Coordinator Relationship Specialty Start Date End Date Jennifer Hoffman DO PCP - General Family Medicine 11/26/14 Aboriginal Education Worker Coordinator Relationship Specialty Start Date End Date Jennifer Hoffman DO PCP - General Family Medicine 11/26/14 Aboriginal Education Worker Coordinator Relationship Specialty Start Date End Date Jeff Rosario MD [facility] [address] [address] PCP - General Family Medicine 05/10/24 Aboriginal Education Worker Coordinator Relationship Specialty Start Date End Date Jeff Rosario MD [facility] [place] [address] PCP - General Family Medicine 05/10/24 Aboriginal Education Worker Coordinator Relationship Specialty Start Date End Date Jeff Rosario MD [address] [place] [phone] PCP - General Family Medicine 05/10/24 Aboriginal Education Worker Coordinator Relationship Specialty Start Date End Date Jeff Rosario MD [address] [place] [phone] PCP - General Family Medicine 05/10/24 Team Status: Active Member Role Status Dates Dr. Jeff Rosario DO Primary Care Provider Active Team Status: Inactive Member Role Status Dates Dr. Jeff Rosario DO Primary Care Provider Active Start: April 16, 2024 End: April 16, 2024 Dr. Jeff Rosario DO Referring Provider Active Start: April 16, 2024 End: April 16, 2024 Dr. Pascual Davenport MD Attending Provider Active Start: April 16, 2024 End: April 16, 2024 Team Status: Inactive Member Role Status Dates Dr. Jeff Rosario DO Primary Care Provider Active Start: April 19, 2024 End: April 19, 2024 Dr. Pascual Davenport MD Attending Provider Active Start: April 19, 2024 End: April 19, 2024 Dr. Pascual Davenport MD Referring Provider Active Start: April 19, 2024 End: April 19, 2024 Team Status: Inactive Member Role Status Dates Dr. Jeff Rosario DO Primary Care Provider Active Start: April 26, 2024 End: April 26, 2024 Dr. Jeff Rosario DO Referring Provider Active Start: April 26, 2024 End: April 26, 2024 Dr. Pascual Davenport MD Attending Provider Active Start: April 26, 2024 End: April 26, 2024 Team Status: Inactive Member Role Status Dates Dr. Jeff Rosario DO Primary Care Provider Active Start: August 03, 2024 End: August 03, 2024 Dr. Jeff Rosario DO Attending Provider Active Start: August 03, 2024 End: August 03, 2024 Dr. Jeff Rosario DO Referring Provider Active Start: August 03, 2024 End: August 03, 2024 Aboriginal Education Worker Coordinator Relationship Specialty Start Date End Date Jeff Rosario MD [address] [place] [address] PCP - General Family Medicine 05/10/24 Team Status: Inactive Member Role Status Dates Dr. Jeff Rosario DO Primary Care Provider Active Start: October 24, 2024 End: October 24, 2024 Dr. Jeff Rosario DO Referring Provider Active Start: October 24, 2024 End: October 24, 2024 SANDI Deleon Attending Provider Active Start: October 24, 2024 End: October 24, 2024 Goals (unrecognized section and content) Goals may be documented in a n alternate section Source Comments (unrecognize d section and content) In the event this informatio n is protected by the Federal Confidentiality of Alcohol and Drug Abuse Patient Records regulations: The Federal rules restrict any use of the information to criminally investigate or prosecute any alcohol or drug abuse patient.[facility] InstituteIn the event this information is protected by the Federal Confidentiality of Alcohol and Drug Abuse Patient Records regulations: The Federal rules restrict any use of the information to criminally investigate or prosecute any alcohol or drug abuse patient.[facility] InstituteIn the event this information is protected by the Federal Confidentiality of Alcohol and Drug Abuse Patient Records regulations: The Federal rules restrict any use of the information to criminally investigate or prosecute any alcohol or drug abuse patient.[facility] InstituteIn the event this information is protected by the Federal Confidentiality of Alcohol and Drug Abuse Patient Records regulations: The Federal rules restrict any use of the information to criminally investigate or prosecute any alcohol or drug abuse patient.[facility] FOR RECORDS PERTAINING TO PATIENTS WHO ARE OR HAVE BEEN ENROLLED IN A CHEMICAL DEPENDENCY/SUBSTANCEABUSE PROGRAM, SOME INFORMATION MAY BE OMITTED. This clinical summary was aggregated from multiple sources. Caution should be exercised in using it in the provision of clinical care. This summary normalizes information from multiple sources, and as a consequence, information in this document may materially change the coding, format and clinical context of patient data. In addition, data may be omitted in some cases. CLINICAL DECISIONS SHOULD BE BASED ON THE PRIMARY CLINICAL RECORDS. [facility] [facility]. provides no warranty or guarantee of the accuracy or completeness of information in this document.
[2024-12-19 06:37] VITALS: BP 122/91; PULSE 64; RESP 16; TEMP 36.8; O2SAT 95; BMI 24.3
[2024-12-19] MEDS: Lactated Ringers 1,000 ML 15 ML IV (06:42)
--- NOTE | 2024-12-19 06:42 | PCM.HP.STD ---
HPI - General General Date of Admission: 12/19/24 Date of Service: 12/19/24 Chief Complaint: screening colon HPI Narrative STEVE CLAUDIO, is a 64 M who presents with Chief Complaint: screening colonoscopy - denies any any family h/o colon CA - screening colon 10 years ago - denies any change in bowel habits or weight loss - denies any HB, N/V - denies any heart or lung disease [facility] Medical History History of steroid therapy Arthritis Back pain Numbness and tingling History of pain when walking Hypertension History of echocardiogram History of stress test Fatigue Family history of coronary artery disease Wears glasses Wears contact lenses Alcohol use Prostate disease History of renal disease High cholesterol Smoker CPAP (continuous positive airway pressure) dependence Cardiology follow-up encounter Hypertriglyceridemia GERD (gastroesophageal reflux disease) TATE on CPAP BPH (benign prostatic hyperplasia) Stage III chronic kidney disease Home Medications ?Medication ?Instructions ?Recorded ?Last Taken ?Type fenofibrate 160 mg tablet 160 mg PO DAILY 10/11/19 12/19/24 History amlodipine 5 mg tablet 5 mg PO DAILY 03/20/24 12/19/24 History multivitamin 1 tab PO QDAY 10/24/24 12/12/24 History sod picosulf 10 mg-magnes 3.5 175 ml PO .COMPLEX 1 dose #350 mL 10/24/24 12/19/24 Rx gram-citric 12 gram/175 mL oral solution (Clenpiq) Allergy/AdvReac Type Severity Reaction Status Date / Time gabapentin AdvReac Other Verified 12/19/24 06:35 NSAIDS (Non-Steroidal AdvReac STAGE 3 Verified 12/19/24 06:35 Anti-Inflamma KIDNEY DISEASE Family History Father Atrial fibrillation Cardiac pacemaker in situ Grandfather CAD (coronary artery disease) Myocardial infarction, Onset Age: 55 Surgical History History of back surgery Hx of microdiscectomy Hx of neck surgery History of transurethral resection of prostate History of back surgery History of cholecystectomy Social History household members: spouse Smoking Status: Current some day smoker tobacco type: cigars alcohol intake: current alcohol intake frequency: 0-2 drinks per day Alcohol type: wine substance use type: does not use caffeine: Yes Type: coffee Number of servings: 2 ROS Constitutional Constitutional: Denies fatigue, fever(s), poor appetite, weight gain or weight loss Gastrointestinal Gastrointestinal: Denies belching, bloating, change in bowel habits, change in stool character, chewing difficulty, coffee ground emesis, constipation, cramping, diarrhea, dyspepsia, dysphagia, early satiety, excessive flatus, fecal incontinence, heartburn, hematemesis, hematochezia, hemorrhoids, loose stools, melena, nausea, odynophagia, rectal bleeding, tenesmus, vomiting or weight changes Physical Exam Const alert, oriented x3, no apparent distress and healthy appearing General Appearance: cooperative GI normal to inspection, nondistended, normoactive bowel sounds, soft to palpation, non-tender and non-distended Percussion: normal to percussion Rectal Exam: deferred Assessment & Plan Assessment/Plan (1) Encounter for screening colonoscopy: PLAN: Assessment and Plan Assessment and Plan (1) Encounter for screening colonoscopy: Status: Acute Medications: New sod picosulf-mag ox-citric ac 10 mg-3.5 gram- 12 gram/175 mL (Clenpiq) 175 mL orally; as directed for split dose bowel prep 350 mL 0RF Plan 64y/o male presents for consultation for age related screening colonoscopy. He reports colonoscopy was unremarkable 10 years ago. He denies any gastrointestinal symptoms or family history of colon cancer. I have scheduled him for a colonoscopy. Patient Instructions: Colonoscopy - Clenpiq
--- NOTE | 2024-12-19 07:19 | PCM.PRE.AN2 ---
ASA Classification* ASA Classification ASA Classification: 2 Assessment & Plan Anesthesia* Anesthesia Assessment Anesthesia Assessment: Discussed sedation and/or anesthesia options, risks, benefits, and alternatives with patient/parents/legal guardian/POA. Questions invited. The patient/parents/legal guardian/POA seems to understand and agrees to proceed with anesthesia plan. Reviewed the physical assessment, medical history, allergy history and patient home medications list prior to surgery/procedure/anesthetic and documented any changes. Performed airway and anesthesia risk assessments. Anesthesia Type Anesthesia Type: MAC History Source History Obtained from:: Patient, Chart and Significant Other Anesthesia Focused Assessment* Temperature: 98.2 F Pulse Rate: 64 Blood Pressure: 122/91 Respiratory Rate: 16 Pulse Ox: 95 Oxygen Delivery Method: Room Air Airway Assessment Mouth opens: >3 cm Mallampati Score: II Teeth Condition: Intact Neck Range of motion (ROM): Full ROM Labs Anesthesia Preop lab: CBC WBC 5.6 K/mm3 (4.4-11.0) 03/21/24 13:38 03/21/24 RBC 5.26 M/mm3 (4.6-6.2) 03/21/24 13:38 03/21/24 Hgb 15.4 g/dL (13.0-16.5) 03/21/24 13:38 03/21/24 Hct 46.2 % (40-54) 03/21/24 13:38 03/21/24 Plt Count 288 K/mm3 (150-450) 03/21/24 13:38 03/21/24 CHEMISTRY Potassium 4.2 mmol/L (3.3-5.1) 08/03/24 07:56 08/03/24 Sodium 141 mmol/L (133-145) 08/03/24 07:56 08/03/24 Magnesium 2.7 mg/dL (1.6-2.6) H 03/21/24 13:38 03/21/24 Phosphorus 3.0 mg/dL (2.5-4.9) 02/01/24 16:04 02/01/24 BUN 28 mg/dL (4-19) H 08/03/24 07:56 08/03/24 Creatinine 1.34 mg/dL (0.70-1.20) H 08/03/24 07:56 08/03/24 Glucose 107 mg/dL (70-99) H 08/03/24 07:56 08/03/24 POC Glucose 104 mg/dL (74-106) 04/03/24 12:00 04/03/24 COAG Pre-Assessment Diagnosis/Proposed Procedure Planned Operative Procedure(s): COLONOSCOPY Anesthesia History 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 When Was Last Pacemaker Check QUESTION #4 FULL TEXT: You/Your Family Experience fever (hyperthermia) with Anesthesia Last Oral Intake Last Oral intake: Last Oral Intake NPO since 23:00 12/19/24 06:37 Meds taken in AM with sips of Yes 12/19/24 06:37 water? 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 Female No 12/16/24 09:34 HX of Motion Sickness No 12/16/24 09:34 HX of N/V After Surgery No 12/16/24 09:34 Non-Smoker Yes 12/16/24 09:34 Duration of Surgery greater No 12/16/24 09:34 than 60 minutes Number of Risk Factors 1 12/16/24 09:34 PONV Score Low Risk 12/16/24 09:34 Height & Weight Height & Weight: Anesthesia: Height & Weight Height 5 ft 11 in 12/19/24 06:37 Weight: 79.3 kg 12/19/24 06:37 Body Mass Index (BMI) 24.3 12/19/24 06:37 Respiratory Assessment Respiratory Assessment - billet heater operator: Respiratory Tract Infection Hx - billet heater operator Hx Respiratory Tract Infection No 12/16/24 09:34 STOP Sleep Apnea STOP Sleep Apnea - billet heater operator: STOP Sleep Apnea - billet heater operator Hx Hypertension Yes: CONTROLLED ON MED 12/16/24 09:34 Hx Sleep Apnea Yes 12/16/24 09:34 CPAP Yes: NONCOMPLIANT 12/16/24 09:34 BIPAP No 12/16/24 09:34 Do you snore loudly (louder than talking or can be heard Do you often feel tired/ fatigued/ sleepy during daytime? Has anyone observed you stop breathing during sleep? STOP Results Positive 12/16/24 09:34 QUESTION #5 FULL TEXT : Do you snore loudly (louder than talking or can be heard through closed doors)? 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 Specify any problems Hx of Preganancy in last 3 N/A 12/16/24 09:34 Months Nurse Filling Out Transfusion VCHRISTIN 12/16/24 09:34 & Questions: Date: 12/16/24 12/16/24 09:34 Time: 09:35 12/16/24 09:34 Patient unable to answer at this time (ie. confused, unrespo /Reproduction History /Reproductive History - billet heater operator: /Reproductive Hx- billet heater operator Hx Now No 12/16/24 09:34 Gestational Age (in weeks): EDC: Hx Hx Para Hx Section SAB No 12/16/24 09:34 Active Medications Active Medications: Current Medications Generic Name Dose Route Start Last Admin Trade Name Freq PRN Reason Stop Dose Admin Lactated Ringer's 1,000 mls @ 15 mls/hr 12/19/24 06:30 12/19/24 06:42 IV 15 mls/hr .Q48H HEATHER Administration PFS Medical History History of steroid therapy Arthritis Back pain Numbness and tingling History of pain when walking Hypertension History of echocardiogram History of stress test Fatigue Family history of coronary artery disease Wears glasses Wears contact lenses Alcohol use Prostate disease History of renal disease High cholesterol Smoker CPAP (continuous positive airway pressure) dependence Cardiology follow-up encounter Hypertriglyceridemia GERD (gastroesophageal reflux disease) TATE on CPAP BPH (benign prostatic hyperplasia) Stage III chronic kidney disease Home Medications ?Medication ?Instructions ?Recorded ?Last Taken ?Type fenofibrate 160 mg tablet 160 mg PO DAILY 10/11/19 12/19/24 History amlodipine 5 mg tablet 5 mg PO DAILY 03/20/24 12/19/24 History multivitamin 1 tab PO QDAY 10/24/24 12/12/24 History sod picosulf 10 mg-magnes 3.5 175 ml PO .COMPLEX 1 dose #350 mL 10/24/24 12/19/24 Rx gram-citric 12 gram/175 mL oral solution (Clenpiq) Allergy/AdvReac Type Severity Reaction Status Date / Time gabapentin AdvReac Other Verified 12/19/24 06:35 NSAIDS (Non-Steroidal AdvReac STAGE 3 Verified 12/19/24 06:35 Anti-Inflamma KIDNEY DISEASE Family History Father Atrial fibrillation Cardiac pacemaker in situ Grandfather CAD (coronary artery disease) Myocardial infarction, Onset Age: 55 Surgical History History of back surgery Hx of microdiscectomy Hx of neck surgery History of transurethral resection of prostate History of back surgery History of cholecystectomy Social History household members: spouse Smoking Status: Current some day smoker tobacco type: cigars alcohol intake: current alcohol intake frequency: 0-2 drinks per day Alcohol type: wine substance use type: does not use caffeine: Yes Type: coffee Number of servings: 2 Review of Systems (Anesthesia) ROS Narrative System reviewed and no additional complaints, except as documented.
[2024-12-19 07:21] VITALS: BP 122/91; PULSE 64; RESP 16; TEMP 36.8; O2SAT 95
--- NOTE | 2024-12-19 07:59 | OP.PROVAT_ITS ---
12/19/2024 Sabas Rosario Re : Colonoscopy procedure for Dorian Wilson Dear Abraham This procedure was performed on November. My impressions and recommendations are as follows: Impressions : - Diverticulosis in the entire examined colon. - The examination was otherwise normal on direct and retroflexion views. - No specimens collected. Recommendations : - Discharge patient to home. - Resume previous diet. - Continue present medications. - Repeat colonoscopy in 10 years for screening purposes. My findings are described in the full procedure note, which is enclosed. If I can be of further assistance, please feel free to contact me at . Sincerely, Chris Laguerre, 12/19/2024 7:59:15 AM This report has been signed electronically.
--- NOTE | 2024-12-19 07:59 | OP.COLON_ITS ---
Patient Name: Dorian Wilson Procedure Date: 12/19/2024 7:26 AM Date of : 1960 Age: 64 Procedure: Colonoscopy Indications: Screening for colorectal malignant neoplasm Providers: Chris Laguerre DO Referring MD: Sabas Rosario Medicines: Monitored Anesthesia Care Patient Profile: Last Colonoscopy: several years ago. Complications: No immediate complications. Procedure: Pre-Anesthesia Assessment: - Prior to the procedure, a History and Physical was performed, and patient medications and allergies were reviewed. The patient is competent. The risks and benefits of the procedure and the sedation options and risks were discussed with the patient. All questions were answered and informed consent was obtained. Patient identification and proposed procedure were verified by the physician in the pre-procedure area. Mental Status Examination: alert and oriented. Airway Examination: normal oropharyngeal airway and neck mobility. Respiratory Examination: clear to auscultation. CV Examination: normal. Prophylactic Antibiotics: The patient does not require prophylactic antibiotics. Prior Anticoagulants: The patient has taken no anticoagulant or antiplatelet agents except for NSAID medication. ASA Grade Assessment: II - A patient with mild systemic disease. After reviewing the risks and benefits, the patient was deemed in satisfactory condition to undergo the procedure. The anesthesia plan was to use monitored anesthesia care (MAC). Immediately prior to administration of medications, the patient was re-assessed for adequacy to receive sedatives. The heart rate, respiratory rate, oxygen saturations, blood pressure, adequacy of pulmonary ventilation, and response to care were monitored throughout the procedure. The physical status of the patient was re-assessed after the procedure. After I obtained informed consent, the scope was passed under direct vision. Throughout the procedure, the patient's blood pressure, pulse, and oxygen saturations were monitored continuously. The colonoscope was introduced through the anus and advanced to the cecum, identified by appendiceal orifice and ileocecal valve. The colonoscopy was performed without difficulty. The patient tolerated the procedure well. The quality of the bowel preparation was adequate. The ileocecal valve, appendiceal orifice, and rectum were photographed. Scope In: 7:41:58 AM Scope Withdrawal Time 0 hours 9 minutes 23 seconds Scope Out: 7:55:58 AM Total Procedure Duration Time 0 hours 14 minutes 0 seconds Findings: The perianal and digital rectal examinations were normal. Multiple small and large-mouthed diverticula were found in the entire colon. The exam was otherwise without abnormality on direct and retroflexion views. Impression: - Diverticulosis in the entire examined colon. - The examination was otherwise normal on direct and retroflexion views. - No specimens collected. Recommendation: - Discharge patient to home. - Resume previous diet. - Continue present medications. - Repeat colonoscopy in 10 years for screening purposes. Procedure Code(s): --- Professional --- G0121, Colorectal cancer screening; colonoscopy on individual not meeting criteria for high risk CPT copyright 2021 [employer]. All rights reserved. The codes documented in this report are preliminary and upon bioinformatics computer scientist review may be revised to meet current compliance requirements. Chris Laguerre DO 12/19/2024 7:59:15 AM This report has been signed electronically. Number of Addenda: 0 Note Initiated On: 12/19/2024 7:26 AM
[2024-12-19 08:00] VITALS: BP 112/81; BP 122/91; PULSE 70; RESP 16; TEMP 36.7; O2SAT 97
[2024-12-19 08:05] VITALS: BP 111/74; BP 116/72; BP 122/91; PULSE 63; PULSE 66; RESP 16; TEMP 36.3; O2SAT 97
--- NOTE | 2024-12-19 08:05 | PCM.POST.ANE ---
Anesthesia: Postop Eval I Current Vital Signs Temperature: 98 F Pulse Rate: 60 Blood Pressure: 112/81 Respiratory Rate: 16 Pulse Ox: 97 Oxygen Delivery Method: Room Air Assessment Airway patent: Yes Spontaneous unlabored respirations: Yes Mental status: Asleep nausea: No Vomiting: No Anesthesia Complication: No Fluid Hydration Crystalloid volume administer (ml): 500 Total IV fluid infused: 500 Progress Note Anesthesia document: Postop Eval 1 completed: Yes
[2024-12-19 08:06] VITALS: BP 112/81; PULSE 60; RESP 16; TEMP 36.6; O2SAT 97
[2024-12-19 08:21] VITALS: BP 122/91
--- NOTE | 2024-12-19 12:38 | PCM.POSTANE2 ---
Anesthesia Postop Eval I Sum Postop Eval Completion status Anesthesia document: Postop Eval 1 completed: Yes Anesthesia Postop Eval I Summary Anesthesia Postop Eval I Summary: Anesthesia Postop Eval I: Assessment Summary Airway patent Yes 12/19/24 08:06 [email or web address] Spontaneous unlabored Yes 12/19/24 08:06 [email or web address] respirations Mental status Asleep 12/19/24 08:06 [email or web address] nausea No 12/19/24 08:06 [email or web address] Vomiting No 12/19/24 08:06 [email or web address] Anesthesia Postop Eval I: Fluid Summary Crystalloid volume administer 500 12/19/24 08:06 [email or web address] (ml) Colloids volume administered ( ml) Blood Product volume administered (ml) Total IV fluid infused 500 12/19/24 08:06 [email or web address] Anesthesia Postop Eval I: Summary Notes Anesthesia Complication No 12/19/24 08:06 [email or web address] Anesthesia Complication Comment: Post-operative progress note Anesthesia: Postop Eval II Evaluation Mental status: Awake and Calm Pain Level: 1 nausea: No Vomiting: No
== END 2024-12-19 08:25 | disposition home or self-care (01) ==
LOC: EN 06:08 → AC 06:10
PROVIDERS: PCP Family Medicine; Referring Provider Family Medicine; Visit Provider Internal Medicine Gastroenterology
PROC: 0DJD8ZZ Inspection of Lower Intestinal Tract, Via Natural or Artificial Opening Endoscopic (ICD-10-PCS; CPT 45378; principal; 2024-12-19 07:10)
DX: Z12.11 Encounter for screening for malignant neoplasm of colon (principal); N18.30 Chronic kidney disease, stage 3 unspecified; K57.30 Diverticulosis of large intestine without perforation or abscess without bleeding; I12.9 Hypertensive chronic kidney disease with stage 1 through stage 4 chronic kidney disease, or unspecified chronic kidney disease; E78.00 Pure hypercholesterolemia, unspecified; F17.290 Nicotine dependence, other tobacco product, uncomplicated; Z79.899 Other long term (current) drug therapy
CPT/HCPCS: 45378; J2405